=== PATIENT | male | born 1945 | race Caucasian/White ===

== ENCOUNTER 2016-07-12 23:03 | Inpatient (IN) ==
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
[2016-07-12] MEDS ORDERED: NS 1,000 ML IV SCH (23:45)
[2016-07-13] MEDS ORDERED: SALINE FLUSH 10ml SYRINGE IV PRN (00:09)
[2016-07-13] MEDS ORDERED: HALOPERIDOL 0.5 MG TABLET PO PRN (02:19)
[2016-07-13] MEDS ORDERED: HALOPERIDOL 5 MG/ML INJECTION IM PRN (02:19)
[2016-07-13] MEDS ORDERED: LORazepam 0.5 MG TABLET PO PRN (02:19)
--- NOTE | 2016-07-13 07:41 | CT Scan Report ---
Indication: falls with acute mental status change PROCEDURE: CT head/brain wo con: Encounter: Initial Comparison: September 13, 2015 Technique: Axial CT images through the head were performed without contrast. Iterative Reconstruction dose reducing technique was utilized. FINDINGS: Mild to moderate atrophy. The ventricles are stable. There is no evidence of acute intracranial hemorrhage, midline displacement, or mass effect. There are scattered areas of low attenuation in the white matter which most likely represent changes of chronic microvascular ischemia. The CT attenuation of the brain parenchyma is otherwise normal within the cerebellum, brain stem, and cerebral hemispheres. The tympanic cavities and mastoid air cells are free of appreciable disease. There are no definite fractures of the skull base, calvarium, or visualized portion of the midface. IMPRESSION: No CT evidence of acute traumatic intracranial injury. Stable head CT. There is a preliminary report by [employer] radiologic. .
[2016-07-13] MEDS ORDERED: CYANOCOBALAMIN (B-12) 500mcg TABLET PO SCH (09:00)
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
[2016-07-13] MEDS ORDERED: ASPIRIN 81 MG CHEWABLE TABLET PO SCH (09:30)
[2016-07-13] MEDS: TAMSULOSIN 0.4 MG CAPSULE PO SCH (09:42)
[2016-07-13] MEDS: ESCITALOPRAM 10 MG TABLET PO SCH (09:42)
[2016-07-13] MEDS: AMLODIPINE 10 MG TABLET PO SCH (09:42)
[2016-07-13] MEDS: APIXABAN 5 MG TABLET PO SCH ×3 (09:50→21:29)
[2016-07-13] MEDS: ASPIRIN 81 MG CHEWABLE TABLET PO SCH (10:16)
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
--- NOTE | 2016-07-13 15:21 | XRay Report ---
INDICATION: Altered mental status PROCEDURE: CHEST 2-VIEWS UPRIGHT (PA & LAT) Encounter: Initial COMPARISON: October 30, 2015 FINDINGS: The lungs are clear without evidence of focal abnormal airspace opacity. There is no pleural effusion or pneumothorax. The heart size, mediastinal contours and pulmonary vascularity are stable. Prior CABG. IMPRESSION: Stable chest without acute cardiopulmonary disease. .
[2016-07-13] MEDS: TRAZODONE 50 MG TABLET PO SCH (21:29)
[2016-07-13] MEDS: ROSUVASTATIN 10 MG TABLET PO SCH (21:52)
[2016-07-13] MEDS ORDERED: ROSUVASTATIN 10 MG TABLET PO SCH (22:00)
[2016-07-14] MEDS: TAMSULOSIN 0.4 MG CAPSULE PO SCH (08:07)
[2016-07-14] MEDS: AMLODIPINE 10 MG TABLET PO SCH (08:07)
[2016-07-14] MEDS: ASPIRIN 81 MG CHEWABLE TABLET PO SCH (08:07)
[2016-07-14] MEDS: APIXABAN 5 MG TABLET PO SCH ×2 (08:07→22:39)
[2016-07-14] MEDS: ESCITALOPRAM 10 MG TABLET PO SCH (08:07)
--- NOTE | 2016-07-14 19:39 | Neuropsych Progress Note ---
Generations Subjective Date: 07/14/16 - Sujective/Severity of Illness Medications: Amlodipine Besylate (Norvasc) 10 mg PO DAILY [facility] Last Admin: 07/14/16 08:07 Dose: 10 mg Apixaban (Eliquis) 5 mg PO BID [facility] Last Admin: 07/14/16 08:07 Dose: 5 mg Aspirin (Asa) 81 mg PO DAILY [facility] Last Admin: 07/14/16 08:07 Dose: 81 mg Escitalopram Oxalate (Lexapro) 10 mg PO DAILY [facility] Last Admin: 07/14/16 08:07 Dose: 10 mg Lisinopril/HCTZ (Prinzide 20/12.5) 1 tab PO DAILY [facility] Haloperidol (Haldol) 0.5 mg PO Q6H PRN PRN Reason: Extreme agitation Haloperidol Lactate (Haldol) 0.5 mg IM Q6H PRN PRN Reason: Extreme agitation Lorazepam (Ativan) 0.5 mg PO Q6H PRN PRN Reason: Extreme agitation Lorazepam (Ativan Inj) 0.5 mg IM Q6H PRN PRN Reason: Extreme agitation Rosuvastatin Calcium (Crestor) [address] [facility] Last Admin: 07/13/16 21:52 Dose: 5 mg Tamsulosin HCl (Flomax) 0.4 mg PO DAILY [facility] Last Admin: 07/14/16 08:07 Dose: 0.4 mg Trazodone HCl (Desyrel) [address] [facility] Last Admin: 07/13/16 21:29 Dose: 50 mg Subjective: Patient seen and chart reviewed. Case discussed with treatment team. On interview, patient is fully oriented, pleasant and cooperative. He reports that his mood is good and that he talked with his sister today. He admits to being frustrated with her for doing things like locking the barn so he can't get to it. Discussed some of his behavior changes over the past several months and he has limited insight -- he does state he spent too much money but is not upfront about what this was on (shares with me insurance for his motorcycle, new taillights but leaves out [employer] purchases, space heaters, etc. mentioned by sister). He can't describe any other behaviors uncharacteristic of him recently. Seems to be somewhat episodic per sister's report. Patient denies any SI, HI or AVH. Patient denies any adverse side effects related to psychotropic medications. Nursing staff report patient is pleasant, participates in activities well. At times he seems like he is tracking well but today had forgotten that he ate lunch shortly after doing so. No behavioral issues on unit. Patient slept 5.5 hours overnight in addition to a daytime nap yesterday. VSS. Patient is eating well. Psychotropic PRNs required in the past 24 hours: none. Hypernatremia improved - hospitalist following. Start Time: 14:00 Stop Time: 14:20 Mental Status Exam Vitals: Last Vital Signs Temp 98.3 F 07/14/16 16:22 Pulse 65 07/14/16 16:22 Resp 18 07/14/16 16:22 BP 147/60 H 07/14/16 16:22 Pulse Ox 93 07/14/16 16:00 Height: 1.68 m Weight: 101 kg - Mental Status Exam Muscle Strength/Tone: Normal Dressing: Casual Grooming: Fair Attitude: Cooperative Motor Activity: Normal Eye Contact: Good Speech: Normal Volume: Normal Rhythm: Appropriate Rhythm Orientation: Oriented to person, Oriented to place, Oriented to time Mood: Neutral Rate of Thoughts: Delayed Thought Organization: Circumstantial Associations: Illogical Abstract Reasoning: Poor abstract reasoning Thought Content: Other (Frustration with sister, limited insight - no other abnormal thought content elicited) Perception/Psychotic: Perception Normal Language: Naming Intact Fund of Knowledge: Other (Decreased from baseline) Memory: Poor-recent Suicidal Ideation: Denies Homicidal Ideation: Denies Insight: Limited Judgement: Limited Impulse Control: Fair - Laboratory Result Diagrams: 07/12/16 23:30 07/14/16 04:48 Laboratory Results - last 24 hr 07/14/16 04:48 Turbidity 20 Sodium 145 H Potassium 4.1 Chloride 105 Carbon Dioxide 29 Anion Gap 11 BUN 25.0 H Creatinine 0.8 GFR Calculation 96 BUN/Creatinine Ratio 31 H Glucose 91 Calculated Osmolality 283 H Calcium 9.0 Icterus Index 2 Specimen Hemolysis 15 Assessment and Plan (1) Major 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 Current visit: Yes Status: Chronic 07/14/16: Plan to order BRIAN/RIPPA as patient is managing own finances, continues to drive, etc. Discuss with sister to assess for past symptoms consistent with manic episodes and if appropriate, consider tapering Lexapro and alternatively starting a mood stabilizer. (2) Depression Current visit: Yes Status: Chronic (3) Acute hypernatremia Current visit: Yes Status: Acute (4) CAD (coronary artery disease) Current visit: Yes Status: Chronic (5) Chronic back pain Current visit: Yes Status: Chronic (6) HTN (hypertension) Current visit: Yes Status: Chronic (7) Hyperlipidemia Current visit: Yes Status: Chronic (8) Normocytic anemia Current visit: Yes Status: Chronic (9) Obesity (BMI 30-39.9) Current visit: Yes Status: Chronic (10) PAF (paroxysmal atrial fibrillation) Current visit: Yes Status: Chronic
[2016-07-14] MEDS: TRAZODONE 50 MG TABLET PO SCH (22:39)
[2016-07-14] MEDS: ROSUVASTATIN 10 MG TABLET PO SCH (22:40)
[2016-07-15] MEDS: ASPIRIN 81 MG CHEWABLE TABLET PO SCH (08:48)
[2016-07-15] MEDS: AMLODIPINE 10 MG TABLET PO SCH (08:49)
[2016-07-15] MEDS: ESCITALOPRAM 10 MG TABLET PO SCH (08:49)
[2016-07-15] MEDS: TAMSULOSIN 0.4 MG CAPSULE PO SCH (08:50)
[2016-07-15] MEDS: APIXABAN 5 MG TABLET PO SCH ×2 (08:50→20:15)
--- NOTE | 2016-07-15 15:40 | Neuropsych Progress Note ---
Generations Subjective Date: 07/15/16 - Sujective/Severity of Illness Medications: Amlodipine Besylate (Norvasc) 10 mg PO DAILY [facility] Last Admin: 07/15/16 08:49 Dose: 10 mg Apixaban (Eliquis) 5 mg PO BID [facility] Last Admin: 07/15/16 08:50 Dose: 5 mg Aspirin (Asa) 81 mg PO DAILY [facility] Last Admin: 07/15/16 08:48 Dose: 81 mg Lisinopril/HCTZ (Prinzide 20/12.5) 1 tab PO DAILY [facility] Haloperidol (Haldol) 0.5 mg PO Q6H PRN PRN Reason: Extreme agitation Last Admin: 07/15/16 14:42 Dose: 0.5 mg Haloperidol Lactate (Haldol) 0.5 mg IM Q6H PRN PRN Reason: Extreme agitation Lorazepam (Ativan) 0.5 mg PO Q6H PRN PRN Reason: Extreme agitation Last Admin: 07/15/16 14:42 Dose: 0.5 mg Lorazepam (Ativan Inj) 0.5 mg IM Q6H PRN PRN Reason: Extreme agitation Rosuvastatin Calcium (Crestor) 5 mg PO [facility] Last Admin: 07/14/16 22:40 Dose: 5 mg Tamsulosin HCl (Flomax) 0.4 mg PO DAILY [facility] Last Admin: 07/15/16 08:50 Dose: 0.4 mg Trazodone HCl (Desyrel) 50 mg PO [facility] Last Admin: 07/14/16 22:39 Dose: 50 mg Subjective: Patient seen and chart reviewed. Case discussed with treatment team. Patient reportedly has had a change in behavior, increased confusion and irritability. He slept only 3.5-4 hours overnight and has had multiple loose stools. He continues to eat well. On interview, patient has limited insight into any of this. He believes he slept 8 hours and says his mood is good. Again asked about past history of manic symptoms, which he denies. He then goes on to tell me about a shot to cure cancer that is given every 3 years and perseverates on this through the interview. Patient denies any SI, HI or AVH. I spoke with his sister/DPOA who was visiting this morning and says this behavior is similar to what has been happening at home. I asked about past symptoms of stacie and she stated she cannot give information prior to the past 3 years, but reports similar episodes increased irritability, decreased sleep, increased confusion and disorganized behavior, increased spending. Discussed med changes with her and she gave informed consent to discontinue Lexapro, start Depakote alternatively once medically stable. Ordered labs (CBC, CMP, UA, chest x-ray and head CT) to rule out any medical cause behind behavior/ mental status change. Psychotropic PRNs required in the past 24 hours: Ativan and Haldol PO given once in past 24 hours. Start Time: 15:00 Stop Time: 15:20 Mental Status Exam Vitals: Last Vital Signs Temp 98.5 F 07/15/16 08:00 Pulse 76 07/15/16 08:00 Resp 22 07/15/16 08:00 BP 146/71 H 07/15/16 08:00 Pulse Ox 97 07/15/16 08:00 Height: 1.68 m Weight: 101 kg - Mental Status Exam Muscle Strength/Tone: Normal Dressing: Casual Grooming: Fair Attitude: Cooperative, Argumentative (moreso with staff today) Motor Activity: Normal Eye Contact: Good Speech: Normal Volume: Normal Rhythm: Appropriate Rhythm Orientation: Oriented to person, Oriented to place, Oriented to time Mood: Irritable Rate of Thoughts: Delayed Thought Organization: Circumstantial Associations: Illogical Abstract Reasoning: Poor abstract reasoning Thought Content: Other (Frustration with sister, limited insight - no other abnormal thought content elicited) Perception/Psychotic: Perception Normal Language: Naming Intact Fund of Knowledge: Other (Decreased from baseline) Memory: Poor-recent Suicidal Ideation: Denies Homicidal Ideation: Denies Insight: Limited Judgement: Limited Impulse Control: Poor - Laboratory Result Diagrams: 07/15/16 18:12 07/15/16 18:12 Assessment and Plan (1) Bipolar disorder Qualifiers: Active/Remission status: currently active Current bipolar episode type: hypomanic Qualified Code(s): F31.0 - Bipolar disorder, current episode hypomanic Current visit: Yes Status: Chronic 07/15/16: Will order CBC, CMP, UA, chest x-ray, head CT to rule out medical cause for behavior change. If WNL, discontinue Lexapro and start Depakote for mood stabilization. Obtained informed consent from sister/DPOA on 07/15/16. (2) Major 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 Current visit: Yes Status: Chronic (3) Acute hypernatremia Problem details: Due to vascular changes and frontotemporal disease Current visit: Yes Status: Acute (4) CAD (coronary artery disease) Current visit: Yes Status: Chronic (5) Chronic back pain Current visit: Yes Status: Chronic (6) HTN (hypertension) Current visit: Yes Status: Chronic (7) Hyperlipidemia Current visit: Yes Status: Chronic (8) Normocytic anemia Current visit: Yes Status: Chronic (9) Obesity (BMI 30-39.9) Current visit: Yes Status: Chronic (10) PAF (paroxysmal atrial fibrillation) Current visit: Yes Status: Chronic
--- NOTE | 2016-07-15 16:28 | XRay Report ---
INDICATION: mental status change PROCEDURE: CHEST 2-VIEWS UPRIGHT (PA & LAT) Encounter: Initial COMPARISON: July 13, 2016 Findings: The lungs are stable in appearance without new focal airspace consolidation. There is no pleural effusion or pneumothorax. The heart size, pulmonary vascularity and mediastinal contours are unchanged. Prior CABG. IMPRESSION: Stable appearance of the chest without acute cardiopulmonary disease. .
--- NOTE | 2016-07-15 16:39 | Progress Note ---
Subjective: Abdon was in the dayroom. He didn't remember meeting me 2 days ago. He has had about 5 loose stools today but he states they have not been diarrhea. He feels bloated. No chest pain or SOA. As I was speaking to another patient, he joined in on our conversation and began to report his own medical history and offer treatment suggestions. Staff has noticed that he has been fixated on some behaviors today. He did not sleep very well last night. Objective Vital signs: Temp Pulse Resp BP Pulse Ox 98.2 F 79 18 146/74 H 98 07/15/16 15:44 07/15/16 15:44 07/15/16 15:44 07/15/16 15:44 07/15/16 15:44 Weight: 101 kg - Constitutional Present: no acute distress, well nourished, well developed, obese - Routine HEENT Exam Eye: Absent: conjunctival icterus - Routine Respiratory Exam Present: CTA bilaterally - Routine Cardiovascular Exam Present: S1, S2 - Routine Abdominal Exam Present: normoactive bowel sounds (slightly decreased), non tender, distended ( mild) - Routine Extremities Exam Present: no edema, pulses intact - Routine Musculoskeletal Exam Musculoskeletal: moving extremities well - Routine Skin Exam Present: intact, dry, warm - Routine Neurological Exam Present: alert - Routine Psychiatric Exam Present: normal affect Results - Labs CBC & Chem 7: 07/12/16 23:30 07/14/16 04:48 Assessment and Plan (1) Major neurocognitive disorder, due to Alzheimer's disease, with behavioral disturbance, mild Current visit: Yes Status: Acute (2) PAF (paroxysmal atrial fibrillation) Current visit: Yes Status: Chronic (3) CAD (coronary artery disease) Current visit: Yes Status: Chronic (4) HTN (hypertension) Current visit: Yes Status: Chronic (5) Hyperlipidemia Current visit: Yes Status: Chronic (6) Obesity (BMI 30-39.9) Current visit: Yes Status: Chronic (7) Chronic back pain Current visit: Yes Status: Chronic (8) Depression Current visit: Yes Status: Chronic (9) Acute hypernatremia Current visit: Yes Status: Acute (10) Normocytic anemia Current visit: Yes Status: Chronic Assessment and Plan: Loose stools, mild abdominal distention -monitor for now - still taking in adequate oral -GI panel ordered Hypernatremia -improved from 151 to 145 Lipids pending CXR neg. Psych -Depakote increased Sepsis Assessment - Evaluation Sepsis screening result: No Definite Risk - Focused Exam Vital Signs Temp Pulse Resp BP Pulse Ox 07/15/16 15:44 98.2 F 79 18 146/74 H 98 07/15/16 08:00 98.5 F 76 22 146/71 H 97 Cardiovascular exam: Present: S1, S2 Capillary refill: < 2-3 Seconds Hospital Course Summary Disclaimer: The visit summary below is not to be considered part of the above Progress Note. Hospital Course: 07/13/16 09:34 1. Hypernatremia - an IV was placed, but he has pulled it out. I encouraged him to drink more fluids today. Reassess BMP tomorrow am. 2. Microcytic anemia - routine labs such as vitamin B12 and folate have been ordered. His anemia is very mild. 3. Behavioral changes - per attending 4. CAD, PAF, and hx of CABG - check EKG. Heart was regular on exam. Continue home meds including Eliquis. Dr. Watkins is his stoker erector and servicer. 5. Falling, balance concern - monitor; consider PT eval. Head CT showed mild- moderate atrophy but no acute findings. 6. Discussed with Dr. De La Cruz (hospitalist service covering for him). Office note requested and reviewed. Medications updated according to patient's office visit from May,. 07/15/16 16:41 Loose stools, mild abdominal distention -monitor for now - still taking in adequate oral -GI panel ordered Hypernatremia -improved from 151 to 145 Lipids pending CXR neg. Psych -Depakote increased
[2016-07-15] MEDS: TRAZODONE 50 MG TABLET PO SCH (20:15)
[2016-07-15] MEDS: ROSUVASTATIN 10 MG TABLET PO SCH (20:15)
[2016-07-16] MEDS: AMLODIPINE 10 MG TABLET PO SCH (08:21)
[2016-07-16] MEDS: APIXABAN 5 MG TABLET PO SCH ×2 (08:21→20:55)
[2016-07-16] MEDS: TAMSULOSIN 0.4 MG CAPSULE PO SCH (08:21)
[2016-07-16] MEDS: ASPIRIN 81 MG CHEWABLE TABLET PO SCH (08:21)
--- NOTE | 2016-07-16 14:52 | Neuropsych Progress Note ---
Generations Subjective Date: 07/16/16 - Sujective/Severity of Illness Medications: Amlodipine Besylate (Norvasc) 10 mg PO DAILY [facility] Last Admin: 07/16/16 08:21 Dose: 10 mg Apixaban (Eliquis) 5 mg PO BID [facility] Last Admin: 07/16/16 08:21 Dose: 5 mg Aspirin (Asa) 81 mg PO DAILY [facility] Last Admin: 07/16/16 08:21 Dose: 81 mg Lisinopril/HCTZ (Prinzide 20/12.5) 1 tab PO DAILY [facility] Haloperidol (Haldol) 0.5 mg PO Q6H PRN PRN Reason: Extreme agitation Last Admin: 07/15/16 14:42 Dose: 0.5 mg Haloperidol Lactate (Haldol) 0.5 mg IM Q6H PRN PRN Reason: Extreme agitation Lorazepam (Ativan) 0.5 mg PO Q6H PRN PRN Reason: Extreme agitation Last Admin: 07/15/16 14:42 Dose: 0.5 mg Lorazepam (Ativan Inj) 0.5 mg IM Q6H PRN PRN Reason: Extreme agitation Rosuvastatin Calcium (Crestor) 5 mg PO [facility] Last Admin: 07/15/16 20:15 Dose: 5 mg Tamsulosin HCl (Flomax) 0.4 mg PO DAILY [facility] Last Admin: 07/16/16 08:21 Dose: 0.4 mg Trazodone HCl (Desyrel) 50 mg PO [facility] Last Admin: 07/15/16 20:15 Dose: 50 mg Subjective: Patient seen and chart reviewed. Case discussed with treatment team. On interview, patient is calm and cooperative. He reports his mood is good and he is feeling well. He has limited insight into symptoms but has been more cooperative and less confused today than yesterday. Patient denies any SI, HI or AVH. Patient denies any adverse side effects related to psychotropic medications. Patient slept 9 hours overnight. VSS. Patient is eating well. Psychotropic PRNs required in the past 24 hours: none. Labs, chest x-ray ordered and reviewed after change in mental status on 07/15. Head CT w/o contrast ordered and reviewed today; appears stable from previous. Discussed with sister/DPOA on 07/15 plan to hold Lexapro, start Depakote as patient's symptoms seem to be more consistent with manic episodes. Plan to start Depakote 250mg PO BID tonight. Start Time: 14:30 Stop Time: 14:50 Mental Status Exam Vitals: Last Vital Signs Temp 98.3 F 07/15/16 19:35 Pulse 86 07/16/16 07:54 Resp 16 07/16/16 07:54 BP 135/83 07/16/16 07:54 Pulse Ox 94 07/16/16 07:54 Height: 1.68 m Weight: 101 kg - Mental Status Exam Muscle Strength/Tone: Normal Dressing: Casual Grooming: Fair Attitude: Cooperative Motor Activity: Normal Eye Contact: Good Speech: Normal Volume: Normal Rhythm: Appropriate Rhythm Orientation: Oriented to person, Oriented to place, Oriented to time Mood: Other (Pleasant today, has been labile day to day) Rate of Thoughts: Delayed Thought Organization: Circumstantial, Perseverations (on sister taking away keys , locking barn to keep him from driving, etc.) Associations: Illogical Abstract Reasoning: Poor abstract reasoning Thought Content: Other (Frustration with sister, limited insight - no other abnormal thought content elicited) Perception/Psychotic: Perception Normal Language: Naming Intact Fund of Knowledge: Other (Decreased from baseline) Memory: Poor-recent Suicidal Ideation: Denies Homicidal Ideation: Denies Insight: Limited Judgement: Limited Impulse Control: Good (today; however has been variable day to day) - Laboratory Result Diagrams: 07/15/16 18:12 07/15/16 18:12 Laboratory Results - last 24 hr 07/15/16 07/15/16 07/15/16 17:55 18:12 18:12 WBC 8.0 RBC 4.14 L Hgb 12.2 L Hct 37.8 L MCV 91.3 MCH 29.5 MCHC 32.3 RDW Std Deviation 47.6 Plt Count 208 MPV 10.4 Immature Gran % (Auto) 0.3 Neut % (Auto) 60.9 Lymph % (Auto) 28.1 [place] % (Auto) 9.0 Eos % (Auto) 1.6 Baso % (Auto) 0.1 Neut # 4.8 Lymph # 2.2 [place]pson # 0.7 Eos # 0.1 Baso # 0.0 Abs Immat Gran (auto) 0.02 Turbidity < 20.0 Sodium 143 Potassium 3.8 Chloride 103 Carbon Dioxide 25 Anion Gap 15 BUN 20.0 Creatinine 0.9 GFR Calculation 84 BUN/Creatinine Ratio 22 Glucose 132 H Calculated Osmolality 280 Calcium 9.2 Total Bilirubin 0.30 Icterus Index < 2.0 AST 33 ALT 47 Alkaline Phosphatase 54 Total Protein 7.3 Albumin 4.5 Globulin 2.8 Albumin/Globulin Ratio 1.6 Specimen Hemolysis < 15.0 Ur Collection Type Urine, clean catch Urine Color Yellow Urine Clarity Clear Urine pH 6.0 Ur Specific [place] 1.015 Urine Protein Negative Urine Glucose (UA) Negative Urine Ketones Negative Urine Occult Blood Negative Urine Nitrate Negative Urine Bilirubin Negative Urine Urobilinogen 0.2 Ur Leukocyte Esterase Negative Urinalysis Comment Microscopic not ind. Assessment and Plan (1) Bipolar disorder Qualifiers: Active/Remission status: currently active Current bipolar episode type: hypomanic Qualified Code(s): F31.0 - Bipolar disorder, current episode hypomanic Current visit: Yes Status: Chronic (2) Major 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 Current visit: Yes Status: Chronic (3) Acute hypernatremia Problem details: Due to vascular changes and frontotemporal disease Current visit: Yes Status: Acute (4) CAD (coronary artery disease) Current visit: Yes Status: Chronic (5) Chronic back pain Current visit: Yes Status: Chronic (6) HTN (hypertension) Current visit: Yes Status: Chronic (7) Hyperlipidemia Current visit: Yes Status: Chronic (8) Normocytic anemia Current visit: Yes Status: Chronic (9) Obesity (BMI 30-39.9) Current visit: Yes Status: Chronic (10) PAF (paroxysmal atrial fibrillation) Current visit: Yes Status: Chronic 07/16/16: Have held Lexapro; plan to start Depakote DR 250mg PO BID tonight for mood stabilization. Obtained informed consent from patient's sister/DPOA on 07/15.
--- NOTE | 2016-07-16 15:28 | CT Scan Report ---
Indication: AMS PROCEDURE: CT head/brain wo con: Encounter: Initial Comparison: July 12, 2016 Technique: Axial CT images through the head were performed without contrast. Iterative Reconstruction dose reducing technique was utilized. FINDINGS: Generalized cerebral atrophy. The ventricles are unchanged. There are scattered areas of low attenuation in the white matter which most likely represent changes from chronic microvascular ischemia. The brainstem, cerebellum, and cerebral hemispheres otherwise have a normal morphology and CT attenuation. There is no evidence of midline displacement. No hemorrhage, signs of acute territorial stroke, mass effect, mass lesions, or edema is evident. The visualized portions of the skull base, midface, and calvarium demonstrate no abnormality. The paranasal sinuses are well aerated and free of significant disease. The tympanic and mastoid cavities appear normal. IMPRESSION: No acute intracranial abnormality or hemorrhage. Stable head CT. .
[2016-07-16] MEDS: DIVALPROEX 250 MG TABLET PO SCH (20:57)
[2016-07-16] MEDS: TRAZODONE 50 MG TABLET PO SCH (21:52)
[2016-07-16] MEDS: ROSUVASTATIN 10 MG TABLET PO SCH (21:54)
--- NOTE | 2016-07-17 06:31 | Neuropsych Progress Note ---
[facility] Subjective Date: 07/17/16 - Sujective/Severity of Illness Medications: Amlodipine Besylate (Norvasc) 10 mg PO DAILY [facility] Last Admin: 07/16/16 08:21 Dose: 10 mg Apixaban (Eliquis) 5 mg PO BID [facility] Last Admin: 07/16/16 20:55 Dose: 5 mg Aspirin (Asa) 81 mg PO DAILY [facility] Last Admin: 07/16/16 08:21 Dose: 81 mg Divalproex Sodium (Depakote) 250 mg PO BID [facility] Last Admin: 07/16/16 20:57 Dose: 250 mg Lisinopril/HCTZ (Prinzide 20/.5) 1 tab PO DAILY [facility] Haloperidol (Haldol) 0.5 mg PO Q6H PRN PRN Reason: Extreme agitation Last Admin: 07/15/16 14:42 Dose: 0.5 mg Haloperidol Lactate (Haldol) 0.5 mg IM Q6H PRN PRN Reason: Extreme agitation Lorazepam (Ativan) 0.5 mg PO Q6H PRN PRN Reason: Extreme agitation Last Admin: 07/15/16 14:42 Dose: 0.5 mg Lorazepam (Ativan Inj) 0.5 mg IM Q6H PRN PRN Reason: Extreme agitation Rosuvastatin Calcium (Crestor) 5 mg PO [facility] Last Admin: 07/16/16 21:54 Dose: 5 mg Tamsulosin HCl (Flomax) 0.4 mg PO DAILY [facility] Last Admin: 07/16/16 08:21 Dose: 0.4 mg Trazodone HCl (Desyrel) 50 mg PO [facility] Last Admin: 07/16/16 21:52 Dose: 50 mg Subjective: Pt. seen, chart reviewed. Case discussed w RN. Mr. Alonzo is a 71 year old white male here related to some mood symptoms consistent w Bipolar but is also noted to have some mild dementia as well. He was admitted from home secondary to confusion, risky behaviors, spending money inappropriately. Was noted to have failed DL test twice. Lives w his sister. Keeps wanting to take his motorcycle for a ride which hasn't even ran in years. He has two previous admits in recent years. RN reports his belligerent behaviors have calmed down some. Slept thru the night last night. Appetite is fair. Ambulates well. They report no daytime sedation. When I spoke with him, he expresses "I need to be let out of here." He has poor insight into why it is he's here but understands to some extent when I explained to him his risky behavior, spending , etc and that his sister is concerned. He reports his mood today is good. Start Time: 06:15 Stop Time: 06:30 Mental Status Exam Vitals: Last Vital Signs Temp 98.2 F 07/16/16 23:54 Pulse 67 07/16/16 23:54 Resp 15 07/16/16 23:54 BP 124/65 07/16/16 23:54 Pulse Ox 94 07/16/16 23:54 Height: 5 ft 6 in Weight: 101 kg - Mental Status Exam Muscle Strength/Tone: Normal Dressing: Casual Grooming: Fair Attitude: Cooperative Motor Activity: Normal Eye Contact: Good Speech: Normal Volume: Normal Rhythm: Appropriate Rhythm Orientation: Oriented to person, Oriented to place, Oriented to time Mood: Neutral, Other (Pleasant with me this morning, this has reportedly varied , labile at times) Rate of Thoughts: Delayed Thought Organization: Circumstantial, Perseverations (on sister taking away keys , locking barn to keep him from driving, etc.) Associations: Illogical Abstract Reasoning: Poor abstract reasoning Thought Content: Other (Frustration with sister, limited insight - no other abnormal thought content elicited) Perception/Psychotic: Perception Normal Language: Naming Intact Fund of Knowledge: Other (Decreased from baseline) Memory: Poor-recent Suicidal Ideation: Denies Homicidal Ideation: Denies Insight: Limited Judgement: Limited Impulse Control: Fair - Laboratory Result Diagrams: 07/15/16 18:12 07/15/16 18:12 Laboratory Results - last 24 hr 07/16/16 20:31 Specimen Comment Reorder as needed Tests Not Done Gip Reason Tests Not Done Stool, not diarrheic Assessment and Plan 617: Depakote started just yesterday. Will make sure he tolerates this today but will consider increase tomorrow, and then likely schedule VPA level for Tuesday.
[2016-07-17] MEDS: DIVALPROEX 250 MG TABLET PO SCH ×2 (11:36→20:43)
[2016-07-17] MEDS: TAMSULOSIN 0.4 MG CAPSULE PO SCH (11:36)
[2016-07-17] MEDS: ASPIRIN 81 MG CHEWABLE TABLET PO SCH (11:36)
[2016-07-17] MEDS: APIXABAN 5 MG TABLET PO SCH ×2 (11:36→20:43)
[2016-07-17] MEDS: AMLODIPINE 10 MG TABLET PO SCH (11:36)
--- NOTE | 2016-07-17 16:03 | Progress Note ---
<Treasure Dominguez - Last Filed: 07/17/16 16:00> Subjective: Abdon is in the TV area. Expresses frustration- wants to be at home. Is cooperative. Some variable behaviors documented per nurses. Difficulty with hygiene. Bowel/bladder incontinence. Objective Vital signs: Temp Pulse Resp BP Pulse Ox 97.8 F 66 16 133/91 H 92 07/17/16 07:48 07/17/16 07:48 07/17/16 07:48 07/17/16 07:48 07/17/16 07:48 Weight: 101 kg - Constitutional Present: no acute distress, well nourished, well developed, obese - Routine HEENT Exam Head: Present: normocephalic, atraumatic - Routine Respiratory Exam Present: CTA bilaterally. Absent: accessory muscle use, prolonged expiratory phase, rales, respiratory distress, rhonchi, wheezes, crackles - Routine Cardiovascular Exam Present: S1, S2. Absent: RRR (IRRR), murmur Comments: Occasional pauses in HR. - Routine Abdominal Exam Present: soft, normoactive bowel sounds, non distended, non tender - Routine Extremities Exam Absent: edema - Routine Musculoskeletal Exam Musculoskeletal: no tenderness - Routine Skin Exam Present: intact, dry, warm - Routine Neurological Exam Present: alert, moving all extremities. Absent: oriented X3 - Routine Psychiatric Exam Present: normal affect, cooperative. Absent: normal thought process, good insight, good judgment Results - Labs CBC & Chem 7: 07/15/16 18:12 07/15/16 18:12 Assessment and Plan (1) Major neurocognitive disorder, due to Alzheimer's disease, with behavioral disturbance, mild Current visit: Yes Status: Acute (2) PAF (paroxysmal atrial fibrillation) Current visit: Yes Status: Chronic (3) CAD (coronary artery disease) Current visit: Yes Status: Chronic (4) HTN (hypertension) Current visit: Yes Status: Chronic (5) Hyperlipidemia Current visit: Yes Status: Chronic (6) Obesity (BMI 30-39.9) Current visit: Yes Status: Chronic (7) Chronic back pain Current visit: Yes Status: Chronic (8) Depression Current visit: Yes Status: Deleted (9) Acute hypernatremia Problem details: Due to vascular changes and frontotemporal disease Current visit: Yes Status: Acute (10) Normocytic anemia Current visit: Yes Status: Chronic Assessment and Plan: 07/17/16- *Behavioral changes/Memory loss Per attending. Recurrent admissions due to risky behaviors. Support offered. *HTN- controlled. *Loose stool- resolved. *Hypernatremia- Resolved. Repeat labs Tuesday. Chart reviewed. Continue supportive care. Sepsis Assessment - Evaluation Sepsis screening result: No Definite Risk - Focused Exam Vital Signs Temp Pulse Resp BP Pulse Ox 07/17/16 07:48 97.8 F 66 16 133/91 H 92 Respiratory exam: Present: CTA bilaterally Cardiovascular exam: Present: S1, S2 Capillary refill: < 2-3 Seconds Hospital Course Summary Disclaimer: The visit summary below is not to be considered part of the above Progress Note. Hospital Course: 07/13/16 09:34 1. Hypernatremia - an IV was placed, but he has pulled it out. I encouraged him to drink more fluids today. Reassess BMP tomorrow am. 2. Microcytic anemia - routine labs such as vitamin B12 and folate have been ordered. His anemia is very mild. 3. Behavioral changes - per attending 4. CAD, PAF, and hx of CABG - check EKG. Heart was regular on exam. Continue home meds including Eliquis. Dr. Watkins is his special needs tutor. 5. Falling, balance concern - monitor; consider PT eval. Head CT showed mild- moderate atrophy but no acute findings. 6. Discussed with Dr. De La Cruz (hospitalist service covering for him). Office note requested and reviewed. Medications updated according to patient's office visit from May,. 07/15/16 16:41 Loose stools, mild abdominal distention -monitor for now - still taking in adequate oral -GI panel ordered Hypernatremia -improved from 151 to 145 Lipids pending CXR neg. Psych -Depakote increased 07/17/16 16:06 07/17/16- *Behavioral changes/Memory loss Per attending. Recurrent admissions due to risky behaviors. Support offered. *HTN- controlled. *Loose stool- resolved. *Hypernatremia- Resolved. Repeat labs Tuesday. Chart reviewed. Continue supportive care. <Melida Caro - Last Filed: 07/17/16 20:43> Subjective: 07/17/2016-I reviewed this chart, the patient history, and the PROJECT MANAGER/DESIGN MANAGER's/PA's documented findings as above. We discussed and formulated the assessment and plan as above with the additions below.-Dr. Caro Patient was seen this evening in his room lying in bed. He is awake. He denies any complaints. He states he wants to go home tomorrow. On exam he is alert and in no acute distress. Chest is clear to auscultation. Cardiovascular reveals a well controlled rate but an irregular rhythm. No murmurs. Abdomen is obese, soft, nontender with positive bowel sounds. Extremities reveal no edema. Skin is warm and dry and without rashes. Overall, the patient appears to be medically stable. Continue a look was for paroxysmal atrial fibrillation. Rate is controlled. B- 12 and folate are within normal limits. TSH is normal. Objective Vital signs: Temp Pulse Resp BP Pulse Ox 97.8 F 66 16 133/91 H 92 07/17/16 07:48 07/17/16 07:48 07/17/16 07:48 07/17/16 07:48 07/17/16 07:48 Results - Labs CBC & Chem 7: 07/15/16 18:12 07/15/16 18:12 Assessment and Plan (1) Major neurocognitive disorder, due to Alzheimer's disease, with behavioral disturbance, mild Current visit: Yes Status: Acute (2) PAF (paroxysmal atrial fibrillation) Current visit: Yes Status: Chronic (3) CAD (coronary artery disease) Current visit: Yes Status: Chronic (4) HTN (hypertension) Current visit: Yes Status: Chronic (5) Hyperlipidemia Current visit: Yes Status: Chronic (6) Obesity (BMI 30-39.9) Current visit: Yes Status: Chronic (7) Chronic back pain Current visit: Yes Status: Chronic (8) Depression Current visit: Yes Status: Deleted (9) Acute hypernatremia Problem details: Due to vascular changes and frontotemporal disease Current visit: Yes Status: Acute (10) Normocytic anemia Current visit: Yes Status: Chronic Hospital Course Summary Disclaimer: The visit summary below is not to be considered part of the above Progress Note.
[2016-07-17] MEDS: ROSUVASTATIN 10 MG TABLET PO SCH ×2 (20:42→21:04)
[2016-07-17] MEDS: TRAZODONE 50 MG TABLET PO SCH ×2 (20:42→21:05)
--- NOTE | 2016-07-18 07:40 | Neuropsych Progress Note ---
[facility] Subjective Date: 07/18/16 - Sujective/Severity of Illness Medications: Amlodipine Besylate (Norvasc) 10 mg PO DAILY [facility] Last Admin: 07/17/16 11:36 Dose: 10 mg Apixaban (Eliquis) 5 mg PO BID [facility] Last Admin: 07/17/16 20:43 Dose: 5 mg Aspirin (Asa) 81 mg PO DAILY [facility] Last Admin: 07/17/16 11:36 Dose: 81 mg Divalproex Sodium (Depakote) 250 mg PO BID [facility] Last Admin: 07/17/16 20:43 Dose: 250 mg Lisinopril/HCTZ (Prinzide 20/.5) 1 tab PO DAILY [facility] Haloperidol (Haldol) 0.5 mg PO Q6H PRN PRN Reason: Extreme agitation Last Admin: 07/15/16 14:42 Dose: 0.5 mg Haloperidol Lactate (Haldol) 0.5 mg IM Q6H PRN PRN Reason: Extreme agitation Lorazepam (Ativan) 0.5 mg PO Q6H PRN PRN Reason: Extreme agitation Last Admin: 07/15/16 14:42 Dose: 0.5 mg Lorazepam (Ativan Inj) 0.5 mg IM Q6H PRN PRN Reason: Extreme agitation Rosuvastatin Calcium (Crestor) 5 mg PO [facility] Last Admin: 07/17/16 21:04 Dose: Not Given Tamsulosin HCl (Flomax) 0.4 mg PO DAILY [facility] Last Admin: 07/17/16 11:36 Dose: 0.4 mg Trazodone HCl (Desyrel) 50 mg PO [facility] Last Admin: 07/17/16 21:05 Dose: Not Given Subjective: Pt seen. Chart reviewed. Case discussed w RN. Rn reports he has been "bored" here and repeatedly wants to "go home." He is fairly oriented, off on day. Has insight into why he's here to some extent, "got in an argument with my sister." Slept just 4.5 hours last night but he's sleeping this AM. His Trazodone was not given last night. Appetite good. Ambulates well. Tolerating Depakote fairly well thus far. Start Time: 07:00 Stop Time: 07:15 Mental Status Exam Vitals: Last Vital Signs Temp 98.5 F 07/18/16 00:50 Pulse 66 07/18/16 00:50 Resp 18 07/18/16 00:50 BP 135/57 07/18/16 00:50 Pulse Ox 94 07/18/16 00:50 Height: 5 ft 6 in Weight: 101 kg - Mental Status Exam Muscle Strength/Tone: Normal Dressing: Casual Grooming: Fair Attitude: Cooperative Motor Activity: Normal Eye Contact: Good Speech: Normal Volume: Normal Rhythm: Appropriate Rhythm Orientation: Oriented to person, Oriented to place, Oriented to time Mood: Neutral, Other (bored,) Rate of Thoughts: Delayed Thought Organization: Circumstantial, Perseverations (on sister taking away keys , locking barn to keep him from driving, etc.) Associations: Illogical Abstract Reasoning: Poor abstract reasoning Thought Content: Other (Frustration with sister, limited insight - no other abnormal thought content elicited) Perception/Psychotic: Perception Normal Language: Naming Intact Fund of Knowledge: Other (Decreased from baseline) Memory: Poor-recent Suicidal Ideation: Denies Homicidal Ideation: Denies Insight: Limited Judgement: Limited Impulse Control: Fair - Laboratory Result Diagrams: 07/15/16 18:12 07/15/16 18:12 Assessment and Plan (1) Bipolar disorder Qualifiers: Active/Remission status: currently active Current bipolar episode type: hypomanic Qualified Code(s): F31.0 - Bipolar disorder, current episode hypomanic Current visit: Yes Status: Chronic 07.18.16: Increase Depakote to 250mg PO q AM, 500mg PO q HS. VPA level for 07.21.16.
[2016-07-18] MEDS: AMLODIPINE 10 MG TABLET PO SCH (11:26)
[2016-07-18] MEDS: APIXABAN 5 MG TABLET PO SCH ×2 (11:26→20:05)
[2016-07-18] MEDS: TAMSULOSIN 0.4 MG CAPSULE PO SCH (11:26)
[2016-07-18] MEDS: DIVALPROEX 250 MG TABLET PO SCH (11:26)
[2016-07-18] MEDS: ASPIRIN 81 MG CHEWABLE TABLET PO SCH (11:26)
[2016-07-18] MEDS: TRAZODONE 50 MG TABLET PO SCH (20:05)
[2016-07-18] MEDS: DIVALPROEX 500 MG TABLET PO SCH (20:05)
[2016-07-18] MEDS: ROSUVASTATIN 10 MG TABLET PO SCH (20:05)
[2016-07-19] MEDS: AMLODIPINE 10 MG TABLET PO SCH (08:48)
[2016-07-19] MEDS: DIVALPROEX 250 MG TABLET PO SCH (08:48)
[2016-07-19] MEDS: APIXABAN 5 MG TABLET PO SCH ×2 (08:48→20:25)
[2016-07-19] MEDS: TAMSULOSIN 0.4 MG CAPSULE PO SCH (08:48)
[2016-07-19] MEDS: ASPIRIN 81 MG CHEWABLE TABLET PO SCH (08:48)
--- NOTE | 2016-07-19 11:04 | Progress Note ---
Subjective: Abdon was sitting in the day room. He did not remember meeting me previously. He began to tell me about his medical history (specifically heart surgery) and that he smoked 3 cigarettes and then threw them out. He denied any acute problems. No chest pain or shortness of breath. He has been eating well without any GI complaints. He has been typically alert and oriented 3 and cooperative and pleasant. Objective Vital signs: Temp Pulse Resp BP Pulse Ox 97.8 F 54 L 16 120/69 92 07/19/16 07:21 07/19/16 07:21 07/19/16 07:21 07/19/16 07:21 07/19/16 07:21 Weight: 101 kg - Constitutional Present: no acute distress, well nourished, well developed, obese - Routine HEENT Exam ENT: Present: mucous membranes moist, oropharynx clear - Routine Respiratory Exam Present: CTA bilaterally - Routine Cardiovascular Exam Present: RRR, S1, S2 - Routine Abdominal Exam Present: soft, normoactive bowel sounds - Routine Extremities Exam Present: no edema, pulses intact, normal capillary refill - Routine Musculoskeletal Exam Musculoskeletal: no clubbing or cyanosis - Routine Skin Exam Present: intact, dry, warm - Routine Neurological Exam Present: alert - Routine Psychiatric Exam Present: normal affect, normal thought process Results - Labs CBC & Chem 7: 07/15/16 18:12 07/19/16 06:08 Assessment and Plan (1) Major neurocognitive disorder, due to Alzheimer's disease, with behavioral disturbance, mild Current visit: Yes Status: Acute (2) PAF (paroxysmal atrial fibrillation) Current visit: Yes Status: Chronic (3) CAD (coronary artery disease) Current visit: Yes Status: Chronic (4) HTN (hypertension) Current visit: Yes Status: Chronic (5) Hyperlipidemia Current visit: Yes Status: Chronic (6) Obesity (BMI 30-39.9) Current visit: Yes Status: Chronic (7) Chronic back pain Current visit: Yes Status: Chronic (8) Depression Current visit: Yes Status: Deleted (9) Acute hypernatremia Problem details: Due to vascular changes and frontotemporal disease Current visit: Yes Status: Acute (10) Normocytic anemia Current visit: Yes Status: Chronic Assessment and Plan: Hypernatremia -Sodium minimally elevated at 145 Hypertension -Blood pressure has been variable with occasional moderate elevations -Restart lisinopril/hydrochlorothiazide tomorrow morning Hyperlipidemia -Lipid panel resulted -hypertrigliceridemia -continue crestor Psychiatry -Dr. Ortega increased Depakote. -VPA level to be reassessed on 07/21/16. Sepsis Assessment - Evaluation Sepsis screening result: No Definite Risk - Focused Exam Vital Signs Temp Pulse Resp BP Pulse Ox 07/19/16 07:21 97.8 F 54 L 16 120/69 92 Respiratory exam: Present: CTA bilaterally Cardiovascular exam: Present: S1, S2 Capillary refill: < 2-3 Seconds Hospital Course Summary Disclaimer: The visit summary below is not to be considered part of the above Progress Note. Hospital Course: 07/13/16 09:34 1. Hypernatremia - an IV was placed, but he has pulled it out. I encouraged him to drink more fluids today. Reassess BMP tomorrow am. 2. Microcytic anemia - routine labs such as vitamin B12 and folate have been ordered. His anemia is very mild. 3. Behavioral changes - per attending 4. CAD, PAF, and hx of CABG - check EKG. Heart was regular on exam. Continue home meds including Eliquis. Dr. Watkins is his power line installer. 5. Falling, balance concern - monitor; consider PT eval. Head CT showed mild- moderate atrophy but no acute findings. 6. Discussed with Dr. De La Cruz (hospitalist service covering for him). Office note requested and reviewed. Medications updated according to patient's office visit from May,. 07/15/16 16:41 Loose stools, mild abdominal distention -monitor for now - still taking in adequate oral -GI panel ordered Hypernatremia -improved from 151 to 145 Lipids pending CXR neg. Psych -Depakote increased 07/17/16 16:06 07/17/16- *Behavioral changes/Memory loss Per attending. Recurrent admissions due to risky behaviors. Support offered. *HTN- controlled. *Loose stool- resolved. *Hypernatremia- Resolved. Repeat labs Tuesday. Chart reviewed. Continue supportive care. 07/19/16 Hypernatremia -Sodium minimally elevated at 145 Hypertension -Blood pressure has been variable with occasional moderate elevations -Restart lisinopril/hydrochlorothiazide tomorrow morning Hyperlipidemia -Lipid panel resulted -hypertrigliceridemia -continue crestor Psychiatry -Dr. Ortega increased Depakote. -VPA level to be reassessed on 07/21/16.
--- NOTE | 2016-07-19 20:16 | Neuropsych Progress Note ---
[facility] Subjective Date: 07/19/16 - Sujective/Severity of Illness Medications: Amlodipine Besylate (Norvasc) 10 mg PO DAILY [facility] Last Admin: 07/19/16 08:48 Dose: 10 mg Apixaban (Eliquis) 5 mg PO BID [facility] Last Admin: 07/19/16 08:48 Dose: 5 mg Aspirin (Asa) 81 mg PO DAILY [facility] Last Admin: 07/19/16 08:48 Dose: 81 mg Divalproex Sodium (Depakote) 500 mg PO [facility] Last Admin: 07/18/16 20:05 Dose: 500 mg Divalproex Sodium (Depakote) 250 mg PO DAILY [facility] Last Admin: 07/19/16 08:48 Dose: 250 mg Lisinopril/HCTZ (Prinzide ) 1 tab PO DAILY [facility] Haloperidol (Haldol) 0.5 mg PO Q6H PRN PRN Reason: Extreme agitation Last Admin: 07/15/16 14:42 Dose: 0.5 mg Haloperidol Lactate (Haldol) 0.5 mg IM Q6H PRN PRN Reason: Extreme agitation Lorazepam (Ativan) 0.5 mg PO Q6H PRN PRN Reason: Extreme agitation Last Admin: 07/15/16 14:42 Dose: 0.5 mg Lorazepam (Ativan Inj) 0.5 mg IM Q6H PRN PRN Reason: Extreme agitation Rosuvastatin Calcium (Crestor) 5 mg PO [facility] Last Admin: 07/18/16 20:05 Dose: 5 mg Tamsulosin HCl (Flomax) 0.4 mg PO DAILY [facility] Last Admin: 07/19/16 08:48 Dose: 0.4 mg Trazodone HCl (Desyrel) 50 mg PO [facility] Last Admin: 07/18/16 20:05 Dose: 50 mg Subjective: Pt. seen. Chart reviewed. Case discussed w RN and multi-disc team. They report Abdon has remained pleasant and cooperative with them today. Has been compliant w the medications. Required no PRN doses for behavioral control or any agitation. His appetite has been good and he's sleeping fairly well. He slept 6.25 hours last night they report. ELLEN informs me that they learned he had an evaluation at [facility] in recent past at which time they advised he not drive. SW reports she has advised sister and I discussed that with him today as well. Although he was not happy with that information, he expressed he was made aware of that early today and seemed to understand, but disagree. Start Time: 16:00 Stop Time: 16:15 Mental Status Exam Vitals: Last Vital Signs Temp 98.0 F 07/19/16 16:00 Pulse 73 07/19/16 16:00 Resp 16 07/19/16 16:00 BP 152/71 H 07/19/16 16:00 Pulse Ox 95 07/19/16 16:00 Height: 5 ft 6 in Weight: 101 kg - Mental Status Exam Muscle Strength/Tone: Normal Dressing: Casual Grooming: Fair Attitude: Cooperative, Defensive (about the rec to no longer drive) Motor Activity: Normal Eye Contact: Good Speech: Normal Volume: Normal Rhythm: Appropriate Rhythm Orientation: Oriented to person, Oriented to place, Oriented to time Mood: Neutral Rate of Thoughts: Delayed Thought Organization: Organized (to some extent) Associations: Illogical Abstract Reasoning: Poor abstract reasoning Thought Content: Other (Frustration with rec to not drive) Perception/Psychotic: Perception Normal Language: Naming Intact Fund of Knowledge: Poor fund of knowledge Memory: Poor-recent Suicidal Ideation: Denies Homicidal Ideation: Denies Insight: Limited Judgement: Limited Impulse Control: Fair - Laboratory Result Diagrams: 07/15/16 18:12 07/19/16 06:08 Laboratory Results - last 24 hr 07/15/16 07/19/16 04:48 06:08 Turbidity < 20.0 Sodium 145 H Potassium 4.4 Chloride 104 Carbon Dioxide 30 Anion Gap 11 BUN 25.0 H Creatinine 0.9 GFR Calculation 84 BUN/Creatinine Ratio 28 H Glucose 80 Calculated Osmolality 282 H Calcium 8.8 Icterus Index < 2.0 Triglycerides 169 H Cholesterol 125 L LDL Cholesterol, Calc 65.2 L VLDL Cholesterol 33.8 H HDL Cholesterol 26 L Cholesterol/HDL Ratio 4.8 Specimen Hemolysis < 15.0 Assessment and Plan (1) Bipolar disorder Qualifiers: Active/Remission status: currently active Current bipolar episode type: hypomanic Qualified Code(s): F31.0 - Bipolar disorder, current episode hypomanic Current visit: Yes Status: Chronic 07.19.16: Continue Depakote. Advised regarding no driving. VPA level scheduled for 07.21.16.
[2016-07-19] MEDS: TRAZODONE 50 MG TABLET PO SCH (20:25)
[2016-07-19] MEDS: ROSUVASTATIN 10 MG TABLET PO SCH (20:25)
[2016-07-19] MEDS: DIVALPROEX 500 MG TABLET PO SCH (20:25)
[2016-07-20] MEDS: ASPIRIN 81 MG CHEWABLE TABLET PO SCH ×2 (07:47→10:10)
[2016-07-20] MEDS: APIXABAN 5 MG TABLET PO SCH ×3 (07:48→20:46)
[2016-07-20] MEDS: AMLODIPINE 10 MG TABLET PO SCH ×2 (07:48→10:11)
[2016-07-20] MEDS: DIVALPROEX 250 MG TABLET PO SCH ×2 (07:48→10:09)
[2016-07-20] MEDS: TAMSULOSIN 0.4 MG CAPSULE PO SCH ×2 (07:48→10:11)
[2016-07-20] MEDS: LISINOPRIL/HCTZ 20/12.5 MG TABLET PO SCH (10:05)
--- NOTE | 2016-07-20 14:09 | Neuropsych Progress Note ---
[facility] Subjective Date: 07/20/16 - Sujective/Severity of Illness Medications: Amlodipine Besylate (Norvasc) 10 mg PO DAILY [facility] Last Admin: 07/20/16 10:11 Dose: Not Given Apixaban (Eliquis) 5 mg PO BID [facility] Last Admin: 07/20/16 10:10 Dose: Not Given Aspirin (Asa) 81 mg PO DAILY [facility] Last Admin: 07/20/16 10:10 Dose: Not Given Divalproex Sodium (Depakote) 500 mg PO [facility] Last Admin: 07/19/16 20:25 Dose: 500 mg Divalproex Sodium (Depakote) 250 mg PO DAILY [facility] Last Admin: 07/20/16 10:09 Dose: Not Given Lisinopril/HCTZ (Prinzide 26/01.) 1 tab PO DAILY [facility] Last Admin: 07/20/16 10:05 Dose: 1 tab Haloperidol (Haldol) 0.5 mg PO Q6H PRN PRN Reason: Extreme agitation Last Admin: 07/15/16 14:42 Dose: 0.5 mg Haloperidol Lactate (Haldol) 0.5 mg IM Q6H PRN PRN Reason: Extreme agitation Lorazepam (Ativan) 0.5 mg PO Q6H PRN PRN Reason: Extreme agitation Last Admin: 07/15/16 14:42 Dose: 0.5 mg Lorazepam (Ativan Inj) 0.5 mg IM Q6H PRN PRN Reason: Extreme agitation Rosuvastatin Calcium (Crestor) 5 mg PO [facility] Last Admin: 07/19/16 20:25 Dose: 5 mg Tamsulosin HCl (Flomax) 0.4 mg PO DAILY [facility] Last Admin: 07/20/16 10:11 Dose: Not Given Trazodone HCl (Desyrel) 50 mg PO [facility] Last Admin: 07/19/16 20:25 Dose: 50 mg Subjective: pt. seen, chart reviewed. case discussed w rn and director community center. pt remains pleasant and cooperative. he remains upset that he has been instructed not to drive and doesn't agree with that instruction. reviewed again with him that this is also based on recent evaluation done at [facility]. his mood here remains pleasant, otherwise content, and cooperative. he slept well, 7 hours, appetite good. they report no behavioral problems or need for prn meds. taking meds compliantly and tolerating the increase of depakote well thus far. Start Time: 07:00 Stop Time: 07:15 Mental Status Exam Vitals: Last Vital Signs Temp 97.6 F 07/20/16 08:00 Pulse 63 07/20/16 08:00 Resp 18 07/20/16 08:00 BP 151/73 H 07/20/16 08:00 Pulse Ox 95 07/19/16 20:00 Height: 5 ft 6 in Weight: 101 kg - Mental Status Exam Muscle Strength/Tone: Normal Dressing: Casual Grooming: Fair Attitude: Cooperative, Defensive (about the rec to no longer drive) Motor Activity: Normal Eye Contact: Good Speech: Normal Volume: Normal Rhythm: Appropriate Rhythm Orientation: Oriented to person, Oriented to place, Oriented to time Mood: Neutral Rate of Thoughts: Delayed Thought Organization: Organized (fairly) Associations: Illogical Abstract Reasoning: Poor abstract reasoning Thought Content: Other (Frustration with rec to not drive) Perception/Psychotic: Perception Normal Language: Naming Intact Fund of Knowledge: Poor fund of knowledge Memory: Poor-recent Suicidal Ideation: Denies Homicidal Ideation: Denies Insight: Limited Judgement: Limited Impulse Control: Fair - Laboratory Result Diagrams: 07/15/16 18:12 07/19/16 06:08 Assessment and Plan (1) Bipolar disorder Qualifiers: Active/Remission status: currently active Current bipolar episode type: hypomanic Qualified Code(s): F31.0 - Bipolar disorder, current episode hypomanic Current visit: Yes Status: Chronic continue depakote. check vpa level in am. reminded him of instruction not to drive and discussed that w him again. can likely dc home w sister soon if she is ready for him.
[2016-07-20] MEDS: TRAZODONE 50 MG TABLET PO SCH (20:59)
[2016-07-20] MEDS: DIVALPROEX 500 MG TABLET PO SCH (20:59)
[2016-07-20] MEDS: ROSUVASTATIN 10 MG TABLET PO SCH (20:59)
[2016-07-21] MEDS: LISINOPRIL/HCTZ 20/12.5 MG TABLET PO SCH (08:07)
[2016-07-21] MEDS: APIXABAN 5 MG TABLET PO SCH ×2 (08:08→21:20)
[2016-07-21] MEDS: AMLODIPINE 10 MG TABLET PO SCH (08:08)
[2016-07-21] MEDS: ASPIRIN 81 MG CHEWABLE TABLET PO SCH (08:08)
[2016-07-21] MEDS: DIVALPROEX 250 MG TABLET PO SCH (08:08)
[2016-07-21] MEDS: TAMSULOSIN 0.4 MG CAPSULE PO SCH (08:08)
--- NOTE | 2016-07-21 10:16 | Discharge Summary ---
Hospital Course Hospital course: Medical problems during [facility] stay: Hypernatremia - encourage oral fluid intake. Improved. Mild normoctic anemia CAD, PAF, and hx of CABG - Continue home meds including Eliquis. Dr. Watkins is his grouter helper - f/u as needed. Will follow through [facility] following [facility] discharge. Discharge Plan - Med Rec/Dispo Referrals/Follow Up: Reid Victoria DO [Physician] - 1 Week (Mental Health follow-up on 07/26/16 at 3:00 pm. Leilani Go [address] [place] [address]. .) New De La Cruz DO [Family Provider] - 1 Week ([facility]osp. follow[facility] 07/29/16 at 11 :[facility] [address]. .) Additional Instructions: IN CASE OF PSYCHIATRIC EMERGENCY, CONTACT [facility] STAFF AT [phone] ( AVAILABLE 24 HRS DAILY.) Prescriptions: Continue Amlodipine Besylate [Norvasc] 10 mg PO DAILY #0 Lisinopril/Hydrochlorothiazide [Lisinopril-Hctz 20-12.5 mg Tab] 1 tab PO DAILY #0 tab Gabapentin 1 cap PO HS #0 cap Apixaban [Eliquis] 1 tab PO BID #60 Cyanocobalamin (Vitamin B-12) [Vitamin B-12] 1 tab PO DAILY #30 tab Vit E/Cu/Donna/Zinc/Pygeum/Saw P [Prostamen Softgel] #0 Cod Liver Oil 1 cap PO DAILY #0 Tamsulosin HCl 0.4 mg PO DAILY #0 Rosuvastatin [Crestor] 10 mg PO HS #0 Garlic #0 Discontinued diphenhydrAMINE HCl [Benadryl] 2 cap PO HS #30 cap No Action Escitalopram Oxalate 10 mg PO DAILY #0 Donepezil HCl [Aricept] 5 mg PO HS 30 Days Trazodone HCl 50 mg PO HS #0 tab - Disposition 01 Discharged Home, Self-Care
--- NOTE | 2016-07-21 11:03 | Progress Note ---
Subjective: Abdon was sitting in the dayroom. 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 Otherwise he has been doing well. No chest pain or dyspnea, abd pain or GI complaints. He is planning on going home to live with his sister today. Objective Vital signs: Temp Pulse Resp BP Pulse Ox 97.4 F 91 16 131/67 94 07/21/16 07:44 07/21/16 07:44 07/21/16 07:44 07/21/16 07:44 07/21/16 07:44 Weight: 103.6 kg - Constitutional Present: no acute distress, well nourished, well developed, obese - Routine HEENT Exam ENT: Present: mucous membranes moist, oropharynx clear - Routine Respiratory Exam Present: CTA bilaterally - Routine Cardiovascular Exam Present: S1, S2 - Routine Abdominal Exam Present: soft, non distended, non tender - Routine Extremities Exam Present: no edema, pulses intact, normal capillary refill - Routine Musculoskeletal Exam Musculoskeletal: no clubbing or cyanosis - Routine Skin Exam Present: intact, dry, warm - Routine Neurological Exam Present: alert, oriented X3 - Routine Psychiatric Exam Present: normal affect, normal thought process Results - Labs CBC & Chem 7: 07/15/16 18:12 07/19/16 06:08 Assessment and Plan (1) Major neurocognitive disorder, due to Alzheimer's disease, with behavioral disturbance, mild Current visit: Yes Status: Acute (2) PAF (paroxysmal atrial fibrillation) Current visit: Yes Status: Chronic (3) CAD (coronary artery disease) Current visit: Yes Status: Chronic (4) HTN (hypertension) Current visit: Yes Status: Chronic (5) Hyperlipidemia Current visit: Yes Status: Chronic (6) Obesity (BMI 30-39.9) Current visit: Yes Status: Chronic (7) Chronic back pain Current visit: Yes Status: Chronic (8) Depression Current visit: Yes Status: Deleted (9) Acute hypernatremia Problem details: Due to vascular changes and frontotemporal disease Current visit: Yes Status: Acute (10) Normocytic anemia Current visit: Yes Status: Chronic Assessment and Plan: Medically stable for discharge meds reviewed and updated for discharge f/u with Dr De La Cruz in 1 week will follow in [facility] as well - pt agreeable. Sepsis Assessment - Evaluation Sepsis screening result: No Definite Risk - Focused Exam Vital Signs Temp Pulse Resp BP Pulse Ox 07/21/16 07:44 97.4 F 91 16 131/67 94 Respiratory exam: Present: CTA bilaterally Cardiovascular exam: Present: S1, S2 Capillary refill: < 2-3 Seconds Hospital Course Summary Disclaimer: The visit summary below is not to be considered part of the above Progress Note. Hospital Course: Medical problems during [facility] stay: Hypernatremia - encourage oral fluid intake. Improved. Mild normoctic anemia CAD, PAF, and hx of CABG - Continue home meds including Eliquis. Dr. Watkins is his access analyst - f/u as needed. Will follow through [facility] following [facility] discharge.
[2016-07-21] MEDS: ROSUVASTATIN 10 MG TABLET PO SCH (21:19)
[2016-07-21] MEDS: TRAZODONE 50 MG TABLET PO SCH (21:20)
[2016-07-21] MEDS: DIVALPROEX 500 MG TABLET PO SCH (21:20)
--- NOTE | 2016-07-21 21:33 | Neuropsych Progress Note ---
[facility] Subjective Date: 07/22/16 - Sujective/Severity of Illness Medications: Amlodipine Besylate (Norvasc) 10 mg PO DAILY [facility] Last Admin: 07/21/16 08:08 Dose: 10 mg Apixaban (Eliquis) 5 mg PO BID [facility] Last Admin: 07/21/16 21:20 Dose: 5 mg Aspirin (Asa) 81 mg PO DAILY [facility] Last Admin: 07/21/16 08:08 Dose: 81 mg Divalproex Sodium (Depakote) 500 mg PO [facility] Last Admin: 07/21/16 21:20 Dose: 500 mg Divalproex Sodium (Depakote) 250 mg PO DAILY [facility] Last Admin: 07/21/16 08:08 Dose: 250 mg Lisinopril/HCTZ (Prinzide 20/12.5) 1 tab PO DAILY [facility] Last Admin: 07/21/16 08:07 Dose: 1 tab Haloperidol (Haldol) 0.5 mg PO Q6H PRN PRN Reason: Extreme agitation Last Admin: 07/15/16 14:42 Dose: 0.5 mg Haloperidol Lactate (Haldol) 0.5 mg IM Q6H PRN PRN Reason: Extreme agitation Lorazepam (Ativan) 0.5 mg PO Q6H PRN PRN Reason: Extreme agitation Last Admin: 07/15/16 14:42 Dose: 0.5 mg Lorazepam (Ativan Inj) 0.5 mg IM Q6H PRN PRN Reason: Extreme agitation Rosuvastatin Calcium (Crestor) 5 mg PO [facility] Last Admin: 07/21/16 21:19 Dose: 5 mg Tamsulosin HCl (Flomax) 0.4 mg PO DAILY [facility] Last Admin: 07/21/16 08:08 Dose: 0.4 mg Trazodone HCl (Desyrel) 50 mg PO [facility] Last Admin: 07/21/16 21:20 Dose: 50 mg Subjective: Patient seen and chart reviewed. Case discussed with treatment team. On interview, patient is calm and cooperative. He states that his mood is good. He is frustrated with the recommendation that he not drive, but states that he plans to try to get a DL in [place] the legal way. He states that he will not drive illegally in [place] despite his frustration. His sister has stated that she will remove his vehicles, keys, etc. from the property as well. Patient reports that he is doing well otherwise and denies any complaints. Patient denies any SI, HI or AVH. Patient denies any adverse side effects related to psychotropic medications. Nursing staff report patient has been calm and cooperative overall, without behavioral difficulties on the unit. Patient slept 7 hours overnight. VSS. Patient is eating well. Trough VPA level 60.5 this AM. Psychotropic PRNs required in the past 24 hours: none. Start Time: 16:00 Stop Time: 16:20 Mental Status Exam Vitals: Last Vital Signs Temp 97.2 F 07/21/16 20:00 Pulse 62 07/21/16 20:00 Resp 16 07/21/16 20:00 BP 116/56 07/21/16 20:00 Pulse Ox 91 07/21/16 20:00 Height: 1.68 m Weight: 103.6 kg - Mental Status Exam Muscle Strength/Tone: Normal Dressing: Casual Grooming: Fair Attitude: Cooperative, Defensive (about the rec to no longer drive) Motor Activity: Normal Eye Contact: Good Speech: Normal Volume: Normal Rhythm: Appropriate Rhythm Orientation: Oriented to person, Oriented to place, Oriented to time Mood: Euthymic Rate of Thoughts: Delayed Thought Organization: Organized (fairly) Associations: Illogical Abstract Reasoning: Poor abstract reasoning Thought Content: Other (Frustration with rec to not drive) Perception/Psychotic: Perception Normal Language: Naming Intact Fund of Knowledge: Poor fund of knowledge Memory: Poor-recent Suicidal Ideation: Denies Homicidal Ideation: Denies Insight: Limited Judgement: Limited Impulse Control: Fair - Laboratory Result Diagrams: 07/15/16 18:12 07/19/16 06:08 Laboratory Results - last 24 hr 07/16/16 07/21/16 Unknown 04:30 Stl Cyclospora species Cancelled Stool Rotavirus A PCR Cancelled Stool Adenovirus (PCR) Cancelled Stool Astrovirus (PCR) Cancelled Stool Campylobacter PCR Cancelled Stl C.difficile Tox PCR Cancelled Stool Cryptosporidium PCR Cancelled Stl E.coli Shiga Toxins Cancelled Stool E coli O157 PCR Cancelled Stl Enterotoxigenic E PCR Cancelled Stool EPEC (PCR) Cancelled Stool EAEC (PCR) Cancelled Stool Entamoeba (PCR) Cancelled Stool Giardia Lamblia PCR Cancelled Stool Salmonella PCR Cancelled Stool Sapovirus (PCR) Cancelled Stl P. shigelloides PCR Cancelled Stl Shigella/EIEC PCR Cancelled St Y.enterocolitica PCR Cancelled Stool Vibrio (PCR) Cancelled Stl Vibrio cholera PCR Cancelled Stl Norovirus GI/GII PCR Cancelled Valproic Acid 60.5 Assessment and Plan (1) Bipolar disorder Qualifiers: Active/Remission status: currently active Current bipolar episode type: hypomanic Qualified Code(s): F31.0 - Bipolar disorder, current episode hypomanic Status: Chronic (2) Major 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 Status: Chronic (3) Acute hypernatremia Problem details: Due to vascular changes and frontotemporal disease Status: Acute (4) CAD (coronary artery disease) Status: Chronic (5) Chronic back pain Status: Chronic (6) HTN (hypertension) Status: Chronic (7) Hyperlipidemia Status: Chronic (8) Normocytic anemia Status: Chronic (9) Obesity (BMI 30-39.9) Status: Chronic (10) PAF (paroxysmal atrial fibrillation) Status: Chronic Discharge to home with sister/DPOA tomorrow. Have discussed with patient on multiple occasions that he should not be driving and plan to send notification to [place] DMV as well. He states he will not attempt to drive illegally in this state. Sister plans to remove access to his vehicles, keys prior to discharge. Safety recommendations discussed as well such as no access to guns/weapons or medications, Rx or OTC. Patient will f/u with established provider at , Dr. Victoria.
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
[2016-07-22] MEDS: AMLODIPINE 10 MG TABLET PO SCH (08:06)
[2016-07-22] MEDS: APIXABAN 5 MG TABLET PO SCH (08:06)
[2016-07-22] MEDS: LISINOPRIL/HCTZ 20/12.5 MG TABLET PO SCH (08:06)
[2016-07-22] MEDS: ASPIRIN 81 MG CHEWABLE TABLET PO SCH (08:07)
[2016-07-22] MEDS: DIVALPROEX 250 MG TABLET PO SCH (08:07)
[2016-07-22] MEDS: TAMSULOSIN 0.4 MG CAPSULE PO SCH (08:07)
--- NOTE | 2016-07-22 08:31 | Discharge Summary ---
Discharge Plan - Med Rec/Dispo Referrals/Follow Up: Reid Victoria DO [Physician] - 1 Week (Mental Health follow-up on 07/26/16 at 3:00 pm. [place] [address]. .) New De La Cruz DO [Family Provider] - 1 Week (Hosp. follow-up on 07/29/16 at 11 :15 am. [facility] [address] [place] [address]. .) Additional Instructions: IN CASE OF PSYCHIATRIC EMERGENCY, CONTACT [facility] STAFF AT [phone] ( AVAILABLE 24 HRS DAILY.) Prescriptions: New Trazodone [Desyrel] 50 mg PO HS #30 Divalproex [Depakote] 250 mg PO DAILY #30 Divalproex [Depakote] 500 mg PO HS #30 Continue Amlodipine Besylate [Norvasc] 10 mg PO DAILY #0 Lisinopril/Hydrochlorothiazide [Lisinopril-Hctz 20-12.5 mg Tab] 1 tab PO DAILY #0 tab Gabapentin 1 cap PO HS #0 cap Apixaban [Eliquis] 1 tab PO BID #60 Cyanocobalamin (Vitamin B-12) [Vitamin B-12] 1 tab PO DAILY #30 tab Vit E/Cu/Donna/Zinc/Pygeum/Saw P [Prostamen Softgel] #0 Cod Liver Oil 1 cap PO DAILY #0 Tamsulosin HCl 0.4 mg PO DAILY #0 Rosuvastatin [Crestor] 10 mg PO HS #0 Garlic #0 Trazodone HCl 50 mg PO HS #0 tab Discontinued Escitalopram Oxalate 10 mg PO DAILY #0 Donepezil HCl [Aricept] 5 mg PO HS 30 Days diphenhydrAMINE HCl [Benadryl] 2 cap PO HS #30 cap - Disposition 01 Discharged Home, Self-Care
--- NOTE | 2016-07-23 14:31 | Right on Track Program ---
Right on Track Program Date of Discharge: 07/22/16 Home Medications: Home Medications Medication Instructions Recorded Confirmed Amlodipine Besylate [Norvasc] 10 mg PO DAILY #0 06/19/14 07/13/16 Lisinopril/Hydrochlorothiazide 1 tab PO DAILY #0 tab 06/19/14 07/13/16 [Lisinopril-Hctz 20-12.5 mg Tab] Cod Liver Oil 1 cap PO DAILY #0 08/22/14 Rosuvastatin [Crestor] 10 mg PO HS #0 09/15/15 07/13/16 Tamsulosin HCl 0.4 mg PO DAILY #0 09/15/15 07/13/16 Apixaban [Eliquis] 1 tab PO BID #60 12/09/15 07/13/16 Gabapentin 1 cap PO HS #0 cap 12/09/15 07/13/16 Cyanocobalamin (Vitamin B-12) 1 tab PO DAILY #30 tab 12/10/15 [Vitamin B-12] Garlic #0 12/10/15 Trazodone HCl 50 mg PO HS #0 tab 12/10/15 07/13/16 Vit E/Cu/Donna/Zinc/Pygeum/Saw P #0 12/10/15 [Prostamen Softgel] Previous Rx's Medication Instructions Recorded Divalproex [Depakote] 250 mg PO DAILY #30 07/22/16 Divalproex [Depakote] 500 mg PO HS #30 07/22/16 Trazodone [Desyrel] 50 mg PO HS #30 07/22/16 - Right on Track Program Phone call Date: 07/28/16 Right on Track Program: 24 Hour Follow-Up Discharge Summary Received: Yes Care Plan Received: Yes Follow Up: Follow Up Appointment Scheduled (Reid Victorai DO [Physician] - 1 Week (Mental Health follow-up on 07/26/16 at 3:00 pm. [facility] [place] [address]. .)) Education: Diagnosis Education Reviewed, Education Provided To Caregiver Community Paramedicine Fall Intervention: No Referral: Social Work, Primary Care Physician, Other (Dr. Victoria) Comments: I called Abdon on 07/23/16. His sister, Chey, is out of town, but I did speak with her. She had a question on whether or not he could resume Melatonin, which wasn't listed on his medications. She states that he didn't sleep well last. I told her that is ok to resume that medication, and added that I would avoid Benadryl - but she quickly added that he hasn't used Benadryl for quite some time b/c Dr. Victoria told them to start Melatonin instead of Benadryl. He has appts with Dr. Victoria on 07/[address] De La Cruz on 07/29. A nurse from [facility] is also planning on seeing him on the . I also spoke with Ludwig Malagon, a friend who watches over Abdon when Chey is unavailable. He states Abdon's been watching television and has had a fairly decent day. He hasn't spoke about not being able to drive but thinks that's bothering him. He didn't have any questions on meds/Rx and will be picking up Rx for Depakote from tomorrow am. I will fax the DC summary to Dr. Victoria and Dr. De La Cruz. Discussed With Patient and Caregiver: Yes Recommendations For Follow-up: 1. F/U with Dr. Victoria and Dr. De La Cruz, as planned 2. Continue to follow through [facility] - home visit planned for 08/04/16 Phone call #2 Date: 07/28/16 Comments: I spoke with Chey, Abdon's sister, on 07/28/16. She stated that Abdon saw Dr. Victoria on the , and she stated that Dr. Victoria had questions on the bipolar diagnoses with the new Rx for Depakote and wanted clarification on why Aricept and the antidepressant were discontinued. (After I hung up with Chey, I spoke to Donny Bolaños in [place], and he will arrange for communication with psychiatry and with Chey to discuss this in more detail.) Chey also states that Abdon is quite upset about not being able to drive and has called the apartment house manager to make an extra set of keys for him (which are locked up) - the apartment house manager knew the situation so contacted Chey and did not make the keys. Otherwise, physically , he seems to be doing well. Discussed With Patient and Caregiver: Yes Recommendations For Follow-up: 1. F/U with Dr. De La Cruz as planned on 07/29/16 2. Discussed diagnoses and medication changes with Donny, who will make further phone calls and provide clarification for Chey 3. Home visit planned for 08/04/16 - Problems (1) Major neurocognitive disorder, due to Alzheimer's disease, with behavioral disturbance, mild Code(s): G30.9 - Alzheimer's disease, unspecified; F02.81 - Dementia in other diseases classified elsewhere with behavioral disturbance Status: Acute (2) PAF (paroxysmal atrial fibrillation) Code(s): I48.0 - Paroxysmal atrial fibrillation Status: Chronic (3) CAD (coronary artery disease) Code(s): I25.10 - Atherosclerotic heart disease of [place] coronary artery without angina pectoris Status: Chronic (4) HTN (hypertension) Code(s): I10 - Essential (primary) hypertension Status: Chronic (5) Hyperlipidemia Code(s): E78.5 - Hyperlipidemia, unspecified Status: Chronic (6) Obesity (BMI 30-39.9) Code(s): E66.9 - Obesity, unspecified Status: Chronic (7) Chronic back pain Code(s): M54.9 - Dorsalgia, unspecified; G89.29 - Other chronic pain Status: Chronic (8) Acute hypernatremia Code(s): E87.0 - Hyperosmolality and hypernatremia Status: Acute (9) Normocytic anemia Code(s): D64.9 - Anemia, unspecified Status: Chronic
== END 2016-07-22 08:42 | disposition home or self-care (01) | DRG 885 ==
LOC: ED 23:03 → GEN 07-13 01:23
PROVIDERS: ADMIT Psychiatry & Neurology Psychiatry; ATTEND Psychiatry & Neurology Psychiatry

== ENCOUNTER 2017-01-10 08:58 | Observation (INO) ==
[2017-01-10] MEDS ORDERED: KETOROLAC 15 MG/ML INJECTION IVP ONE (09:27)
[2017-01-10] MEDS ORDERED: ONDANSETRON 4 MG/2 ML INJECTION IVP ONE (09:27)
--- OUTSIDE RECORDS SUMMARY | 2017-01-10 09:33 | External Medical Summary ---
:1945 Author Organization [employer] Care Team Providers Name Role Phone New De La Cruz Provider Role Unavailable Allergies, Adverse Reactions, Alerts Substance Reaction Event Type N.K.D.A. Info Not Available Non Drug Allergy Problems Problem Type Condition Code Onset Dates Condition Status Assessment Anemia, unspecified D64.9 Active Assessment Impotence of organic origin 607.84 Active Problem Impotence of organic origin 607.84 Active Assessment Enlarged prostate with lower urinary N40.1 Active tract symptoms Assessment Essential (primary) hypertension I10 Active Assessment Hyperlipidemia, unspecified E78.5 Active Medications Medication Code Code Instructions Start End Status Dosage System Date Date Melatonin [facility] [address]-70 3 MG Orally 1 tablet at Once a day bedtime as needed with food Tamsulosin HCl [facility] 99544648327 0.4MG TAKE ONE CAPSULE BY MOUTH ONCE DAILY 30 MINUTES AFTER THE SAME MEAL EACH DAY. Viagra [facility] [address]-29 25 MG Orally May 1 tablet as Once a day , needed before 2016 sexual intercourse Escitalopram [facility] [address]-03 10 MG Orally 1 tablet Oxalate Once a day Garlic [facility] [address]11 1000 MG Orally not defined Crestor [facility] 38519157918 10MG Orally 10 mg Once a day Lisinopril-Hydr [facility] [address]-64 20-12.5 MG 1 tablet ochlorothiazide Orally Once a day Vitamin B 12 [facility] [address] 250 MCG Orally not defined Trazodone HCl [facility] [address]-48 50 MG Orally 1 tablet at Once a day bedtime Aspirin [facility] [address]34 81 MG Orally 1 tablet Once a day Amlodipine [facility] [address]-76 10 MG Orally 1 tablet Besylate Once a day Cod Liver Oil [facility] [address]-13 Orally not defined Potassimin [facility] [address]-83 75 MG Orally 1 tablet Once a day Procedures Procedure Coding System Code Date OFFICE VISIT, EST-MOD. COMPLEXITY (25 MIN) CPT-4 11226 May 22, 2015 [facility] visit Established Patient CPT-4 G0467 May 22, 2015 Vital Signs Date/Time: May 22, 2015 BMI 37.07 Index Height 65 in Weight 222.8 lbs Respiratory Rate 16 /min Blood Pressure Diastolic 80 mm Hg Blood Pressure Systolic 116 mm Hg Cardiac Monitoring Heart Rate 81 /min Oximetry 97 % Results No Known Results Summary Purpose eClinicalWorks Submission
--- OUTSIDE RECORDS SUMMARY | 2017-01-10 09:33 | External Medical Summary ---
:1945 [facility] [place] Care Team Providers Name Role Phone New De La Cruz Provider Role Unavailable Allergies, Adverse Reactions, Alerts Substance Reaction Event Type N.K.D.A. Info Not Available Non Drug Allergy Problems Problem Type Condition ICD-9 Code Onset Dates Condition Status Assessment Rotator cuff (capsule) sprain 840.4 Active and strain Assessment Pain in joint, shoulder region 719.41 Active Assessment Cervicalgia 723.1 Active Medications Medication Code Code Instructions Start End Date Status Dosage System Date Amlodipine [facility] 89203-40 10 MG Orally 1 tablet Besylate 02-20 Once a day Escitalopram [facility] 79250-02 10 MG Orally 1 tablet Oxalate 51-01 Once a day Garlic [facility] 66577-97 1000 MG Orally not defined 533 Potassimin [facility] 77195-07 75 MG Orally 1 tablet 43-01 Once a day Tamsulosin HCl [facility] 46577-36 0.4 MG Orally Jan 08, 1 capsule 38-01 Once a day 2014 30 minutes after the same meal each day Crestor [facility] 64720-46 10 MG Orally 10 mg in 51-39 Once a day the morning and 5 [place] [address]-35 Orally not defined 46-01 Melatonin [facility] 10548-21 3 MG Orally Once 1 tablet at 12-08 a day bedtime as needed with food Vitamin B 12 [facility] 69864-63 250 MCG Orally not defined 581 Trazodone HCl [facility] 48415-47 50 MG Orally 1 tablet at 37-01 Once a day bedtime Lisinopril-[place] [facility] 39013-35 20-12.5 MG 1 tablet chlorothiazide 36-01 Orally Once a day Procedures Procedure Coding System Code Date OFFICE VISIT, EST-LOW COMPLEXITY (15 MIN.) CPT-4 02244 August 30, 2014 [facility] visit Established Patient CPT-4 G0467 August 30, 2014 Vital Signs Date/Time: August 30, 2014 Height 65 in Weight 204 lbs Temperature 97.8 F Blood Pressure Diastolic 76 mm Hg Blood Pressure Systolic 128 mm Hg Cardiac Monitoring Heart Rate 78 /min BMI 33.94 Index Oximetry 98 % Respiratory Rate 16 /min Results No Known Results Summary Purpose eClinicalWorks Submission
--- OUTSIDE RECORDS SUMMARY | 2017-01-10 09:33 | External Medical Summary | Continuity of Care Document ---
:1945 Author Organization [facility] Care Team Providers Name Role Phone [employer] Unavailable Unavailable Family History Value Date Source Advance Directives Order Name Results Value Date Source
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
--- OUTSIDE RECORDS SUMMARY | 2017-01-10 09:34 | External Medical Summary ---
:1945 Author Organization eClinicalWorks Care Team Providers Name Role Phone Elsi Luna Provider Role Unavailable Allergies No Known Allergies Problems No Known Problems Medications Medication Code System Code Instructions Start Date End Date Status Dosage Cephalexin [facility] [address] 500 MG Orally TID June 13, June 27, 1 tablet -2014 Results No Known Results Summary Purpose [email or web address] Submission
--- OUTSIDE RECORDS SUMMARY | 2017-01-10 09:34 | External Medical Summary ---
:1945 Author Organization eClinicalWorks Care Team Providers Name Role Phone New De La Cruz Provider Role Unavailable Allergies No Known Allergies Problems No Known Problems Medications No Known Medications Results No Known Results Summary Purpose eClinicalWorks Submission
--- OUTSIDE RECORDS SUMMARY | 2017-01-10 09:34 | External Medical Summary ---
:1945 Author Organization [employer]ClinicalWorks Care Team Providers Name Role Phone New De La Cruz Provider Role Unavailable Allergies No Known Allergies Problems Problem Type Condition Code Onset Dates Condition Status Problem Essential (primary) hypertension I10 Active Problem Major depressive disorder, single F32.9 Active episode, unspecified Problem Transient cerebral ischemic attack, G45.9 Active unspecified Problem Impotence of organic origin 607.84 Active Problem Other male erectile dysfunction N52.8 Active Medications No Known Medications Results No Known Results Summary Purpose eClinicalWorks Submission
--- OUTSIDE RECORDS SUMMARY | 2017-01-10 09:34 | External Medical Summary ---
:1945 Author Organization [employer]ClinicalWorks Care Team Providers Name Role Phone New De La Cruz Provider Role Unavailable Allergies, Adverse Reactions, Alerts Substance Reaction Event Type N.K.D.A. 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 Problem Major depressive disorder, single F32.9 Active episode, unspecified Problem Impotence of organic origin 607.84 Active Problem Transient cerebral ischemic G45.9 Active attack, unspecified Problem Essential (primary) hypertension I10 Active Assessment Localized swelling, mass and lump, R22.42 Active left lower limb Assessment Venous insufficiency (chronic) I87.2 Active (peripheral) Assessment Localized swelling, mass and lump, R22.41 Active right lower limb Assessment Encounter for immunization Z23 Active Assessment Low back pain M54.5 Active Assessment Fall on same level, unspecified, W18.30XA Active initial encounter Assessment Anemia, unspecified D64.9 Active Assessment Chest pain, unspecified R07.9 Active Assessment Essential (primary) hypertension I10 Active Medications Medication Code Code Instructions Start End Status Dosage System Date Date Aspirin [facility] [address]-04465 81 MG Orally 1 tablet Once a day Crestor [facility] [address]-24 5 MG Orally Nov 04, 1 tablet Once a day HS 2016 Gabapentin [facility] [address]-58 300 MG Orally 1 capsule at HS Aricept [facility] [address]-78 10 MG Orally Nov 04, 1 tablet Once a day 2016 at bedtime Escitalopram [facility] [address]-20 20 MG Orally 1 tablet Oxalate Once a day Eliquis [facility] 7251-5280-59 5mg PO BID not defined Amlodipine [facility] [address]-08 10 MG Orally 1 tablet Besylate Once a day Lisinopril-Hydr [facility] [address]-81 20-12.5 MG 1 tablet ochlorothiazide Orally Once a day Trazodone HCl [facility] [address]-82 50 MG Orally 1 tablet Once a day at at bedtime bedtime Tamsulosin HCl [facility] 80504476649 0.4MG HS TAKE ONE CAPSULE BY MOUTH Procedures Procedure Coding System Code Date OFFICE VISIT, EST-LOW COMPLEXITY (15 MIN.) CPT-4 34439 Dec 19, 2015 Fluzone HIGH DOSE (age 65 and older) CPT-4 45268 Dec 19, 2015 [facility] visit Established Patient CPT-4 G0467 Dec 19, 2015 ADMINISTRATION, 1ST IMMUNIZATION CPT-4 98717 Dec 19, 2015 [facility] FLU VAC NO FEE SCHED SAME DAY CPT-4 G0008 Dec 19, 2015 Vital Signs Date/Time: Dec 19, 2015 Temperature 97.7 F Height 65 in Weight 225.6 lbs Blood Pressure Diastolic 78 mm Hg Blood Pressure Systolic 124 mm Hg Cardiac Monitoring Heart Rate 96 /min BMI 37.54 Index Oximetry 96 % Respiratory Rate 16 /min Results No Known Results Immunizations Vaccine Administration Date Fluzone HIGH DOSE (age 65 and older) Dec 19, 2015 Summary Purpose eClinicalWorks Submission
--- OUTSIDE RECORDS SUMMARY | 2017-01-10 09:34 | External Medical Summary ---
:1945 Author Organization eClinicalWorks Care Team Providers Name Role Phone New De La Cruz Provider Role Unavailable Allergies, Adverse Reactions, Alerts Substance Reaction Event Type N.K.D.A. Info Not Available Non Drug Allergy Problems Problem Type Condition Code Onset Dates Condition Status Assessment Contusion of elbow 923.11 Active Assessment Abdominal or pelvic swelling, mass 789.30 Active or lump, unspecified site Assessment Pain in joint, upper arm 719.42 Active Medications Medication Code System Code Instructions Start End Date Status Dosage Date Crestor [facility] 43474-613 5 MG Orally Once 1 tablet 5-90 a day Lisinopril-Hydr [facility] 34664-865 20-12.5 MG 1 tablet ochlorothiazide 6-01 Orally Once a day Aspirin [facility] 17343-427 81 MG Orally 1 tablet 05 Once a day Amlodipine [facility] 45814-764 10 MG Orally 1/2 tablet Besylate 2-20 Once a day Procedures Procedure Coding System Code Date [facility] visit Established Patient CPT-4 G0467 May 31, 2014 OFFICE VISIT, EST-LOW COMPLEXITY (15 MIN.) CPT-4 62798 May 31, 2014 [facility] visit New Patient CPT-4 G0466 May 31, 2014 Vital Signs Date/Time: May 31, 2014 Height 65 in Weight 217.12 lbs Temperature 98.2 F Blood Pressure Diastolic 60 mm Hg Blood Pressure Systolic 128 mm Hg Cardiac Monitoring Heart Rate 68 /min BMI 36.13 Index Respiratory Rate 16 /min Results No Known Results Summary Purpose eClinicalWorks Submission
--- OUTSIDE RECORDS SUMMARY | 2017-01-10 09:34 | External Medical Summary ---
:1945 [facility] Team Providers Name Role Phone New De La Cruz Provider Role Unavailable Allergies, Adverse Reactions, Alerts Substance Reaction Event Type N.K.D.A. Info Not Available Non Drug Allergy Problems Problem Type Condition Code Onset Dates Condition Status Assessment Essential (primary) hypertension I10 Active Assessment Shortness of breath R06.02 Active Assessment Insomnia, unspecified G47.00 Active Problem Essential (primary) hypertension I10 Active Problem Major depressive disorder, single F32.9 Active episode, unspecified Problem Transient cerebral ischemic attack, G45.9 Active unspecified Assessment Transient cerebral ischemic attack, G45.9 Active unspecified Assessment Olecranon bursitis, unspecified M70.20 Active elbow Problem Impotence of organic origin 607.84 Active Assessment 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 Assessment Allergic contact dermatitis due to L23.4 Active dyes Assessment Major depressive disorder, single F32.9 Active episode, unspecified Assessment Benign prostatic hyperplasia with N40.1 Active lower urinary tract symptoms, unspecified morphology Assessment Sick sinus syndrome I49.5 Active Assessment Hyperlipidemia, unspecified E78.5 Active Medications Medication Code Code Instructions Start End Status Dosage System Date Date Cod Liver Oil [facility] [address]-04 Orally not defined Trazodone HCl [facility] [address]-00 100 MG Orally 1.5 Once a day at tablets at bedtime bedtime Vitamin B 12 [facility] [address]81-[address]382 250 MCG Orally not defined Escitalopram [facility] [address]-36 10 MG Orally 1 tablet Oxalate Once a day Melatonin [facility] [address]-09 3 MG Orally 1 tablet Once a day at bedtime as needed with food Crestor [facility] 24889935852 10MG Orally 10 mg Once a day Amlodipine [facility] [address]-40 10 MG Orally 1 tablet Besylate Once a day Aspirin [facility] 42717-27898 81 MG Orally 1 tablet Once a day Lisinopril-Hydr [facility] [address]-86 20-12.5 MG 1 tablet ochlorothiazide Orally Once a day Potassimin [facility] [address]-39 75 MG Orally 1 tablet Once a day Tamsulosin HCl [facility] 77516669601 0.4MG TAKE ONE CAPSULE BY MOUTH ONCE DAILY 30 MINUTES AFTER THE SAME MEAL EACH DAY. Doxycycline [facility] [address]-28 100 MG Orally 1 tablet Hyclate Once a day Garlic [facility] [address]37-[address]175 1000 MG Orally not defined Procedures Procedure Coding System Code Date OFFICE VISIT, EST-LOW COMPLEXITY (15 MIN.) CPT-4 27260 Oct 02, 2015 [facility] visit Established Patient CPT-4 G0467 Oct 02, 2015 Vital Signs Date/Time: Oct 02, 2015 Temperature 96.8 F Height 65 in Weight 219.8 lbs Blood Pressure Diastolic 86 mm Hg Blood Pressure Systolic 134 mm Hg Cardiac Monitoring Heart Rate 66 /min BMI 36.57 Index Respiratory Rate 16 /min Results No Known Results Summary Purpose eClinicalWorks Submission
--- OUTSIDE RECORDS SUMMARY | 2017-01-10 09:34 | External Medical Summary ---
:1945 Author Organization eClinicalWorks Care Team Providers Name Role Phone Elsi Luna Provider Role Unavailable Allergies No Known Allergies Problems No Known Problems Medications Medication Code Code Instructions Start End Date Status Dosage System Date Crestor NDC 79347-40 5 MG Orally Once 1 tablet 55-90 a day Trazodone HCl NDC 65523-29 50 MG Orally 1 tablet at 37-01 Once a day bedtime Lisinopril-[place] NDC 22093-75 20-12.5 MG 1 tablet chlorothiazide 36-01 Orally Once a day Escitalopram NDC 95957-08 10 MG Orally 1 tablet Oxalate 51-01 Once a day Tamsulosin HCl NDC 34864-14 0.4 MG Orally Jan 14, capsule 38-01 Once a day 2014 30 minutes after the [place] [address]-09 10 MG Orally 1 tablet Besylate 02-20 Once a day Results No Known Results Summary Purpose eClinicalWorks Submission
--- OUTSIDE RECORDS SUMMARY | 2017-01-10 09:34 | External Medical Summary ---
:1945 [facility] Team Providers Name Role Phone New De La Cruz Provider Role Unavailable Allergies, Adverse Reactions, Alerts Substance Reaction Event Type N.K.D.A. 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 Active tract symptoms Assessment Adjustment disorder with depressed F43.21 Active mood Assessment Essential (primary) hypertension I10 Active Assessment Anemia, unspecified D64.9 Active Problem Essential (primary) hypertension I10 Active Problem Major depressive disorder, single F32.9 Active episode, unspecified Problem Transient cerebral ischemic attack, G45.9 Active unspecified Assessment Alzheimer's disease, unspecified G30.9 Active Assessment Major depressive disorder, single F32.9 Active episode, unspecified Problem Impotence of organic origin 607.84 Active Problem Other male erectile dysfunction N52.8 Active Medications Medication Code Code Instructions Start End Status Dosage System Date Date Lisinopril-Hydr [facility] [address]-19 20-12.5 MG 1 tablet ochlorothiazide Orally Once a day Tamsulosin HCl [facility] 31125130408 0.4MG HS TAKE ONE CAPSULE BY MOUTH Risperidone [facility] [address]-78 0.5 MG Orally Nov 10, 1 tablet every 12 hours. 2015 Crestor [facility] [address]-21 5 MG Orally Nov 04, 1 tablet Once a day HS 2015 Amlodipine [facility] [address]-43 10 MG Orally 1 tablet Besylate Once a day Escitalopram [facility] [address]-30 20 MG Orally 1 tablet Oxalate Once a day Risperidone [facility] [address]-63 0.5 MG Orally Nov 04, 1 tablet BID 2015 Aspirin [facility] 44[address]-88676 81 MG Orally 1 tablet Once a day Aricept [facility] [address]-69 10 MG Orally Nov 04, 1 tablet Once a day 2016 at bedtime Trazodone HCl [facility] [address]-06 50 MG Orally 1 tablet Once a day at at bedtime bedtime Procedures Procedure Coding System Code Date OFFICE VISIT, EST-LOW COMPLEXITY (15 MIN.) CPT-4 72465 Nov 11, 2015 [facility] visit Established Patient CPT-4 G0467 Nov 11, 2015 Vital Signs Date/Time: Nov 11, 2015 Temperature 97.9 F Height 65 in Weight 205.8 lbs Blood Pressure Diastolic 84 mm Hg Blood Pressure Systolic 128 mm Hg Cardiac Monitoring Heart Rate 60 /min BMI 34.24 Index Oximetry 96 % Respiratory Rate 16 /min Results No Known Results Summary Purpose eClinicalWorks Submission
--- OUTSIDE RECORDS SUMMARY | 2017-01-10 09:34 | External Medical Summary ---
[...] Problem Impotence of organic origin 607.84 Active Medications Medication Code Code Instructions Start End Status Dosage System Date Date Korey [facility] [address]21 1000 MG Orally not defined Tamsulosin HCl [facility] 43025020728 0.4MG TAKE ONE CAPSULE BY MOUTH ONCE DAILY 30 MINUTES AFTER THE SAME MEAL EACH DAY. Aspirin [facility] [address]863 81 MG Orally 1 tablet Once a day Crestor [facility] 26020675876 10MG Orally 10 mg Once a day Melatonin [facility] [address]-68 3 MG Orally 1 tablet Once a day at bedtime as needed with food Trazodone HCl [facility] [address]-24 100 MG Orally 1.5 Once a day at tablets at bedtime bedtime Escitalopram [facility] [address]-48 10 MG Orally 1 tablet Oxalate Once a day Vitamin B [address] [facility] [address]015 250 MCG Orally not defined Potassimin [facility] [address]-01 75 MG Orally 1 tablet Once a day Lisinopril-Hydr [facility] [address]-96 20-12.5 MG 1 tablet ochlorothiazide Orally Once a day Doxycycline [facility] [address]-82 100 MG Orally 1 tablet Hyclate Once a day Cod Liver Oil [facility] [address]-43 Orally not defined Amlodipine [facility] [address]-21 10 MG Orally 1 tablet Besylate Once a day Results No Known Results Summary Purpose eClinicalWorks Submission
[2017-01-10] MEDS ORDERED: KETOROLAC 30 MG/ML INJECTION IVP ONE (09:35)
--- OUTSIDE RECORDS SUMMARY | 2017-01-10 09:35 | External Medical Summary ---
:1945 [facility] Team Providers Name Role Phone New De La Cruz Provider Role Unavailable Allergies, Adverse Reactions, Alerts Substance Reaction Event Type N.K.D.A. Info Not Available Non Drug Allergy Problems Problem Type Condition Code Onset Dates Condition Status Assessment Diarrhea, unspecified R19.7 Active Assessment Nausea with vomiting, unspecified R11.2 Active Assessment Infectious gastroenteritis and A09 Active colitis, unspecified Medications Medication Code Code Instructions Start End Date Status Dosage System Date Melatonin [facility] 46794-14 3 MG Orally Once 1 tablet 12-08 a day at bed[place] [address]-55 Orally not 46-01 defined Amlodipine [facility] 15308-18 10 MG Orally 1 tablet Besylate 02-20 Once a day Crestor [facility] 07441-75 10 MG Orally 10 mg 51-39 Once a day Garlic [facility] 22033-68 1000 MG Orally not 533 defined Trazodone HCl [facility] 22606-25 50 MG Orally 1 tablet 37-01 Once a day at bedtime Potassimin [facility] 45857-95 75 MG Orally 1 tablet 43-01 Once a day Vitamin B 12 [facility] 60584-85 250 MCG Orally not 581 defined Lisinopril-[place] [facility] 14652-27 20-12.5 MG 1 tablet chlorothiazide 36-01 Orally Once a day Escitalopram [facility] 60288-21 10 MG Orally 1 tablet Oxalate 51-01 Once a day Aspirin [facility] 40468-10 81 MG Orally 1 tablet 805 Once a day Tamsulosin HCl [facility] 67769-81 0.4 MG Orally Jan 27, April 26, 1 capsule 38-01 Once a day 2014 2015 30 minutes after the same meal each day Procedures Procedure Coding System Code Date OFFICE VISIT, EST-LOW COMPLEXITY (15 MIN.) CPT-4 15547 Mar 21, 2015 [facility] visit Established Patient CPT-4 G0467 Mar 21, 2015 Vital Signs Date/Time: Mar 21, 2015 Height 65 in Weight 214.12 lbs Temperature 98.0 F Blood Pressure Diastolic 58 mm Hg Blood Pressure Systolic 122 mm Hg Cardiac Monitoring Heart Rate 60 /min BMI 35.63 Index Respiratory Rate 16 /min Results No Known Results Summary Purpose eClinicalWorks Submission
--- OUTSIDE RECORDS SUMMARY | 2017-01-10 09:35 | External Medical Summary ---
:1945 Author Organization eClinicalWorks Care Team Providers Name Role Phone New De La Cruz Provider Role Unavailable Allergies No Known Allergies Problems No Known Problems Medications Medication Code System Code Instructions Start Date End Date Status Dosage [facility] 77140-814 10 MG Orally Once 10 mg in 1-39 a day the morning and 5 mg at night Results No Known Results Summary Purpose eClinicalWorks Submission
--- OUTSIDE RECORDS SUMMARY | 2017-01-10 09:35 | External Medical Summary ---
:1945 Author Organization eClinicalWorks Care Team Providers Name Role Phone New De La Cruz Provider Role Unavailable Allergies No Known Allergies Problems Problem Type Condition Code Onset Dates Condition Status Problem Essential (primary) hypertension I10 Active Problem Major depressive disorder, single F32.9 Active episode, unspecified Problem Transient cerebral ischemic attack, G45.9 Active unspecified Assessment Unspecified staphylococcus as the B95.8 Active cause of diseases classified elsewhere Problem Impotence of organic origin 607.84 Active Problem Other male erectile dysfunction N52.8 Active Medications Medication Code Code Instructions Start End Status Dosage System Date Date Escitalopram [facility] [address]-85 20 MG Orally 1 tablet Oxalate Once a day Crestor [facility] [address]-88 5 MG Orally Nov 04, 1 tablet Once a day HS 2015 Aricept [facility] [address]-65 10 MG Orally Nov 04, 1 tablet Once a day 2015 at bedtime Tamsulosin HCl [facility] 00452104990 0.4MG HS TAKE ONE CAPSULE BY MOUTH Aspirin [facility] 51905-26066 81 MG Orally 1 tablet Once a day Risperidone [facility] [address]-10 0.5 MG Orally Nov 04, 1 tablet BID 2015 Results No Known Results Summary Purpose eClinicalWorks Submission
--- OUTSIDE RECORDS SUMMARY | 2017-01-10 09:35 | External Medical Summary ---
:1945 Author Organization eClinicalWorks Care Team Providers Name Role Phone Nwe De La Cruz Provider Role Unavailable Allergies No Known Allergies Problems No Known Problems Medications No Known Medications Results No Known Results Summary Purpose eClinicalWorks Submission
--- OUTSIDE RECORDS SUMMARY | 2017-01-10 09:35 | External Medical Summary ---
:1947 Author Organization eClinicalWorks Care Team Providers Name Role Phone New De La Cruz Provider Role Unavailable Allergies No Known Allergies Problems No Known Problems Medications Medication Code System Code Instructions Start End Date Status Dosage Date Trazodone HCl [facility] 89680-168 50 MG Orally 1 tablet at 7-01 Once a day bedtime Results No Known Results Summary Purpose eClinicalWorks Submission
--- OUTSIDE RECORDS SUMMARY | 2017-01-10 09:35 | External Medical Summary ---
:1945 Author Organization eClinicalWorks Care Team Providers Name Role Phone New De La Cruz Provider Role Unavailable Allergies, Adverse Reactions, Alerts Substance Reaction Event Type N.K.D.A. Info Not Available Non Drug Allergy Problems Problem Type Condition Code Onset Dates Condition Status Assessment Pain in joint, upper arm 719.42 Active Assessment Other fall E888.8 Active Medications Medication Code System Code Instructions Start End Date [place] [address] 20-12.5 MG 1 tablet ochlorothiazide 6-01 Orally Once a day Atenolol NDC 89698-715 5 MG Orally Once 1 tablet 2-01 a day Crestor NDC 28586-671 5 MG Orally Once 1 tablet 5-90 a day Aspirin [facility] 66988-966 50 MG Orally 1 tablet 40 Once a day Amlodipine NDC 94462-366 10 MG Orally 1/2 tablet Besylate 2-20 Once a day Procedures Procedure Coding System Code Date OFFICE VISIT, [employer]EN[employer] RATE CLERK-LOW COMPLEXITY (20 MIN.) CPT-4 49180 May 27, 2014 [facility] visit New Patient CPT-4 G0466 May 27, 2014 Vital Signs Date/Time: May 27, 2014 Height 65 in Weight 220.8 lbs Temperature 97.9 F Blood Pressure Diastolic 60 mm Hg Blood Pressure Systolic 112 mm Hg Cardiac Monitoring Heart Rate 60 /min BMI 36.74 Index Respiratory Rate 16 /min Results No Known Results Summary Purpose eClinicalWorks Submission
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
--- OUTSIDE RECORDS SUMMARY | 2017-01-10 09:35 | External Medical Summary ---
[...] Status Dosage System Date Vitamin B 12 [facility] 20039-41 250 MCG Orally not defined 581 Potassimin [facility] 50326-96 75 MG Orally 1 tablet 43-01 Once a day Crestor [facility] 95739-89 10 MG Orally 10 mg in 51-39 Once a day the morning and 5 mg at night Garlic [facility] 12190-62 1000 MG Orally not defined 533 Lisinopril-[place] [facility] 54333-31 20-12.5 MG 1 tablet chlorothiazide 36-01 Orally Once a day Tamsulosin HCl [facility] 99132-42 0.4 MG Orally Jan 14 1 capsule 38-01 Once a day 2014 30 minutes after the same meal each day Escitalopram [facility] 61761-26 10 MG Orally 1 tablet Oxalate 51-01 Once a day Amlodipine [facility] 21095-34 10 MG Orally 1 tablet Besylate 02-20 Once a day Melatonin [facility] 56582-93 3 MG Orally Once 1 tablet at 12-08 a day bedtime [place] [address]-45 Orally not defined 46-01 Trazodone HCl [facility] 38038-35 50 MG Orally 1 tablet at 37-01 Once a day bedtime Procedures Procedure Coding System Code Date OFFICE VISIT, EST-LOW COMPLEXITY (15 MIN.) CPT-4 85095 August 02, 2014 [facility] visit Established Patient CPT-4 G0467 August 02, 2014 Vital Signs Date/Time: August 02, 2014 Height 65 in Weight 205 lbs Temperature 98.1 F Blood Pressure Diastolic 58 mm Hg Blood Pressure Systolic 120 mm Hg Cardiac Monitoring Heart Rate 60 /min BMI 34.11 Index Respiratory Rate 12 /min Results No Known Results Summary Purpose eClinicalWorks Submission
--- OUTSIDE RECORDS SUMMARY | 2017-01-10 09:35 | External Medical Summary | Referral Summary ---
:1945 Author Organization [facility] Address [address] [place] [address] ZAKIYA Isaacs [phone] Encounter VC Date(s): 06/20/14 - 06/20/14 [facility] [address] [place] [address] [place]AKI[place] Isaacs [id number] Discharge Disposition: 01-Home or Self Care Attending Physician: Guillaume Espinosa MD Admitting Physician: Guillaume Espinosa MD Vital Signs No data available for this section Problem List No data available for this section Allergies, Adverse Reactions, Alerts No data available for this section Medications No data available for this section Results No data available for this section Immunizations No data available for this section Procedures Procedure Date Related Diagnosis Body Site Dressings and/or debridement of partial-thickness 06/20/14 rothman, initial or subsequent; small (less than 5% total body surface area) Social History No data available for this section Assessment and Plan No data available for this section
--- OUTSIDE RECORDS SUMMARY | 2017-01-10 09:35 | External Medical Summary ---
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
--- OUTSIDE RECORDS SUMMARY | 2017-01-10 09:35 | External Medical Summary ---
[...] Impotence of organic origin 607.84 Active Medications No Known Medications Results No Known Results Summary Purpose eClinicalWorks Submission
--- OUTSIDE RECORDS SUMMARY | 2017-01-10 09:35 | External Medical Summary ---
:1945 Author Organization eClinicalWorks Care Team Providers Name Role Phone New De La Cruz Provider Role Unavailable Allergies No Known Allergies Problems Problem Type Condition Code Onset Dates Condition Status Problem Impotence of organic origin 607.84 Active Medications No Known Medications Results No Known Results Summary Purpose eClinicalWorks Submission
--- OUTSIDE RECORDS SUMMARY | 2017-01-10 09:35 | External Medical Summary ---
:1945 Author Organization eClinicalWorks Care Team Providers Name Role Phone New De La Cruz Provider Role Unavailable Allergies No Known Allergies Problems Problem Type Condition Code Onset Dates Condition Status Problem Impotence of organic origin 607.84 Active Medications Medication Code Code Instructions Start End Status Dosage System Date Date Garlic [facility] 38387-46735 1000 MG Orally not defined Escitalopram [facility] [address]-34 10 MG Orally 1 tablet Oxalate Once a day Vitamin B 12 [facility] [address]54-[address]853 250 MCG Orally not defined Viagra [facility] [address]-64 25 MG Orally May 1 tablet as Once a day 14, needed before 2016 sexual intercourse Cod Liver Oil [facility] [address]-51 Orally not defined Crestor [facility] 18943921190 10MG Orally 10 mg Once a day Tamsulosin HCl [facility] 03315573382 0.4MG TAKE ONE CAPSULE BY MOUTH ONCE DAILY 30 MINUTES AFTER THE SAME MEAL EACH DAY. Lisinopril-Hydr [facility] [address]-32 20-12.5 MG 1 tablet ochlorothiazide Orally Once a day Trazodone HCl [facility] [address]-33 50 MG Orally 1 tablet at Once a day bedtime Aspirin [facility] 19165-63034 81 MG Orally 1 tablet Once a day Amlodipine [facility] [address]-73 10 MG Orally 1 tablet Besylate Once a day Melatonin [facility] [address]-93 3 MG Orally 1 tablet at Once a day bedtime as needed with food Potassimin [facility] [address]-93 75 MG Orally 1 tablet Once a day Results No Known Results Summary Purpose eClinicalWorks Submission
--- OUTSIDE RECORDS SUMMARY | 2017-01-10 09:36 | External Medical Summary ---
:1945 Author Organization eClinicalWorks Care Team Providers Name Role Phone Elsi Luna Provider Role Unavailable Allergies No Known Allergies Problems No Known Problems Medications Medication Code Code Instructions Start End Date Status Dosage System Date Crestor NDC 82646-37 5 MG Orally Once 1 tablet 55-90 a day Trazodone HCl NDC 18545-81 50 MG Orally 1 tablet at 37-01 Once a day bedtime Lisinopril-Thomas NDC 29943-96 20-12.5 MG 1 tablet chlorothiazide 36-01 Orally Once a day Escitalopram NDC 78707-20 10 MG Orally 1 tablet Oxalate 51-01 Once a day Tamsulosin HCl NDC 32195-50 0.4 MG Orally Jan 14, capsule 38-01 Once a day 2014 30 minutes after the [place] [address]-56 10 MG Orally 1 tablet Besylate 02-20 Once a day Results No Known Results Summary Purpose eClinicalWorks Submission
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
--- OUTSIDE RECORDS SUMMARY | 2017-01-10 09:36 | External Medical Summary ---
:1945 [facility] Team Providers Name Role Phone New De La Cruz Provider Role Unavailable Allergies, Adverse Reactions, Alerts Substance Reaction Event Type N.K.D.A. Info Not Available Non Drug Allergy Problems Problem Type Condition Code Onset Dates Condition Status Assessment Insomnia, unspecified G47.00 Active Assessment Dental caries, unspecified K02.9 Active Problem Essential (primary) hypertension I10 Active Problem Major depressive disorder, single F32.9 Active episode, unspecified Problem Transient cerebral ischemic attack, G45.9 Active unspecified Assessment Unspecified dementia without F03.90 Active behavioral disturbance Assessment Low vision, both eyes H54.2 Active Problem Impotence of organic origin 607.84 Active Problem Other male erectile dysfunction N52.8 Active Medications Medication Code Code Instructions Start End Status Dosage System Date Date Trazodone HCl [facility] [address]-59 50 MG Orally 1 tablet Once a day at at bedtime bedtime Lisinopril-Hydr [facility] [address]-69 20-12.5 MG 1 tablet ochlorothiazide Orally Once a day Escitalopram [facility] [address]-36 20 MG Orally 1 tablet Oxalate Once a day Crestor [facility] [address]-34 5 MG Orally Nov 04, 1 tablet Once a day HS 2016 Tamsulosin HCl [facility] 15657960651 0.4MG HS TAKE ONE CAPSULE BY MOUTH Aricept [facility] [address]-71 10 MG Orally Nov 04, 1 tablet Once a day 2016 at bedtime Risperidone [facility] [address]-82 0.5 MG Orally Nov 04, 1 tablet BID 2015 Aspirin [facility] [address]24 81 MG Orally 1 tablet Once a day Procedures Procedure Coding System Code Date OFFICE VISIT, EST-LOW COMPLEXITY (15 MIN.) CPT-4 02968 Nov 06, 2015 [facility] visit Established Patient CPT-4 G0467 Nov 06, 2015 Vital Signs Date/Time: Nov 06, 2015 Temperature 98.3 F Height 65 in Weight 205.8 lbs Blood Pressure Diastolic 64 mm Hg Blood Pressure Systolic 132 mm Hg Cardiac Monitoring Heart Rate 64 /min BMI 34.24 Index Oximetry 94 % Respiratory Rate 16 /min Results No Known Results Summary Purpose eClinicalWorks Submission
--- OUTSIDE RECORDS SUMMARY | 2017-01-10 09:36 | External Medical Summary ---
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 Assessment Essential (primary) hypertension I10 Active Problem Impotence of organic origin 607.84 Active Assessment Anemia, unspecified D64.9 Active Medications Medication Code Code Instructions Start End Status Dosage System Date Date Melatonin [facility] [address]-97 3 MG Orally 1 tablet Once a day at bedtime as needed with food Doxycycline [facility] [address]-41 100 MG Orally 1 tablet Hyclate Once a day Lisinopril-Hydr [facility] [address]-03 20-12.5 MG 1 tablet ochlorothiazide Orally Once a day Crestor [facility] 38043027339 10MG Orally 10 mg Once a day Garlic [facility] [address]86[address] 1000 MG Orally not defined Escitalopram [facility] [address]-94 10 MG Orally 1 tablet Oxalate Once a day Trazodone HCl [facility] [address]-45 100 MG Orally 1.5 Once a day at tablets at bedtime bedtime Vitamin B 12 [facility] 608[address] 250 MCG Orally not defined Aspirin [facility] [address]2437-42291 81 MG Orally 1 tablet Once a day Potassimin [facility] [address]-30 75 MG Orally 1 tablet Once a day Tamsulosin HCl [facility] 45465033977 0.4MG TAKE ONE CAPSULE BY MOUTH ONCE DAILY 30 MINUTES AFTER THE SAME MEAL EACH DAY. Cod Liver Oil [facility] [address]-34 Orally not defined Amlodipine [facility] [address]-35 10 MG Orally 1 tablet Besylate Once a day Procedures Procedure Coding System Code Date [facility] MicroAlb/Creat Ratio, Urine CPT-4 74968 Oct 03, 2015 [facility] MicroAlb/Creat Ratio, Urine CPT-4 30163 Oct 03, 2015 COMPLETE CBC W/AUTO DIFF WBC CPT-4 75993 Oct 03, 2015 [facility] CMP CPT-4 40295 Oct 03, 2015 URINALYSIS WITH MICROSCOPIC CPT-4 02029 Oct 03, 2015 [facility] LIPID PANEL CPT-4 26514 Oct 03, 2015 LIPID PANEL CPT-4 42240 Oct 03, 2015 COMPREHENSIVE METABOLIC PANEL CPT-4 69884 Oct 03, 2015 TSH CPT-4 90718 Oct 03, 2015 MAGNESIUM CPT-4 65881 Oct 03, 2015 Results Name Result Date Reference Range Unit Abnormality Flag Urinalysis with Microscopic ----Urobilinogen 1.0 [id number] <1.0 mg/dL ----pH 7.0 38392563 5.0-8.0 ----Glucose, Urine Negative [id number] Negative ----Ketones Negative 41698316 Negative ----Blood Negative [id number] Negative ----Urine Mucus Present 20151003 ----Protein Negative [id number] Negative ----Epithelial Cells 0-2 66244161 /HPF ----Nitrites Negative 34887870 Negative ----WBC, Urine 0-2 42535914 0-4 /HPF ----Bilirubin Negative 74235572 Negative ----Appearance Clear 20151003 ----Specific [place] 1.018 47408905 1.003-1.030 ----RBC, Urine 0-4 [id number] 0-4 /HPF ----Color Yellow 20151003 ----Leukocyte Esterase Negative 20151003 Negative Magnesium ----Magnesium 2.7 38183877 1.6-2.6 mg/dL H CBC With Platelet and Differential ----Absolute Eosinophils 0.20 [id number] 0.00-0.50 10*3 ----Absolute Monocytes 0.88 00981588 0.30-1.00 10*3 ----Neutrophils 59 66004660 51-75 % ----Absolute Basophils 0.02 72564425 0.00-0.20 10*3 ----MPV 9.8 71222639 8.8-14.8 fL ----Monocytes 12 20151003 4-11 % H ----RDW 14.6 [id number] 11.5-14.5 % H ----Lymphocytes 26 20151003 20-46 % ----MCHC 33.1 20151003 32.0-36.0 g/dL ----MCH 29.6 20151003 27.0-32.0 pg ----MCV 89.4 20151003 82.0-99.0 fL ----Immature 0.3 99120954 0.0-1.0 % Granulocytes ----Platelet Count 281 20151003 150-400 K/uL ----Absolute Lymphocytes 2.00 91663791 0.80-3.30 10*3 ----Absolute Neutrophils 4.45 63779809 1.90-7.00 10*3 ----Eosinophils 3 20151003 0-4 % ----Basophils 0 88859767 0-2 % ----WBC 7.6 20151003 4.8-10.8 K/uL ----RBC 4.43 53582126 4.60-6.20 10*6/uL L ----HGB 13.1 20151003 14.0-18.0 g/dL L ----HCT 39.6 20151003 42.0-52.0 % L TSH ----TSH 2.59 20151003 0.35-4.94 uIU/mL In House Microalb/Creat Ratio, Urine ----Microalb/Creat Ratio 5.8 20151003 ----Microalbum.,U,Random 8.0 20151003 ----Creatinine, Urine 136.9 20151003 In House CMP ----Creatinine 1.0 20151003 0.6 - 1.2 mg/DL ----BUN 18 20151003 7 - 22 mg/DL ----Calcium 8.8 20151003 8.0 - 10.3 mg/DL ----Glucose 94 20151003 73 - 118 mg/DL ----Chloride 99 20151003 98 - 108 mmol/L ----CO2 28 20151003 18 - 33 mmol/L ----Potassium 4.0 59776962 3.6 - 5.1 mmol/L ----Sodium 138 20151003 128 - 145 mmol/L ----EGFR >60 20151003 ----Total Protein 7.3 20151003 6.4 - 8.1 G/DL ----ALT 32 20151003 10 - 47 u/L ----AST 32 20151003 11 - 38 u/L ----Total Bilirubin 0.5 20151003 0.2 - 1.6 mg/DL ----Albumin 3.9 20151003 3.3 - 5.5 g/DL ----Alkaline Phosphatase 43* 20151003 53 - 128 u/L In House Lipid Panel ----Triglycerides 148 20151003 ----HDL 27 20151003 ----Chol/HDL Ratio 4.6 20151003 ----SCDLc 98 20151003 ----VLDL 30 20151003 ----LDL 68 20151003 ----Cholesterol 125 20151003 Summary Purpose eClinicalWorks Submission
--- OUTSIDE RECORDS SUMMARY | 2017-01-10 09:36 | External Medical Summary ---
:1945 Author Organization eClinicalWorks Care Team Providers Name Role Phone New De La Cruz Provider Role Unavailable Allergies, Adverse Reactions, Alerts Substance Reaction Event Type N.K.D.A. Info Not Available Non Drug Allergy Problems Problem Type Condition Code Onset Dates Condition Status Assessment Major depressive disorder, single F32.9 Active episode, unspecified Assessment Insomnia, unspecified G47.00 Active Assessment Olecranon bursitis, unspecified M70.20 Active elbow Assessment Nocturia R35.1 Active Problem Essential (primary) hypertension I10 Active Problem Major depressive disorder, single F32.9 Active episode, unspecified Problem Transient cerebral ischemic attack, G45.9 Active unspecified Assessment Essential (primary) hypertension I10 Active Assessment Alzheimer's disease, unspecified G30.9 Active Problem Impotence of organic origin 607.84 Active Assessment Anemia, unspecified D64.9 Active Medications Medication Code Code Instructions Start End Status Dosage System Date Date Cod Liver Oil [facility] [address]-45 Orally not defined Escitalopram [facility] [address]-35 10 MG Orally 1 tablet Oxalate Once a day Amlodipine [facility] [address]-66 10 MG Orally 1 tablet Besylate Once a day Melatonin [facility] [address]-02 3 MG Orally 1 tablet Once a day at bedtime as needed with food Potassimin [facility] [address]-83 75 MG Orally 1 tablet Once a day Crestor [facility] 43529534573 10MG Orally 10 mg Once a day Trazodone HCl [facility] [address]-70 100 MG Orally 1.5 Once a day at tablets at bedtime bedtime Lisinopril-Hydr [facility] [address]-20 20-12.5 MG 1 tablet ochlorothiazide Orally Once a day Aspirin [facility] [address]248 81 MG Orally 1 tablet Once a day Tamsulosin HCl [facility] 15782691944 0.4MG TAKE ONE CAPSULE BY MOUTH ONCE DAILY 30 MINUTES AFTER THE SAME MEAL EACH DAY. Doxycycline [facility] [address]-93 100 MG Orally 1 tablet Hyclate Once a day Garlic [facility] [address] 1000 MG Orally not defined Vitamin B [address] [facility] [address]24 250 MCG Orally not defined Procedures Procedure Coding System Code Date OFFICE VISIT, EST-LOW COMPLEXITY (15 MIN.) CPT-4 84381 Oct 10, 2015 [facility] visit Established Patient CPT-4 G0467 Oct 10, 2015 Vital Signs Date/Time: Oct 10, 2015 Temperature 97.1 F Height 65 in Weight 214.0 lbs Blood Pressure Diastolic 76 mm Hg Blood Pressure Systolic 132 mm Hg Cardiac Monitoring Heart Rate 60 /min BMI 35.61 Index Oximetry 97 % Respiratory Rate 16 /min Results No Known Results Summary Purpose eClinicalWorks Submission
--- OUTSIDE RECORDS SUMMARY | 2017-01-10 09:36 | External Medical Summary ---
[...] Status Dosage System Date Vitamin B 12 [facility] 66946-00 250 MCG Orally not defined 581 Potassimin [facility] 10979-67 75 MG Orally 1 tablet 43-01 Once a day Crestor [facility] 51113-96 10 MG Orally 10 mg in 51-39 Once a day the morning and 5 mg at night Garlic [facility] 57483-10 1000 MG Orally not defined 533 Lisinopril-[place] [facility] 80134-38 20-12.5 MG 1 tablet chlorothiazide 36-01 Orally Once a day Tamsulosin HCl [facility] 91339-08 0.4 MG Orally Jan 14 1 capsule 38-01 Once a day 2014 30 minutes after the same meal each day Escitalopram [facility] 67386-55 10 MG Orally 1 tablet Oxalate 51-01 Once a day Amlodipine [facility] 26652-67 10 MG Orally 1 tablet Besylate 02-20 Once a day Melatonin [facility] 94694-53 3 MG Orally Once 1 tablet at 12-08 a day bed[place] [address]-18 Orally not defined 46-01 Trazodone HCl [facility] 42574-02 50 MG Orally 1 tablet at 37-01 Once a day bedtime Procedures Procedure Coding System Code Date OFFICE VISIT, EST-LOW COMPLEXITY (15 MIN.) CPT-4 70865 August 02, 2014 [facility] visit Established Patient CPT-4 G0467 August 02, 2014 Vital Signs Date/Time: August 02, 2014 Height 65 in Weight 205 lbs Temperature 98.1 F Blood Pressure Diastolic 58 mm Hg Blood Pressure Systolic 120 mm Hg Cardiac Monitoring Heart Rate 60 /min BMI 34.11 Index Respiratory Rate 12 /min Results No Known Results Summary Purpose eClinicalWorks Submission
--- OUTSIDE RECORDS SUMMARY | 2017-01-10 09:36 | External Medical Summary ---
:1945 Author Organization eClinicalWorks Care Team Providers Name Role Phone New De La Cruz Provider Role Unavailable Allergies, Adverse Reactions, Alerts Substance Reaction Event Type N.K.D.A. Info Not Available Non Drug Allergy Problems Problem Type Condition Code Onset Dates Condition Status Assessment Major depressive disorder, single F32.9 Active episode, unspecified Assessment Essential (primary) hypertension I10 Active Assessment Disorientation, unspecified R41.0 Active Problem Essential (primary) hypertension I10 Active Problem Major depressive disorder, single F32.9 Active episode, unspecified Problem Transient cerebral ischemic attack, G45.9 Active unspecified Assessment Unspecified dementia without F03.90 Active behavioral disturbance Assessment Adjustment insomnia F51.02 Active Problem Impotence of organic origin 607.84 Active Problem 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 Amlodipine [facility] [address]-28 10 MG Orally 1 tablet Besylate Once a day Trazodone HCl [facility] [address]-24 50 MG Orally 1 tablet Once a day at at bedtime bedtime Escitalopram [facility] [address]-57 10 MG Orally 1 tablet Oxalate Once a day Lisinopril-Hydr [facility] [address]-56 20-12.5 MG 1 tablet ochlorothiazide Orally Once a day Procedures Procedure Coding System Code Date OFFICE VISIT, EST-LOW COMPLEXITY (15 MIN.) CPT-4 28137 Oct 30, 2015 [facility] visit Established Patient CPT-4 G0467 Oct 30, 2015 Vital Signs Date/Time: Oct 30, 2015 Temperature 97.5 F Height 65 in Weight 216.8 lbs Blood Pressure Diastolic 62 mm Hg Blood Pressure Systolic 118 mm Hg Cardiac Monitoring Heart Rate 60 /min BMI 36.07 Index Oximetry 94 % Respiratory Rate 16 /min Results No Known Results Summary Purpose eClinicalWorks Submission
--- OUTSIDE RECORDS SUMMARY | 2017-01-10 09:36 | External Medical Summary ---
:1945 Author Organization eClinicalWorks Care Team Providers Name Role Phone New De La Cruz Provider Role Unavailable Allergies No Known Allergies Problems No Known Problems Medications Medication Code System Code Instructions Start Date End Date Status Dosage [facility] [address] 10 MG Orally Once 10 mg -39 a day Results No Known Results Summary Purpose eClinicalWorks Submission
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
--- OUTSIDE RECORDS SUMMARY | 2017-01-10 09:36 | External Medical Summary ---
:1945 Author Organization eClinicalWorks Care Team Providers Name Role Phone Karen Veliz Provider Role Unavailable Allergies No Known Allergies Problems No Known Problems Medications No Known Medications Results No Known Results Summary Purpose eClinicalWorks Submission
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
--- OUTSIDE RECORDS SUMMARY | 2017-01-10 09:36 | External Medical Summary ---
:1947 Author Organization [employer] Care Team Providers Name Role Phone New De La Cruz Provider Role Unavailable Allergies No Known Allergies Problems No Known Problems Medications Medication Code Code Instructions Start End Date Status Dosage System Date Tamsulosin HCl [facility] 60988-82 0.4 MG Orally Jan 27April 26, capsule 38-01 Once a day 2014 2015 30 minutes after the same meal each day Results No Known Results Summary Purpose eClinicalWorks Submission
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
--- OUTSIDE RECORDS SUMMARY | 2017-01-10 09:36 | External Medical Summary ---
:1947 Author Organization eClinicalWorks Care Team Providers Name Role Phone Fortino Sherwood Provider Role Unavailable Allergies, Adverse Reactions, Alerts Substance Reaction Event Type N.K.D.A. Info Not Available Non Drug Allergy Problems Problem Type Condition Code Onset Dates Condition Status Assessment Dental caries, unspecified K02.9 Active Medications Medication Code Code Instructions Start End Date Status Dosage System Date [place] [facility] 66750-89 5-325 MG Orally Jan 20, Jan 25, 1 tablet as 13-01 every 4-6 hrs 2014 2014 needed prn Melatonin [facility] 48242-91 3 MG Orally Once 1 tablet at 12-08 a day bedtime as needed with food Garlic [facility] 50066-98 1000 MG Orally not defined 533 Potassimin [facility] 13961-09 75 MG Orally 1 tablet 43-01 Once a day Lisinopril-[place] [facility] 24860-87 20-12.5 MG 1 tablet chlorothiazide 36-01 Orally Once a day Aspirin [facility] 15013-89 81 MG Orally 1 tablet 805 Once a day Trazodone HCl [facility] 09513-58 50 MG Orally 1 tablet at 37-01 Once a day bedtime Vitamin B 12 [facility] 15429-71 250 MCG Orally not defined 581 Cod Liver Oil [facility] 62389-68 Orally not defined 46-01 Escitalopram [facility] 98610-30 10 MG Orally 1 tablet Oxalate 51-01 Once a day Amlodipine [facility] 68999-27 10 MG Orally 1 tablet Besylate 02-20 Once a day Crestor [facility] 45221-24 10 MG Orally 10 mg 51-39 Once a day Procedures Procedure Coding System Code Date SURG REMOVAL ERUPTED TOOTH CPT-4 D7210 Jan 21, 2015 Vital Signs Date/Time: Jan 20, 2015 Blood Pressure Systolic 134 mm Hg Cardiac Monitoring Heart Rate 54 /min Height 65 in Blood Pressure Diastolic 44 mm Hg Results Name Result Date Reference Range Unit Abnormality Flag In House Protime INR ----results 1.0 [id number] Summary Purpose eClinicalWorks Submission
[2017-01-10] MEDS: SALINE FLUSH 10ml SYRINGE IVF PRN ×3 (09:46→21:10)
--- NOTE | 2017-01-10 10:22 | Emergency Department Report ---
Nausea/Vomiting/Diarrhea HPI - General Chief complaint: Nausea/Vomiting/Diarrhea Stated complaint: vomiting Time Seen by Provider: 01/10/17 09:23 - History of Present Illness HPI Narrative: 71-year-old with severe nausea vomiting and diarrhea. symptoms for 2 days starting yesterday morning. No fever, no chills. He does have body aches and feels miserable. His brings him in because he says some confusion as well. Unable to keep any fluids or food down. Normocephalic, sick. He did have exposure to some great-grandchildren last week that had stomach flu. - Related Data Home Medications Medication Instructions Recorded Confirmed Lisinopril/Hydrochlorothiazide 1 tab PO DAILY #0 tab 06/19/14 01/10/17 [Lisinopril-Hctz 20-12.5 mg Tab] Cod Liver Oil 1 cap PO DAILY #0 08/22/14 01/10/17 Rosuvastatin [Crestor] 10 mg PO HS #0 09/15/15 01/10/17 Tamsulosin HCl 0.4 mg PO HS #0 09/15/15 01/10/17 Apixaban [Eliquis] 5 mg PO BID #60 12/09/15 01/10/17 Gabapentin 300 mg PO HS #0 cap 12/09/15 01/10/17 Cyanocobalamin (Vitamin B-12) 1,000 mcg PO DAILY #30 tab 12/10/15 01/10/17 [Vitamin B-12] Garlic 1 tab PO DAILY #0 12/10/15 01/10/17 Trazodone HCl 50 mg PO HS #0 tab 12/10/15 01/10/17 Vit E/Cu/Donna/Zinc/Pygeum/Saw P 1 cap PO DAILY #0 12/10/15 01/10/17 [Prostamen Softgel] Previous Rx's Medication Instructions Recorded Divalproex [Depakote] 250 mg PO DAILY #30 07/22/16 Divalproex [Depakote] 500 mg PO HS #30 07/22/16 Allergies Allergy/AdvReac Type Severity Reaction Status Date / Time No Known Drug Allergies Allergy Unknown Verified 01/10/17 09:27 Review of Systems All systems: reviewed and negative except as stated PFSH Patient Stated Medical History Cerebrovascular Accident Yes Dementia Yes Coronary Artery Disease Yes Hypertension Yes Myocardial Infarction Yes Other GI Yes: [facility] Medical History Major neurocognitive disorder, due to Alzheimer's disease, with behavioral disturbance, mild (Acute Medical) PAF (paroxysmal atrial fibrillation) (Chronic Medical) CAD (coronary artery disease) (Chronic Medical) HTN (hypertension) (Chronic Medical) Hyperlipidemia (Chronic Medical) Obesity (BMI 30-39.9) (Chronic Medical) Chronic back pain (Chronic Medical) Acute hypernatremia (Acute Medical) Due to vascular changes and frontotemporal disease Normocytic anemia (Chronic Medical) Major 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 (Chronic Medical) Bipolar disorder (Chronic Medical) rule out Surgical History: Left heart catheterization (12/2015) - grafts patent, EF 65% ( [facility]). CABG x4 (1992) and x3 (2008). Back surgery (1992 and 2010). Left rotator cuff repair 1999 - Social History Current residence: Apartment/Private Home Physical Exam - Limitations Limitations: no limitations - General General appearance: alert, in distress (patient is miserable with abdominal pain and fatigue) - Normal Exams: Head:: Normocephalic without trauma Chest/Respirations:: Clear all berman, with good airflow, and symmetry bilaterally Abdomen:: Bowel sounds positive, non-distended, no hepatosplenomegaly, masses or bruits noted Neurological:: Patient is alert, and oriented, cranial nerves, motor/sensory/ cerebellar, exams w/o gross deficits, to observation Psychiatric:: Patient exhibits, appropriate attention, emotion and affect - Abdominal Exam Abdominal exam: Present: distention (mild), tenderness, hyperactive bowel sounds. Absent: guarding, rebound, rigidity Course Vital Signs Temperature 98.2 F 01/10/17 09:00 Pulse Rate 105 H 01/10/17 09:00 Respiratory Rate 22 01/10/17 09:00 Blood Pressure 136/74 01/10/17 09:00 Pulse Oximetry 93 01/10/17 09:00 Temperature 98.2 F 01/10/17 09:00 Pulse Rate 100 01/10/17 11:52 Respiratory Rate 22 01/10/17 11:52 Blood Pressure 136/59 01/10/17 11:52 Pulse Oximetry 94 01/10/17 11:52 Nausea/Vomiting/Diarrhea - [facility] Narrative Medical decision making narrative: Patient had an episode of diarrhea which was incontinent while he was here in the emergency department. He has continued to have very low energy, minimally interacting during interview and later when I returned to the room as well. IV fluids 1 L normal saline have been given. He received Zofran 4 mg IV. Labs returned showing elevated white count of 16.4 with slight left shift. Changes on CMP reflected dehydration. X-ray shows nonspecific bowel gas patterns likely gastroenteritis. Stool PCR showed Campylobacter and noro virus. I spoke with the hospitalist who agreed to accept patient for hydration and Flexeril management. This point the patient certainly is too weak to manage himself at home. - Medical Records Attestation: I reviewed the patient's medical records. - Lab Data Attestation: I reviewed the patient's lab results. Result diagrams: 01/10/17 09:49 01/10/17 09:41 Lab Results 01/10/17 01/10/17 01/10/17 Range/Units 09:41 09:49 10:18 WBC 16.4 H (4.5-11.0) T/MM3 RBC 4.75 (4.50-5.90) M/MM3 Hgb 13.9 (13.5-17.5) GM/DL Hct 43.6 (41-53) % MCV 91.8 (80-100) UM3 MCH 29.3 (26-34) UUG MCHC 31.9 (31-37) GM/DL RDW Std Deviation 48.0 (36.9-50.2) FL Plt Count 223 (130-400) T/MM3 MPV 10.3 (9.4-12.4) UM3 Immature Gran % (Auto) Not performed Neut % (Auto) Not performed Lymph % (Auto) Not performed [place] % (Auto) Not performed Eos % (Auto) Not performed Baso % (Auto) Not performed Neut # (Auto) Not performed Lymph # (Auto) Not performed [place] # (Auto) Not performed Eos # (Auto) Not performed Baso # (Auto) Not performed Abs Immat Gran (auto) Not performed Neutrophils % (Manual) 67.0 H (33-66) % Band Neutrophils % 22.0 H (0-6) % Lymphocytes % (Manual) 8.0 L (23-45) % Monocytes % (Manual) 3.0 (0-9.0) % Neutrophils # (Manual) 11.0 H (1.8-7.7) T/MM3 Band Neutrophils # 3.6 T/MM3 Lymphocytes # (Manual) 1.3 (1-4.8) T/MM3 Monocytes # (Manual) 0.5 (0-0.8) T/MM3 RBC Morph Comment Normal Turbidity < 20 (0-20) Sodium 146 H (134-144) MEQ/L Potassium 4.4 (3.6-5) MEQ/L Chloride 104 (98-107) MEQ/L Carbon Dioxide 27 (22-30) MEQ/L Anion Gap 15 (5-15) MEQ/L BUN 33.0 H (9-20) MG/DL Creatinine 0.8 (0.8-1.5) MG/DL GFR Calculation 96 BUN/Creatinine Ratio 41 H (6-26) RATIO Glucose 126 H (75-110) MG/DL Calculated Osmolality 290 H (261-280) MOSM/KG Calcium 8.3 L (8.4-10.2) MG/DL Total Bilirubin 0.50 (0.20-1.30) MG/DL Icterus Index < 2 (0-7) AST 29 (17-59) U/L ALT 32 (21-72) U/L Alkaline Phosphatase 51 (38-126) U/L Troponin I < 0.012 (0-0.12) ng/ml Total Protein 7.8 (6.3-8.2) G/DL Albumin 4.2 (3.5-5.0) G/DL Globulin 3.6 (2.4-3.6) G/DL Albumin/Globulin Ratio 1.2 (1.1-2.2) RATIO Lipase 44 (23-300) U/L Plasma Lactate (0.6-2.2) MMOL/L Specimen Hemolysis 75 H (0-25) Ur Collection Type Urine Color (YELLOW) Urine Clarity Urine pH (5.0-8.0) Ur Specific [place] (1.015-1.025) Urine Protein (NEGATIVE) Urine Glucose (UA) (NEGATIVE) Urine Ketones (NEGATIVE) Urine Occult Blood (NEGATIVE) Urine Nitrate (NEGATIVE) Urine Bilirubin (NEGATIVE) Urine Urobilinogen (NORMAL) EU/DL Ur Leukocyte Esterase (NEGATIVE) Urinalysis Comment Stl Cyclospora species Negative (Negative) Stool Rotavirus A PCR Negative (Negative) Stool Adenovirus (PCR) Negative (Negative) Stool Astrovirus (PCR) Negative (Negative) Stool Campylobacter PCR Detected A* (Negative) Stl C.difficile Tox PCR Negative (Negative) Stool Cryptosporidium PCR Negative (Negative) Stl E.coli Shiga Toxins Negative (Negative) Stool E coli O157 PCR N/a (Negative) Stl Enterotoxigenic E PCR Negative (Negative) Stool EPEC (PCR) Negative (Negative) Stool EAEC (PCR) Negative (Negative) Stool Entamoeba (PCR) Negative (Negative) Stool Giardia Lamblia PCR Negative (Negative) Stool Salmonella PCR Negative (Negative) Stool Sapovirus (PCR) Negative (Negative) Stl P. shigelloides PCR Negative (Negative) Stl Shigella/EIEC PCR Negative (Negative) St Y.enterocolitica PCR Negative (Negative) Stool Vibrio (PCR) Negative (Negative) Stl Vibrio cholera PCR Negative (Negative) Stl Norovirus GI/GII PCR Detected A* (Negative) 01/10/17 01/10/17 Range/Units 10:21 12:27 WBC (4.5-11.0) T/MM3 RBC (4.50-5.90) M/MM3 Hgb (13.5-17.5) GM/DL Hct (41-53) % MCV (80-100) UM3 MCH (26-34) UUG MCHC (31-37) GM/DL RDW Std Deviation (36.9-50.2) FL Plt Count (130-400) T/MM3 MPV (9.4-12.4) UM3 Immature Gran % (Auto) Neut % (Auto) Lymph % (Auto) [place] % (Auto) Eos % (Auto) Baso % (Auto) Neut # (Auto) Lymph # (Auto) [place] # (Auto) Eos # (Auto) Baso # (Auto) Abs Immat Gran (auto) Neutrophils % (Manual) (33-66) % Band Neutrophils % (0-6) % Lymphocytes % (Manual) (23-45) % Monocytes % (Manual) (0-9.0) % Neutrophils # (Manual) (1.8-7.7) T/MM3 Band Neutrophils # T/MM3 Lymphocytes # (Manual) (1-4.8) T/MM3 Monocytes # (Manual) (0-0.8) T/MM3 RBC Morph Comment Turbidity (0-20) Sodium (134-144) MEQ/L Potassium (3.6-5) MEQ/L Chloride (98-107) MEQ/L Carbon Dioxide (22-30) MEQ/L Anion Gap (5-15) MEQ/L BUN (9-20) MG/DL Creatinine (0.8-1.5) MG/DL GFR Calculation BUN/Creatinine Ratio (6-26) RATIO Glucose (75-110) MG/DL Calculated Osmolality (261-280) MOSM/KG Calcium (8.4-10.2) MG/DL Total Bilirubin (0.20-1.30) MG/DL Icterus Index (0-7) AST (17-59) U/L ALT (21-72) U/L Alkaline Phosphatase (38-126) U/L Troponin I (0-0.12) ng/ml Total Protein (6.3-8.2) G/DL Albumin (3.5-5.0) G/DL Globulin (2.4-3.6) G/DL Albumin/Globulin Ratio (1.1-2.2) RATIO Lipase (23-300) U/L Plasma Lactate 2.6 H (0.6-2.2) MMOL/L Specimen Hemolysis (0-25) Ur Collection Type Urine, clean catch Urine Color Yellow (YELLOW) Urine Clarity Clear Urine pH 5.5 (5.0-8.0) Ur Specific [place] 1.020 (1.015-1.025) Urine Protein Negative (NEGATIVE) Urine Glucose (UA) Negative (NEGATIVE) Urine Ketones Negative (NEGATIVE) Urine Occult Blood Negative (NEGATIVE) Urine Nitrate Negative (NEGATIVE) Urine Bilirubin Negative (NEGATIVE) Urine Urobilinogen 0.2 (NORMAL) EU/DL Ur Leukocyte Esterase Negative (NEGATIVE) Urinalysis Comment Microscopic not ind. Stl Cyclospora species (Negative) Stool Rotavirus A PCR (Negative) Stool Adenovirus (PCR) (Negative) Stool Astrovirus (PCR) (Negative) Stool Campylobacter PCR (Negative) Stl C.difficile Tox PCR (Negative) Stool Cryptosporidium PCR (Negative) Stl E.coli Shiga Toxins (Negative) Stool E coli O157 PCR (Negative) Stl Enterotoxigenic E PCR (Negative) Stool EPEC (PCR) (Negative) Stool EAEC (PCR) (Negative) Stool Entamoeba (PCR) (Negative) Stool Giardia Lamblia PCR (Negative) Stool Salmonella PCR (Negative) Stool Sapovirus (PCR) (Negative) Stl P. shigelloides PCR (Negative) Stl Shigella/EIEC PCR (Negative) St Y.enterocolitica PCR (Negative) Stool Vibrio (PCR) (Negative) Stl Vibrio cholera PCR (Negative) Stl Norovirus GI/GII PCR (Negative) - Radiology Data Attestation: I reviewed the patient's radiology results. Disposition Clinical Impression: Gastroenteritis, Dehydration Disposition: 02 To [facility] Condition: Stable Time of Disposition: 13:28 - Seen By: physician
[2017-01-10] MEDS ORDERED: ONDANSETRON 4 MG/2 ML INJECTION IVP PRN (13:14)
--- NOTE | 2017-01-10 13:27 | XRay Report ---
Indication: n/v,diarrhea PROCEDURE: XR KUB w upright: Encounter: Initial Comparison: None. Findings: The included portions of the lung bases are clear. Heart size normal. No pleural effusion. There is scattered gas and stool in the abdomen without evidence of obstruction or free air. No soft tissue mass or organomegaly. No abnormal calcification. No definite bony destructive process. IMPRESSION: No evidence for obstruction or perforation. .
[2017-01-10 13:29] VITALS: RESP 20
[2017-01-10 13:34] VITALS: BMI 37.0
[2017-01-10] MEDS: 1/2 NS 1,000 ML IV SCH ×2 (13:50→21:08)
--- NOTE | 2017-01-10 13:50 | History & Physical Report ---
History of Present Illness Date: 01/10/17 Chief complaint: Vomiting, shakes HPI: Abdon Alonzo is a 71 year old male with a hx of dementia; he lives at home with his sister, Chey, who is his DPOA and primary ice crusher. A few days ago he was with family and great-grandchildren, and later found out that they were sick. Over the last 48 hours, he has had progressive GI symptoms - it started as belching in the evening of 01/08/17, and then on 01/09/17 he had diarrhea. This morning, he started to vomit and was shaky and febrile. Chey reports that he was unsteady on his feet. He complains of mouth/throat dryness but denies dysphagia. He denies any respiratory symptoms ie cough/cold/sore throat or SOA. He denies chest pain or palpitations but has a hx of an irregular heart rate. He denies abd pain or cramps. He denies seeing black/bloody stools. He denies any changes or problems urinating. Chey called the clinic today, and ED evaluation was recommended. He was mildly tachycardic (105) and tachypneic (22) on arrival, and later spiked a low-grade fever (100.4). Labs were consistent with severe sepsis with lactate of 2.6 combined with SIRS criteria of leukocytosis (WBC 16.4), bandemia (22%), and tachycardia and tachypnea. He was also mildly hypernatremic with Na of 46. GI panel was positive for norovirus and Campylobacter. He received 500 mL fluid bolus in the ED, Toradol, and Zofran. Dr. Quezada was notified and the patient was admitted to observation status. Review of Systems All systems PM: 10-point ROS was reviewed, no additional remarkable complaints except - Constitutional Constitutional: Present: as per HPI - EENMT Eyes: Absent: change in vision Balance: Absent: vertigo Nose: Absent: obstruction Mouth/Throat: Present: as per HPI - Cardiovascular Cardiovascular: Present: as per HPI Vascular: Present: see HPI - Respiratory Respiratory: Present: as per HPI - Gastrointestinal Gastrointestinal: Present: as per HPI - Genitourinary Genitourinary: Present: as per HPI - Musculoskeletal Musculoskeletal: Present: muscle weakness - Integumentary/Breasts Integumentary: Absent: rash - Neurological Neurological: Present: as per HPI - Psychiatric Psychiatric: Present: as per HPI, depression (hx) - Endocrine Endocrine: Absent: palpitations - Hematologic/Lymphatic Hematologic/Lymphatic: Present: easy bleeding, easy bruising PFSH Major neurocognitive disorder, due to Alzheimer's disease Bipolar disorder PAF on Eliquis CVA CAD, history of [place] HTN Hyperlipidemia Obesity (BMI 30-39.9) Chronic back pain Normocytic anemia Surgical History: Left heart catheterization (12/2015) - grafts patent, EF 65% ( [facility]). CABG x4 (1992) and x3 (2008). Back surgery (1992 and 2010). Left rotator cuff repair 1999 Family History: Father - CHF, COPD Mother - CVA MGM - CVA - Social History Smoking status: Never smoker Substance use type: does not use Alcohol intake frequency: does not drink Current occupational status: retired Previous occupational history: cross country truck driver Current residence: Apartment/Private Home Social history: Lives with sister; also has a friend who lives in the basement and he helps care for Abdon when Chey is out of town. Abdon no longer drives. Medications Home Medications Medication Instructions Recorded Confirmed Type Lisinopril/Hydrochlorothiazide 1 tab PO DAILY #0 tab 06/19/14 01/10/17 History [Lisinopril-Hctz 20-12.5 mg Tab] Cod Liver Oil 1 cap PO DAILY #0 08/22/14 01/10/17 History Rosuvastatin [Crestor] 10 mg PO HS #0 09/15/15 01/10/17 History Tamsulosin HCl 0.4 mg PO HS #0 09/15/15 01/10/17 History Apixaban [Eliquis] 5 mg PO BID #60 12/09/15 01/10/17 History Gabapentin 300 mg PO HS #0 cap 12/09/15 01/10/17 History Cyanocobalamin (Vitamin B-12) 1,000 mcg PO DAILY #30 tab 12/10/15 01/10/17 History [Vitamin B-12] Garlic 1 tab PO DAILY #0 12/10/15 01/10/17 History Trazodone HCl 50 mg PO HS #0 tab 12/10/15 01/10/17 History Vit E/Cu/Donna/Zinc/Pygeum/Saw P 1 cap PO DAILY #0 12/10/15 01/10/17 History [Prostamen Softgel] Allergies Allergy/AdvReac Type Severity Reaction Status Date / Time No Known Drug Allergies Allergy Unknown Verified 01/10/17 09:27 Exam Vital Signs: Temperature 100.4 F 01/10/17 13:28 Pulse Rate 94 01/10/17 13:28 Respiratory Rate 20 01/10/17 13:28 Blood Pressure 116/65 01/10/17 13:28 Pulse Oximetry 93 01/10/17 13:28 Height/Weight/BMI: Height 1.68 m Weight 104 kg Body Mass Index 37.0 - Constitutional Present: no acute distress, well nourished, well developed - Routine HEENT Exam Eye: Present: PERRL. Absent: conjunctival icterus ENT: Present: mucous membranes dry, oropharynx clear - Routine Neck Exam Present: supple - Routine Respiratory Exam Present: CTA bilaterally - Routine Cardiovascular Exam Present: tachycardia, irregularly irregular - Routine Abdominal Exam Present: soft, non distended, non tender. Absent: normoactive bowel sounds ( hypoactive) - Routine Extremities Exam Present: edema (1+ BLE), pulses intact. Absent: calf tenderness - Routine Skin Exam Present: dry, warm - Routine Neurological Exam Present: alert, oriented X3 (baseline), moving all extremities, vision grossly intact, hearing grossly intact, normal speech. Absent: facial asymmetry - Routine Psychiatric Exam Present: normal affect, cooperative Results - Labs CBC & Chem 7: 01/10/17 09:49 01/10/17 09:41 Assessment and Plan (1) Campylobacter diarrhea Current visit: Yes Status: Acute Assessment and Plan: ADMISSION DIAGNOSES Severe sepsis d/t lactate of 2.6; leukocytosis, bandemia Campylobacter and Norovirus diarrhea/gastroenteritis Hypernatremia, POA Chronic conditions Major neurocognitive disorder, due to Alzheimer's disease Bipolar disorder PAF on Eliquis CVA CAD, history of [place] HTN Hyperlipidemia Chronic back pain Normocytic anemia Obesity (BMI 30-39.9) PLAN Admit, observation status. PCP: Dr. Dorothy Coppola meets severe sepsis criteria because of lactate value of 2.6. SIRS = tachycardia, tachypnea, leukocytosis, and bandemia. * Per UpToDate, antibiotic treatment for Campylobacter is only indicated for people with severe disease (bloody stools, high fever, extraintestinal infection , worsening sx, or sx >1 week). At time of admission, Abdon did not have evidence of severe disease. * Repeat lactate within 6 hours, looking for downward trend. * Supportive care for Campylobacter/norovirus = IVF, Zofran. Clear liquid diet, advance as tolerated. Hypernatremia * IVF: 1/2 NS * Hold lisinopril/hctz Chronic conditions * Resume home meds * Tele d/t a-fib hx & mild rvr * High risk for delirium - Zyprexa PRN 01/10/17: Pilar 0020 Have independently interviewed and examined pt. Chart reviewed. Case discussed with ED physician, patient's sister, and my JOB DEVELOPER. Care plan developed with my supervision; agree with above. Been feeling sick the last 2 day-ab discomfort, bloating, nausea and diarrhea. Will become very weak and shaky. Oral take decreased. Has been urinating okay. Breathing stable. Not having chest pain or pressure. Lungs: decreased, no distress. CV: tachy, regular AB: soft Obese, mild distention, BS decreased EXT: no edema, SCD in place MSE: awake alert Plan: OBS. IVF for support. Clear liquids as able. Control nausea with Zofran prn. Monitor lab and vitals. May need to change to inpatient if symptoms not improving in the next 24 hours. DVT Prophylaxis: Eliquis Resuscitation Status: Full Code Hospital Course Summary Disclaimer: The visit summary below is not to be considered part of the above Progress Note. Hospital Course: 01/10/17 14:25 ADMISSION DIAGNOSES Severe sepsis d/t lactate of 2.6; leukocytosis, bandemia Campylobacter and Norovirus diarrhea Hypernatremia, POA Chronic conditions Major neurocognitive disorder, due to Alzheimer's disease Bipolar disorder PAF on Eliquis CVA CAD, history of HI HTN Hyperlipidemia Obesity (BMI 30-39.9) Chronic back pain Normocytic anemia PLAN Admit, observation status. PCP: Dr. Dorothy Coppola meets severe sepsis criteria because of lactate value of 2.6. SIRS = tachycardia, tachypnea, leukocytosis, and bandemia. * Per UpToDate, antibiotic treatment for Campylobacter is only indicated for people with severe disease (bloody stools, high fever, extraintestinal infection , worsening sx, or sx >1 week). At time of admission, Abdon did not have evidence of severe disease. * Repeat lactate within 6 hours, looking for downward trend. * Supportive care for Campylobacter/norovirus = IVF, Zofran. Clear liquid diet, advance as tolerated. Hypernatremia * IVF: 1/2 NS * Hold lisinopril/hctz Chronic conditions * Resume home meds * Tele d/t a-fib hx & mild rvr * High risk for delirium - Zyprexa PRN
[2017-01-10] MEDS ORDERED: ACETAMINOPHEN 500 MG TABLET PO PRN (14:16)
[2017-01-10] MEDS ORDERED: OLANZapine 5 MG TABLET PO PRN (14:22)
[2017-01-10] MEDS: LACTOBACILLUS (15B cfu) CAPSULE PO SCH (17:09)
[2017-01-10] MEDS ORDERED: DIVALPROEX 500 MG TABLET PO SCH (21:00)
[2017-01-10] MEDS ORDERED: TRAZODONE 50 MG TABLET PO SCH (21:00)
[2017-01-10] MEDS ORDERED: ROSUVASTATIN 10 MG TABLET PO SCH (21:00)
[2017-01-10] MEDS ORDERED: TAMSULOSIN 0.4 MG CAPSULE PO SCH (21:00)
[2017-01-10] MEDS ORDERED: GABAPENTIN 300 MG CAPSULE PO SCH (21:00)
[2017-01-10] MEDS: APIXABAN 5 MG TABLET PO SCH (21:10)
[2017-01-11 00:03] VITALS: TEMP 98.7
[2017-01-11] MEDS: 1/2 NS 1,000 ML IV SCH (03:58)
[2017-01-11] MEDS ORDERED: 1/2 NS with KCL 20mEq 1,000 ML IV SCH (07:00)
[2017-01-11 07:44] VITALS: BP 118/62; O2SAT 92
[2017-01-11] MEDS: APIXABAN 5 MG TABLET PO SCH (08:34)
[2017-01-11] MEDS: LACTOBACILLUS (15B cfu) CAPSULE PO SCH ×2 (08:34→12:11)
[2017-01-11 08:52] VITALS: PULSE 77
[2017-01-11] MEDS ORDERED: DIVALPROEX 250 MG TABLET PO SCH (09:00)
--- NOTE | 2017-01-11 12:01 | Discharge Summary ---
<Lucila Jain Charly - Last Filed: 01/11/17 11:58> Discharge Information Date of admission: 01/10/17 13:04 Anticipated date of discharge: 01/11/17 Attending Physician: Sebastien Quezada MD Primary care physician: New De La Cruz DO - Discharge Diagnosis (1) Campylobacter diarrhea Status: Acute DISCHARGE DIAGNOSES Severe sepsis d/t lactate of 2.6; leukocytosis, bandemia - resolved Campylobacter and Norovirus diarrhea/gastroenteritis Hypernatremia, POA - resolved Hypokalemia Chronic conditions Major neurocognitive disorder, due to Alzheimer's disease Bipolar disorder PAF on Eliquis CVA CAD, history of [place] HTN Hyperlipidemia Chronic back pain Normocytic anemia Obesity (BMI 30-39.9) - Laboratory Labs: 01/11/17 04:29 01/11/17 04:29 - Radiology Radiology: KUB: No obstruction or perforation. History of Present Illness HPI: Abdon Alonzo is a 71 year old male with a hx of dementia; he lives at home with his sister, Chey, who is his DPOA and primary workforce investment act career manager. A few days ago he was with family and great-grandchildren, and later found out that they were sick. Over the last 48 hours, he has had progressive GI symptoms - it started as belching in the evening of 01/08/17, and then on 01/09/17 he had diarrhea. This morning, he started to vomit and was shaky and febrile. Chey reports that he was unsteady on his feet. He complains of mouth/throat dryness but denies dysphagia. He denies any respiratory symptoms ie cough/cold/sore throat or SOA. He denies chest pain or palpitations but has a hx of an irregular heart rate. He denies abd pain or cramps. He denies seeing black/bloody stools. He denies any changes or problems urinating. Chey called the clinic today, and ED evaluation was recommended. He was mildly tachycardic (105) and tachypneic (22) on arrival, and later spiked a low-grade fever (100.4). Labs were consistent with severe sepsis with lactate of 2.6 combined with SIRS criteria of leukocytosis (WBC 16.4), bandemia (22%), and tachycardia and tachypnea. He was also mildly hypernatremic with Na of 46. GI panel was positive for norovirus and Campylobacter. He received 500 mL fluid bolus in the ED, Toradol, and Zofran. Dr. Quezada was notified and the patient was admitted to observation status. Objective Vital signs: Temperature 98.7 F 01/11/17 07:42 Pulse Rate 77 01/11/17 08:00 Respiratory Rate 20 01/11/17 07:42 Blood Pressure 118/62 01/11/17 07:42 Pulse Oximetry 92 01/11/17 07:42 Height/Weight/BMI: Height 1.68 m Weight 109.4 kg Body Mass Index 37.0 - Constitutional Present: no acute distress, well nourished, well developed - Routine HEENT Exam Eye: Absent: conjunctival icterus, scleral injection ENT: Present: mucous membranes moist - Routine Respiratory Exam Present: CTA bilaterally - Routine Cardiovascular Exam Present: irregularly irregular - Routine Abdominal Exam Present: non tender, distended (mild). Absent: normoactive bowel sounds ( hypoactive) - Routine Extremities Exam Present: edema (1+ BLE) - Routine Musculoskeletal Exam Musculoskeletal: Present: moving extremities well - Routine Skin Exam Present: intact, dry, warm - Routine Neurological Exam Present: alert, CN II-XII intact, normal speech - Routine Psychiatric Exam Present: cooperative Hospital Course This is a general summary of the patient's hospital course. For more details refer to the complete medical record. Hospital course: Abdon was admitted on 01/10/17 to observation status. Stool was positive for Campylobacter and norovirus, and even though he met diagnostic criteria for severe sepsis with lactate level of 2.6, he did not clinically have evidence of severe disease. Antibiotics were not indicated. We provided supportive care with IVF, antiemetic, and non-narcotic pain control. Lisinopril/HCTZ was held d/ t hypernatremia and dehydration; BP remained stable. By the following morning, he was eating/drinking well. He did not have any abdominal pain. He had 1 watery stool early in the morning. Leukocytosis and hypernatremia had resolved, but he was hypokalemic (K = 3.2) from IVF and GI losses. KDur was ordered. He was medically stable for discharge home. Good hand hygiene was emphasized. He should drink plenty of fluids to stay hydrated. Rx for 5 days of KDur was provided. F/U with Dr. De La Cruz in 1 week - BMP to be repeated before f/u to check on potassium level. BC were negative at time of discharge. He was discharged home with his sister Chey in stable condition. Time spent with patient: greater than 35 minutes DVT Prophylaxis: Eliquis Discharge Plan - Discharge Disposition Discharge Date: 01/11/17 Disposition: 01 Discharged Home, Self-Care *Condition: Stable Reason For Visit (Visit label in EMR): Campylobacter and Norovirus gastroenteritis - Discharge Medications *Discharge Medications: New Potassium Chloride [K-Dur] 1 tab PO WB #5 tab Continue Lisinopril/Hydrochlorothiazide [Lisinopril-Hctz 20-12.5 mg Tab] 1 tab PO DAILY #0 tab Gabapentin 300 mg PO HS #0 cap Apixaban [Eliquis] 5 mg PO BID #60 Cyanocobalamin (Vitamin B-12) [Vitamin B-12] 1,000 mcg PO DAILY #30 tab Vit E/Cu/Donna/Zinc/Pygeum/Saw P [Prostamen Softgel] 1 cap PO DAILY #0 Cod Liver Oil 1 cap PO DAILY #0 Tamsulosin HCl 0.4 mg PO HS #0 Rosuvastatin [Crestor] 10 mg PO HS #0 Garlic 1 tab PO DAILY #0 Trazodone HCl 50 mg PO HS #0 tab Divalproex [Depakote] 250 mg PO DAILY #30 Divalproex [Depakote] 500 mg PO HS #30 - Discharge Packet/Instructions *Diet: Small frequent meals, bland diet. Sports drinks for hydration if you continue to have diarrhea. *Activity: No restrictions. *Pain Management/Treatment: Tylenol and gabapentin. *Wound Care: N/A *Expected Signs/Symptoms: You will probably have diarrhea for a few more days ( even up to a week or longer). Tduy-nas-uslwapp diarrhea agents are not usually recommended, but if diarrhea is uncontrolled, you should talk to Dr. De La Cruz about medication recommendations. *Notify Physician if: Increased frequency of diarrhea, blood in your stools, abdominal cramping, fever, weakness/dizziness, onset of vomiting or bloody vomit , altered mental status, or any new symptoms. *During Business Hours Contact: [facility] *After Business Hours Contact: The on-call provider for [facility]. *Pending Lab/Results: Follow up w/your PCP Outpatient Orders: BMP - Basic Metabolic - [facility] Time Frame: 3 Days, Location: Determined By Patient - Referrals/Follow Up *Referrals/Follow Up: New De La Cruz DO [Family Provider] - 1 Week (APPOITMENT ON 01/21 AT 08AM.) - Patient Handouts - Dismissal Complete Discharge Instructions are:: Incomplete <Sebastien Quezada - Last Filed: 01/11/17 12:55> Discharge Information Date of admission: 01/10/17 13:04 Attending Physician: Sebastien Quezada MD Primary care physician: New De La Cruz DO - Discharge Diagnosis (1) Campylobacter diarrhea Status: Acute - Laboratory Labs: 01/11/17 04:29 01/11/17 04:29 Objective Vital signs: Temperature 98.7 F 01/11/17 07:42 Pulse Rate 77 01/11/17 08:00 Respiratory Rate 20 01/11/17 07:42 Blood Pressure 118/62 01/11/17 07:42 Pulse Oximetry 92 01/11/17 07:42 Height/Weight/BMI: Height 1.68 m Weight 109.4 kg Body Mass Index 37.0 Hospital Course This is a general summary of the patient's hospital course. For more details refer to the complete medical record. Discharge Plan - Dismissal Complete Discharge Instructions are:: Complete Attestation Narriative - Attestation Attestation Narrative: 01/11/17 12:52 Have independently interviewed and examined patient prior to discharge. Chart reviewed. Case discussed with my APNR. Care plan developed with my supervision; agree with above. Doing well. Not having ab pain or discomfort. Appetite improving. No nausea. Stools starting to form. Breathing well. Lungs: decreased, no distress CV: regular AB: soft obese nt/nd MSE: awake alert appropriate Plan: Clinically significantly improved. WBC normalized. Oral intake improving. With improvement of medical status will discharge to home. See orders for details.
== END 2017-01-11 13:44 | disposition home or self-care (01) ==
LOC: MED 08:58 → ED 08:58 → MED 13:22
PROVIDERS: ADMIT Hospitalist; ATTEND Hospitalist

== ENCOUNTER 2017-02-17 12:45 | Inpatient (IN) ==
--- OUTSIDE RECORDS SUMMARY | 2017-02-17 13:34 | External Medical Summary ---
:1945 [facility] Team Providers Name Role Phone New [...] Dosage System Date Date Cod Liver Oil [facility] [address]-46 Orally not defined Trazodone HCl [facility] [address]-21 100 MG Orally 1.5 Once a day at tablets at bedtime bedtime Vitamin B 12 [facility] 65533-26605 250 MCG Orally not defined Escitalopram [facility] [address]-09 10 MG Orally 1 tablet Oxalate Once a day Melatonin [facility] [address]-25 3 MG Orally 1 tablet Once a day at bedtime as needed with food Crestor [facility] 14736314369 10MG Orally 10 mg Once a day Amlodipine [facility] [address]-95 10 MG Orally 1 tablet Besylate Once a day Aspirin [facility] 89797-47222 81 MG Orally 1 tablet Once a day Lisinopril-Hydr [facility] [address]-17 20-12.5 MG 1 tablet ochlorothiazide Orally Once a day Potassimin [facility] [address]-79 75 MG Orally 1 tablet Once a day Tamsulosin HCl [facility] 91900811758 0.4MG TAKE ONE CAPSULE BY MOUTH ONCE DAILY 30 MINUTES AFTER THE SAME MEAL EACH DAY. Doxycycline [facility] [address]-88 100 MG Orally 1 tablet Hyclate Once a day Garlic [facility] 51747-87079 1000 MG Orally not defined Procedures Procedure Coding System Code Date OFFICE VISIT, EST-LOW COMPLEXITY (15 MIN.) CPT-4 43616 Oct 02, 2015 [facility] visit Established Patient CPT-4 G0467 Oct 02, 2015 Vital Signs Date/Time: Oct 02, 2015 Temperature 96.8 F Height 65 in Weight 219.8 lbs Blood Pressure Diastolic 86 mm Hg Blood Pressure Systolic 134 mm Hg Cardiac Monitoring Heart Rate 66 /min BMI 36.57 Index Respiratory Rate 16 /min Results No Known Results Summary Purpose eClinicalWorks Submission
--- OUTSIDE RECORDS SUMMARY | 2017-02-17 13:34 | External Medical Summary ---
:1945 [facility] Team Providers Name Role Phone [...] Date Lisinopril-Hydr [facility] [address]-76 20-12.5 MG 1 tablet ochlorothiazide Orally Once a day Tamsulosin HCl [facility] 65942421626 0.4MG HS TAKE ONE CAPSULE BY MOUTH Risperidone [facility] [address]-72 0.5 MG Orally Nov 10, 1 tablet every 12 hours. 2015 Crestor [facility] [address]-27 5 MG Orally Nov 04, 1 tablet Once a day HS 2015 Amlodipine [facility] [address]-04 10 MG Orally 1 tablet Besylate Once a day Escitalopram [facility] [address]-44 20 MG Orally 1 tablet Oxalate Once a day Risperidone [facility] [address]-78 0.5 MG Orally Nov 04, 1 tablet BID 2015 Aspirin [facility] [address]30-71058 81 MG Orally 1 tablet Once a day Aricept [facility] [address]-84 10 MG Orally Nov 04, 1 tablet Once a day 2016 at bedtime Trazodone HCl [facility] [address]-74 50 MG Orally 1 tablet Once a day at at bedtime bedtime Procedures Procedure Coding System Code Date OFFICE VISIT, EST-LOW COMPLEXITY (15 MIN.) CPT-4 83518 Nov 11, 2015 [facility] visit Established Patient CPT-4 G0467 Nov 11, [...]
--- OUTSIDE RECORDS SUMMARY | 2017-02-17 13:34 | External Medical Summary ---
[...] Status Dosage System Date Vitamin B 12 [facility] 04755-17 250 MCG Orally not defined 581 Potassimin [facility] 40872-19 75 MG Orally 1 tablet 43-01 Once a day Crestor [facility] 06412-59 10 MG Orally 10 mg in 51-39 Once a day the morning and 5 mg at night Garlic [facility] 22995-58 1000 MG Orally not defined 533 Lisinopril-[place] [facility] 62405-56 20-12.5 MG 1 tablet chlorothiazide 36-01 Orally Once a day Tamsulosin HCl [facility] 97502-20 0.4 MG Orally Jan 14 1 capsule 38-01 Once a day 2014 30 minutes after the same meal each day Escitalopram [facility] 72333-82 10 MG Orally 1 tablet Oxalate 51-01 Once a day Amlodipine [facility] 44723-30 10 MG Orally 1 tablet Besylate 02-20 Once a day Melatonin [facility] 38816-83 3 MG Orally Once 1 tablet at 12-08 a day bedtime [place] [address]-00 Orally not defined 46-01 Trazodone HCl [facility] 49177-14 50 MG Orally 1 tablet at 37-01 Once a day bedtime Procedures Procedure Coding System Code Date OFFICE VISIT, EST-LOW COMPLEXITY (15 MIN.) CPT-4 99581 August 02, 2014 [facility] visit Established Patient CPT-4 G0467 August 02, 2014 Vital Signs Date/Time: August 02, 2014 Height 65 in Weight 205 lbs Temperature 98.1 F Blood Pressure Diastolic 58 mm Hg Blood Pressure Systolic 120 mm Hg Cardiac Monitoring Heart Rate 60 /min BMI 34.11 Index Respiratory Rate 12 /min Results No Known Results Summary Purpose eClinicalWorks Submission
--- OUTSIDE RECORDS SUMMARY | 2017-02-17 13:34 | External Medical Summary ---
[...] End Status Dosage System Date Date Melatonin [facility] [address]-62 3 MG Orally 1 tablet at Once a day bedtime as needed with food Tamsulosin HCl [facility] 25967931836 0.4MG TAKE ONE CAPSULE BY MOUTH ONCE DAILY 30 MINUTES AFTER THE SAME MEAL EACH DAY. Viagra [facility] [address]-89 25 MG Orally May 1 tablet as Once a day , needed before 2016 sexual intercourse [address]opram [facility] [address]-08 10 MG Orally 1 tablet Oxalate Once a day Garlic [facility] [address]4785-25799 1000 MG Orally not defined Crestor [facility] 29503172329 10MG Orally 10 mg Once a day Lisinopril-Hydr [facility] [address]-57 20-12.5 MG 1 tablet ochlorothiazide Orally Once a day Vitamin B [address] [facility] [address]180 250 MCG Orally not defined Trazodone HCl [facility] [address]-94 50 MG Orally 1 tablet at Once a day bedtime Aspirin [facility] [address]41-49837 81 MG Orally 1 tablet Once a day Amlodipine [facility] [address]-23 10 MG Orally 1 tablet Besylate Once a day Cod Liver Oil [facility] [address]-87 Orally not defined Potassimin [facility] [address]-73 75 MG Orally 1 tablet Once a day Procedures Procedure Coding System Code Date OFFICE VISIT, EST-MOD. COMPLEXITY (25 MIN) CPT-4 56668 May 22, 2015 [facility] visit Established Patient CPT-4 G0467 May 22, 2015 Vital Signs Date/Time: May 22, 2015 BMI 37.07 Index Height 65 in Weight 222.8 lbs Respiratory Rate 16 /min Blood Pressure Diastolic 80 mm Hg Blood Pressure Systolic 116 mm Hg Cardiac Monitoring Heart Rate 81 /min Oximetry 97 % Results No Known Results Summary Purpose eClinicalWorks Submission
--- OUTSIDE RECORDS SUMMARY | 2017-02-17 13:34 | External Medical Summary ---
:1945 Author Organization eClinicalWorks Care Team Providers Name Role Phone Elsi Luna Provider Role Unavailable Allergies No Known Allergies Problems No Known Problems Medications Medication Code Code Instructions Start End Date Status Dosage System Date Crestor NDC 02463-61 5 MG Orally Once 1 tablet 55-90 a day Trazodone HCl NDC 19694-59 50 MG Orally 1 tablet at 37-01 Once a day bedtime Lisinopril-[place] NDC 74147-13 20-12.5 MG 1 tablet chlorothiazide 36-01 Orally Once a day Escitalopram NDC 83598-96 10 MG Orally 1 tablet Oxalate 51-01 Once a day Tamsulosin HCl NDC 40045-66 0.4 MG Orally Jan 14, capsule 38-01 Once a day 2014 30 minutes after the [place] [address]-05 10 MG Orally 1 tablet Besylate 02-20 Once a day Results No Known Results Summary Purpose eClinicalWorks Submission
--- OUTSIDE RECORDS SUMMARY | 2017-02-17 13:34 | External Medical Summary ---
:1945 [email or web address] Care Team Providers Name Role Phone New [...] End Date Status Dosage System Date Amlodipine [facility] 05898-18 10 MG Orally 1 tablet Besylate 02-20 Once a day Escitalopram [facility] 28370-96 10 MG Orally 1 tablet Oxalate 51-01 Once a day Garlic [facility] 27669-87 1000 MG Orally not defined 533 Potassimin [facility] 30784-09 75 MG Orally 1 tablet 43-01 Once a day Tamsulosin HCl [facility] 00889-95 0.4 MG Orally Jan 08, 1 capsule 38-01 Once a day 2014 30 minutes after the same meal each day Crestor [facility] 70155-26 10 MG Orally 10 mg in 51-39 Once a day the morning and 5 [place] [address]-18 Orally not defined 46-01 Melatonin [facility] 54039-26 3 MG Orally Once 1 tablet at 12-08 a day bedtime as needed with food Vitamin B 12 [facility] 15472-15 250 MCG Orally not defined 581 Trazodone HCl [facility] 44847-53 50 MG Orally 1 tablet at 37-01 Once a day bedtime Lisinopril-[place] [facility] 92803-90 20-12.5 MG 1 tablet chlorothiazide 36-01 Orally Once a day Procedures Procedure Coding System Code Date OFFICE VISIT, EST-LOW COMPLEXITY (15 MIN.) CPT-4 51866 August 30, 2014 [facility] visit Established Patient CPT-4 [...]
--- OUTSIDE RECORDS SUMMARY | 2017-02-17 13:34 | External Medical Summary ---
[...] End Status Dosage System Date Date Aspirin [facility] 28586-18861 81 MG Orally 1 tablet Once a day Crestor [facility] [address]-85 5 MG Orally Nov 04, 1 tablet Once a day HS 2016 Gabapentin [facility] [address]-87 300 MG Orally 1 capsule at HS Aricept [facility] [address]-63 10 MG Orally Nov 04, 1 tablet Once a day 2016 at bedtime Escitalopram [facility] [address]-29 20 MG Orally 1 tablet Oxalate Once a day Eliquis [facility] 3151-7745-26 5mg PO BID not defined Amlodipine [facility] [address]-00 10 MG Orally 1 tablet Besylate Once a day Lisinopril-Hydr [facility] [address]-98 20-12.5 MG 1 tablet ochlorothiazide Orally Once a day Trazodone HCl [facility] [address]-08 50 MG Orally 1 tablet Once a day at at bedtime bedtime Tamsulosin HCl [facility] 16018415425 0.4MG HS TAKE ONE CAPSULE BY MOUTH Procedures Procedure Coding System Code Date OFFICE VISIT, EST-LOW COMPLEXITY (15 MIN.) CPT-4 02555 Dec 19, 2015 Fluzone HIGH DOSE (age 65 and older) CPT-4 14526 Dec 19, 2015 [facility] visit Established Patient CPT-4 G0467 Dec 19, 2015 ADMINISTRATION, 1ST IMMUNIZATION CPT-4 00267 Dec 19, 2015 [facility] FLU VAC NO [...]
--- OUTSIDE RECORDS SUMMARY | 2017-02-17 13:34 | External Medical Summary ---
[...] Start End Date Status Dosage Date Crestor [facility] 62608-004 5 MG Orally Once 1 tablet 5-90 a day Lisinopril-Hydr [facility] 45553-447 20-12.5 MG 1 tablet ochlorothiazide 6-01 Orally Once a day Aspirin [facility] 18777-939 81 MG Orally 1 tablet 05 Once a day Amlodipine [facility] 75213-513 10 MG Orally 1/2 tablet Besylate 2-20 Once a day Procedures Procedure Coding System Code Date [facility] visit Established Patient CPT-4 G0467 May 31, 2014 OFFICE VISIT, EST-LOW COMPLEXITY (15 MIN.) CPT-4 66739 May 31, 2014 [facility] visit New Patient CPT-4 G0466 May 31, 2014 Vital Signs Date/Time: May 31, 2014 Height 65 in Weight 217.12 lbs Temperature 98.2 F Blood Pressure Diastolic 60 mm Hg Blood Pressure Systolic 128 mm Hg Cardiac Monitoring Heart Rate 68 /min BMI 36.13 Index Respiratory Rate 16 /min Results No Known Results Summary Purpose eClinicalWorks Submission
--- OUTSIDE RECORDS SUMMARY | 2017-02-17 13:34 | External Medical Summary | Clinical Summary ---
:1945 Author Organization [facility] Address [address] [place] [address] Phone Care Team Providers Name Role Phone Unavailable Primary Care Provider Unavailable Source Comments Some departments are not documenting in the electronic medical record. If you do not see the information that you expected, contact Release of Information in the Health Information Management department at [phone] for further assistance in locating additional records.[facility] Allergies No Known Allergies Current Medications Prescription [...] artery bypass grafting surgery in [address] [facility]. WADE to the LAD, saphenous vein graft to the obtuse marginal. b. Cardiac catheterization 02/2008 - Diffuse disease of the solomon coronary arteries. Ejection fraction 45%. WADE to [...] the posterobasal segment. Coronary anatomy in the solomon system revealed severe disease with an 80% [...]
--- OUTSIDE RECORDS SUMMARY | 2017-02-17 13:34 | External Medical Summary ---
:1945 Author Organization eClinicalWorks Care Team Providers Name Role Phone Elsi Luna Provider Role Unavailable Allergies No Known Allergies Problems No Known Problems Medications Medication Code System Code Instructions Start Date End Date Status Dosage Cephalexin [facility] [address] 500 MG Orally TID June 13, June 27, 1 tablet -2014 Results No Known Results Summary Purpose [employer] Submission
--- OUTSIDE RECORDS SUMMARY | 2017-02-17 13:35 | External Medical Summary ---
[...] End Date Status [place] [address]-308 20-12.5 MG 1 tablet ochlorothiazide 6-01 Orally Once a day Atenolol NDC 92237-989 5 MG Orally Once 1 tablet 2-01 a day Crestor NDC 42769-577 5 MG Orally Once 1 tablet 5-90 a day Aspirin [facility] 69124-843 50 MG Orally 1 tablet 40 Once a day Amlodipine NDC 53071-237 10 MG Orally 1/2 tablet Besylate 2-20 Once a day Procedures Procedure Coding System Code Date OFFICE VISIT, ACCOUNTS RECEIVABLE SPECIALIST-LOW COMPLEXITY (20 MIN.) CPT-4 35585 May 27, 2014 [facility] visit New Patient CPT-4 G0466 May 27, 2014 Vital Signs Date/Time: May 27, 2014 Height 65 in Weight 220.8 lbs Temperature 97.9 F Blood Pressure Diastolic 60 mm Hg Blood Pressure Systolic 112 mm Hg Cardiac Monitoring Heart Rate 60 /min BMI 36.74 Index Respiratory Rate 16 /min Results No Known Results Summary Purpose eClinicalWorks Submission
--- OUTSIDE RECORDS SUMMARY | 2017-02-17 13:35 | External Medical Summary ---
:1947 Author Organization eClinicalWorks Care Team Providers Name Role Phone New De La Cruz Provider Role Unavailable Allergies No Known Allergies Problems No Known Problems Medications Medication Code Code Instructions Start End Date Status Dosage System Date Tamsulosin HCl [facility] 38025-36 0.4 MG Orally Jan 27April 26, capsule 38-01 Once a day 2014 2015 30 minutes after the same meal each day Results No Known Results Summary Purpose eClinicalWorks Submission
--- OUTSIDE RECORDS SUMMARY | 2017-02-17 13:35 | External Medical Summary ---
:1947 Author Organization eClinicalWorks Care Team Providers Name Role Phone New De La Cruz Provider Role Unavailable Allergies No Known Allergies Problems No Known Problems Medications Medication Code System Code Instructions Start End Date Status Dosage Date Trazodone HCl [facility] 02071-171 50 MG Orally 1 tablet at 7-01 Once a day bedtime Results No Known Results Summary Purpose eClinicalWorks Submission
--- OUTSIDE RECORDS SUMMARY | 2017-02-17 13:35 | External Medical Summary ---
:1945 Author Organization eClinicalWorks Care Team Providers Name Role Phone New De La Cruz Provider Role Unavailable Allergies No Known Allergies Problems No Known Problems Medications Medication Code System Code Instructions Start Date End Date Status Dosage [facility] [address] 10 MG Orally Once 10 mg -39 a day Results No Known Results Summary Purpose eClinicalWorks Submission
--- OUTSIDE RECORDS SUMMARY | 2017-02-17 13:35 | External Medical Summary ---
:1945 [facility] Team Providers Name Role Phone New [...] Status Dosage System Date Date Trazodone HCl [facility] [address]-17 50 MG Orally 1 tablet Once a day at at bedtime bedtime Lisinopril-Hydr [facility] [address]-72 20-12.5 MG 1 tablet ochlorothiazide Orally Once a day Escitalopram [facility] [address]-56 20 MG Orally 1 tablet Oxalate Once a day Crestor [facility] [address]-14 5 MG Orally Nov 04, 1 tablet Once a day HS 2016 Tamsulosin HCl [facility] 58336406357 0.4MG HS TAKE ONE CAPSULE BY MOUTH Aricept [facility] [address]-78 10 MG Orally Nov 04, 1 tablet Once a day 2016 at bedtime Risperidone [facility] [address]-41 0.5 MG Orally Nov 04, 1 tablet BID 2015 Aspirin [facility] 27[address]-93287 81 MG Orally 1 tablet Once a day Procedures Procedure Coding System Code Date OFFICE VISIT, EST-LOW COMPLEXITY (15 MIN.) CPT-4 25876 Nov 06, 2015 [facility] visit Established Patient CPT-4 G0467 Nov 06, [...]
--- OUTSIDE RECORDS SUMMARY | 2017-02-17 13:35 | External Medical Summary ---
[...] System Date Date Cod Liver Oil [facility] [address]-60 Orally not defined Escitalopram [facility] [address]-43 10 MG Orally 1 tablet Oxalate Once a day Amlodipine [facility] [address]-21 10 MG Orally 1 tablet Besylate Once a day Melatonin [facility] [address]-11 3 MG Orally 1 tablet Once a day at bedtime as needed with food Potassimin [facility] [address]-83 75 MG Orally 1 tablet Once a day Crestor [facility] 30918119452 10MG Orally 10 mg Once a day Trazodone HCl [facility] [address]-56 100 MG Orally 1.5 Once a day at tablets at bedtime bedtime Lisinopril-Hydr [facility] [address]-12 20-12.5 MG 1 tablet ochlorothiazide Orally Once a day Aspirin [facility] 66[address]-81021 81 MG Orally 1 tablet Once a day Tamsulosin HCl [facility] 22060886738 0.4MG TAKE ONE CAPSULE BY MOUTH ONCE DAILY 30 MINUTES AFTER THE SAME MEAL EACH DAY. Doxycycline [facility] [address]-58 100 MG Orally 1 tablet Hyclate Once a day Garlic [facility] [address]-13237 1000 MG Orally not defined Vitamin B 12 [facility] [address]0939-[address]28 250 MCG Orally not defined Procedures Procedure Coding System Code Date OFFICE VISIT, EST-LOW COMPLEXITY (15 MIN.) CPT-4 94605 Oct 10, 2015 [facility] visit Established Patient CPT-4 G0467 Oct 10, [...]
--- OUTSIDE RECORDS SUMMARY | 2017-02-17 13:35 | External Medical Summary ---
[...] Status Dosage System Date Vitamin B 12 [facility] 93350-36 250 MCG Orally not defined 581 Potassimin [facility] 18047-53 75 MG Orally 1 tablet 43-01 Once a day Crestor [facility] 95566-50 10 MG Orally 10 mg in 51-39 Once a day the morning and 5 mg at night Garlic [facility] 18460-53 1000 MG Orally not defined 533 Lisinopril-[place] [facility] 58911-51 20-12.5 MG 1 tablet chlorothiazide 36-01 Orally Once a day Tamsulosin HCl [facility] 43236-86 0.4 MG Orally Jan 14 1 capsule 38-01 Once a day 2014 30 minutes after the same meal each day Escitalopram [facility] 94871-80 10 MG Orally 1 tablet Oxalate 51-01 Once a day Amlodipine [facility] 80656-31 10 MG Orally 1 tablet Besylate 02-20 Once a day Melatonin [facility] 64673-35 3 MG Orally Once 1 tablet at 12-08 a day bedtime [place] [address]-40 Orally not defined 46-01 Trazodone HCl [facility] 69906-91 50 MG Orally 1 tablet at 37-01 Once a day bedtime Procedures Procedure Coding System Code Date OFFICE VISIT, EST-LOW COMPLEXITY (15 MIN.) CPT-4 16119 August 02, 2014 [facility] visit Established Patient CPT-4 G0467 [...]
--- OUTSIDE RECORDS SUMMARY | 2017-02-17 13:35 | External Medical Summary ---
:1945 Author Organization eClinicalWorks Care Team Providers Name Role Phone New De La Cruz Provider Role Unavailable Allergies No Known Allergies Problems No Known Problems Medications Medication Code System Code Instructions Start Date End Date Status Dosage [facility] 34579-802 10 MG Orally Once 10 mg in 1-39 a day the morning and 5 mg at night Results No Known Results Summary Purpose eClinicalWorks Submission
--- OUTSIDE RECORDS SUMMARY | 2017-02-17 13:35 | External Medical Summary ---
:1945 [facility] Care Team Providers Name Role Phone New [...] End Date Status Dosage System Date Melatonin [facility] 84528-18 3 MG Orally Once 1 tablet 12-08 a day at bedtime [place] [address]-94 Orally not 46-01 defined Amlodipine [facility] 83625-88 10 MG Orally 1 tablet Besylate 02-20 Once a day Crestor [facility] 28261-90 10 MG Orally 10 mg 51-39 Once a day Garlic [facility] 12460-93 1000 MG Orally not 533 defined Trazodone HCl [facility] 63002-21 50 MG Orally 1 tablet 37-01 Once a day at bedtime Potassimin [facility] 27514-74 75 MG Orally 1 tablet 43-01 Once a day Vitamin B 12 [facility] 99787-64 250 MCG Orally not 581 defined Lisinopril-[place] [facility] 32886-92 20-12.5 MG 1 tablet chlorothiazide 36-01 Orally Once a day Escitalopram [facility] 78941-88 10 MG Orally 1 tablet Oxalate 51-01 Once a day Aspirin [facility] 94600-69 81 MG Orally 1 tablet 805 Once a day Tamsulosin HCl [facility] 48344-35 0.4 MG Orally Jan 27, April 26, 1 capsule 38-01 Once a day 2014 2015 30 minutes after the same meal each day Procedures Procedure Coding System Code Date OFFICE VISIT, EST-LOW COMPLEXITY (15 MIN.) CPT-4 74780 Mar 21, 2015 [facility] visit Established Patient CPT-4 G0467 Mar 21, 2015 Vital Signs Date/Time: Mar 21, 2015 Height 65 in Weight 214.12 lbs Temperature 98.0 F Blood Pressure Diastolic 58 mm Hg Blood Pressure Systolic 122 mm Hg Cardiac Monitoring Heart Rate 60 /min BMI 35.63 Index Respiratory Rate 16 /min Results No Known Results Summary Purpose eClinicalWorks Submission
--- OUTSIDE RECORDS SUMMARY | 2017-02-17 13:35 | External Medical Summary ---
[...] Status Dosage System Date Date Tamsulosin HCl [facility] 34701709511 0.4MG TAKE ONE CAPSULE BY MOUTH ONCE DAILY 30 MINUTES AFTER THE SAME MEAL EACH DAY. Amlodipine [facility] [address]-11 10 MG Orally 1 tablet Besylate Once a day Trazodone HCl [facility] [address]-90 50 MG Orally 1 tablet Once a day at at bedtime bedtime Escitalopram [facility] [address]-70 10 MG Orally 1 tablet Oxalate Once a day Lisinopril-Hydr [facility] [address]-34 20-12.5 MG 1 tablet ochlorothiazide Orally Once a day Procedures Procedure Coding System Code Date OFFICE VISIT, EST-LOW COMPLEXITY (15 MIN.) CPT-4 12564 Oct 30, 2015 [facility] visit Established Patient CPT-4 G0467 Oct 30, [...]
--- OUTSIDE RECORDS SUMMARY | 2017-02-17 13:35 | External Medical Summary ---
[...] End Status Dosage System Date Date Escitalopram [facility] [address]-27 20 MG Orally 1 tablet Oxalate Once a day Crestor [facility] [address]-34 5 MG Orally Nov 04, 1 tablet Once a day HS 2015 Aricept [facility] [address]-03 10 MG Orally Nov 04, 1 tablet Once a day 2015 at bedtime Tamsulosin HCl [facility] 22227669789 0.4MG HS TAKE ONE CAPSULE BY MOUTH Aspirin [facility] 46419-00983 81 MG Orally 1 tablet Once a day Risperidone [facility] [address]-76 0.5 MG Orally Nov 04, 1 tablet BID 2015 Results No Known Results Summary Purpose eClinicalWorks Submission
--- OUTSIDE RECORDS SUMMARY | 2017-02-17 13:35 | External Medical Summary ---
:1945 Author Organization eClinicalWorks Care Team Providers Name Role Phone New De La Cruz Provider Role Unavailable Allergies No Known Allergies Problems Problem Type Condition Code Onset Dates Condition Status Problem Impotence of organic origin 607.84 Active Medications Medication Code Code Instructions Start End Status Dosage System Date Date Garlic [facility] 59548-46470 1000 MG Orally not defined Escitalopram [facility] [address]-86 10 MG Orally 1 tablet Oxalate Once a day Vitamin B 12 [facility] 18828-70666 250 MCG Orally not defined Viagra [facility] [address]-09 25 MG Orally May 1 tablet as Once a day 14, needed before 2016 sexual intercourse Cod Liver Oil [facility] [address]-32 Orally not defined Crestor [facility] 48857808750 10MG Orally 10 mg Once a day Tamsulosin HCl [facility] 90243857596 0.4MG TAKE ONE CAPSULE BY MOUTH ONCE DAILY 30 MINUTES AFTER THE SAME MEAL EACH DAY. Lisinopril-Hydr [facility] [address]-85 20-12.5 MG 1 tablet ochlorothiazide Orally Once a day Trazodone HCl [facility] [address]-26 50 MG Orally 1 tablet at Once a day bedtime Aspirin [facility] 73904-92113 81 MG Orally 1 tablet Once a day Amlodipine [facility] [address]-30 10 MG Orally 1 tablet Besylate Once a day Melatonin [facility] [address]-15 3 MG Orally 1 tablet at Once a day bedtime as needed with food Potassimin [facility] [address]-69 75 MG Orally 1 tablet Once a day Results No Known Results Summary Purpose eClinicalWorks Submission
--- OUTSIDE RECORDS SUMMARY | 2017-02-17 13:35 | External Medical Summary ---
[...] End Date [place] [address]-63 3 MG Orally Once 1 tablet at 12-08 a day bedtime [place] [address]-72 500 MG Orally June 13June 27, 1 tablet 47-01 TID 2014 2014 Crestor NDC 83216-91 5 MG Orally Once 1 tablet 55-90 a day Lisinopril-Hydr NDC 69484-59 20-12.5 MG 1 tablet ochlorothiazide 36-01 Orally Once a day Amlodipine NDC 52116-32 10 MG Orally 1 tablet Besylate 02-20 [place] [address]-06 7.5-325 MG June 12, July 12, 1 tablet as 51-30 Orally every 6 2014 2014 needed hrs Procedures Procedure Coding System Code Date OFFICE VISIT, EST-LOW COMPLEXITY (15 MIN.) CPT-4 12736 June 18, 2014 Vital Signs Date/Time: June 18, 2014 Height 65 in Weight 208.4 lbs Temperature 97.9 F Blood Pressure Diastolic 68 mm Hg Blood Pressure Systolic 130 mm Hg Cardiac Monitoring Heart Rate 70 /min BMI 34.68 Index Oximetry 97 % Respiratory Rate 18 /min Results No Known Results Summary Purpose eClinicalWorks Submission
--- OUTSIDE RECORDS SUMMARY | 2017-02-17 13:35 | External Medical Summary ---
[...] Start End Date Status Dosage Date Amlodipine [facility] 91463-389 10 MG Orally 1 tablet Besylate 2-20 Once a day Crestor [facility] 63418-510 5 MG Orally Once 1 tablet 5-90 a day Lisinopril-Hydr [facility] 90315-426 20-12.5 MG 1 tablet ochlorothiazide 6-01 Orally Once a day [place] [facility] 72359-781 7.5-325 MG June 12, July 12, 1 tablet 1-30 Orally every 6 2014 2014 as needed hrs Procedures Procedure Coding System Code Date OFFICE VISIT, EST-LOW COMPLEXITY (15 MIN.) CPT-4 56200 June 12, 2014 Vital Signs Date/Time: June 12, 2014 Height 65 in Weight 210 lbs Temperature 98.4 F Blood Pressure Diastolic 69 mm Hg Blood Pressure Systolic 135 mm Hg Cardiac Monitoring Heart Rate 70 /min BMI 34.94 Index Oximetry 94 % Respiratory Rate 70 /min Results No Known Results Summary Purpose eClinicalWorks Submission
--- OUTSIDE RECORDS SUMMARY | 2017-02-17 13:35 | External Medical Summary ---
[...] End Status Dosage System Date Date [place]y [facility] [address]8027-92447 1000 MG Orally not defined Tamsulosin HCl [facility] 46646328976 0.4MG TAKE ONE CAPSULE BY MOUTH ONCE DAILY 30 MINUTES AFTER THE SAME MEAL EACH DAY. Aspirin [facility] 45[address]-15104 81 MG Orally 1 tablet Once a day Crestor [facility] 31893907764 10MG Orally 10 mg Once a day Melatonin [facility] [address]-89 3 MG Orally 1 tablet Once a day at bedtime as needed with food Trazodone HCl [facility] [address]-79 100 MG Orally 1.5 Once a day at tablets at bedtime bedtime Escitalopram [facility] [address]-72 10 MG Orally 1 tablet Oxalate Once a day Vitamin B 12 [facility] 26779-42571 250 MCG Orally not defined Potassimin [facility] [address]-26 75 MG Orally 1 tablet Once a day Lisinopril-Hydr [facility] [address]-00 20-12.5 MG 1 tablet ochlorothiazide Orally Once a day Doxycycline [facility] [address]-08 100 MG Orally 1 tablet Hyclate Once a day Cod Liver Oil [facility] [address]-69 Orally not defined Amlodipine [facility] [address]-79 10 MG Orally 1 tablet Besylate Once a day Results No Known Results Summary Purpose eClinicalWorks Submission
--- OUTSIDE RECORDS SUMMARY | 2017-02-17 13:35 | External Medical Summary ---
[...] Status Dosage System Date Vitamin B 12 [facility] 68611-62 250 MCG Orally not defined [address] [facility] 79816-94 75 MG Orally 1 tablet 43-[address] [facility] 58526-90 10 MG Orally 10 mg in 51-39 Once a day the morning and 5 mg at night Garlic [facility] 09988-79 1000 MG Orally not defined 533 Lisinop[address]-Terrell [facility] 65146-88 20-12.5 MG 1 tablet chlorothiazide 36-01 Orally Once a day Tamsulosin HCl [facility] 59226-66 0.4 MG Orally Jan 14 1 capsule 38-01 Once a day 2014 30 minutes after the same meal each day Escitalopram [facility] 18794-54 10 MG Orally 1 tablet Oxalate 51-01 Once a day Amlod[address] [facility] 85712-72 10 MG Orally 1 tablet Besylate 02-20 Once a day Melatonin [facility] 38507-72 3 MG Orally Once 1 tablet at 12-08 a day bedtime [place] [address]-18 Orally not defined 46-[address] [facility] 30273-79 50 MG Orally 1 tablet at 37-01 Once a day bedtime Procedures Procedure Coding System Code Date OFFICE VISIT, EST-LOW COMPLEXITY (15 MIN.) CPT-4 71863 August 02, 2014 [facility] visit Established Patient CPT-4 G0467 August 02, 2014 Vital Signs Date/Time: August 02, 2014 Height 65 in Weight 205 lbs Temperature 98.1 F Blood Pressure Diastolic 58 mm Hg Blood Pressure Systolic 120 mm Hg Cardiac Monitoring Heart Rate 60 /min BMI 34.11 Index Respiratory Rate 12 /min Results No Known Results Summary Purpose eClinicalWorks Submission
--- OUTSIDE RECORDS SUMMARY | 2017-02-17 13:35 | External Medical Summary ---
[...] Start End Date Status Dosage System Date Lisinopril-[facility] 2001 51083-26 20-12.5 MG 1 tablet chlorothiazide 36-01 Orally Once a day [facility] 2001 12379-76 7.5-325 MG June 12, July 12, 1 tablet as 51-30 Orally every 6 2014 2014 needed hrs Vitamin B 12 [facility] 35141-90 250 MCG Orally not defined 581 Tamsulosin HCl [facility] 16410-12 0.4 MG Orally 1 capsule 38-01 Once a day 30 minutes after the same meal each day Potassimin [facility] 23678-70 75 MG Orally 1 tablet 43-01 Once a day Melatonin [facility] 23351-10 3 MG Orally Once 1 tablet at 12-08 a day bedtime as needed with food Garlic [facility] 58531-97 1000 MG Orally not defined 533 Trazodone HCl [facility] 55295-79 50 MG Orally 1 tablet at 37-01 Once a day bedtime Escitalopram [facility] 67961-51 10 MG Orally 1 tablet Oxalate 51-01 Once a day Cephalexin [facility] 69222-03 500 MG Orally 1 capsule 47-01 Three times a day Crestor [facility] 15258-46 5 MG Orally Once 1 tablet 55-90 a day Amlodipine [facility] 00347-65 10 MG Orally 1 tablet Besylate 02-20 [place] [address]-50 Orally not defined 46-01 Procedures Procedure Coding System Code Date OFFICE VISIT, EST-LOW COMPLEXITY (15 MIN.) CPT-4 08544 July 03, 2014 [facility] visit Established Patient CPT-4 G0467 July 03, [...]
--- OUTSIDE RECORDS SUMMARY | 2017-02-17 13:36 | External Medical Summary ---
:1945 Author Organization eClinicalWorks Care Team Providers Name Role Phone Elsi Luna Provider Role Unavailable Allergies No Known Allergies Problems No Known Problems Medications Medication Code Code Instructions Start End Date Status Dosage System Date Crestor NDC 25107-37 5 MG Orally Once 1 tablet 55-90 a day Trazodone HCl NDC 17440-10 50 MG Orally 1 tablet at 37-01 Once a day bedtime Lisinopril-[place] NDC 88136-50 20-12.5 MG 1 tablet chlorothiazide 36-01 Orally Once a day Escitalopram NDC 27330-07 10 MG Orally 1 tablet Oxalate 51-01 Once a day Tamsulosin HCl NDC 76392-80 0.4 MG Orally Jan 14, capsule 38-01 Once a day 2014 30 minutes after the [place] [address]-03 10 MG Orally 1 tablet Besylate 02-20 Once a day Results No Known Results Summary Purpose eClinicalWorks Submission
--- OUTSIDE RECORDS SUMMARY | 2017-02-17 13:36 | External Medical Summary ---
:1945 [facility] Team Providers Name Role Phone Simin [...] Status Dosage System Date Date Tamsulosin HCl [facility] 10648708900 0.4MG TAKE ONE CAPSULE BY MOUTH ONCE DAILY 30 MINUTES AFTER THE SAME MEAL EACH DAY. Aspirin [facility] 10544-76792 81 MG Orally 1 tablet Once a day Melatonin [facility] [address]-70 3 MG Orally 1 tablet at Once a day bedtime as needed with food Lisinopril-Hydr [facility] [address]-65 20-12.5 MG 1 tablet ochlorothiazide Orally Once a day Crestor [facility] 20636247935 10MG Orally 10 mg Once a day Vitamin B 12 [facility] 12979-60899 250 MCG Orally not defined Potassimin [facility] [address]-39 75 MG Orally 1 tablet Once a day Cod Liver Oil [facility] [address]-28 Orally not defined Viagra [facility] [address]-32 25 MG Orally Hamida 1 tablet as Once a day 14, needed before 2016 sexual intercourse Garlic [facility] 12[address]-25754 1000 MG Orally not defined Doxycycline [facility] [address]-26 100 MG Orally 1 tablet Hyclate Once a day Amlodipine [facility] [address]-34 10 MG Orally 1 tablet Besylate Once a day Escitalopram [facility] [address]-81 10 MG Orally 1 tablet Oxalate Once a day Trazodone HCl [facility] [address]-47 100 MG Orally 1.5 tablets Once a day at at bedtime bedtime Procedures Procedure Coding System Code Date OFFICE VISIT, EST-LOW COMPLEXITY (15 MIN.) CPT-4 21288 Sep 25, 2015 [facility] visit Established Patient CPT-4 G0467 Sep 25, 2015 Vital Signs Date/Time: Sep 25, 2015 Temperature 98.9 F Height 65 in Weight 224.4 lbs Blood Pressure Diastolic 68 mm Hg Blood Pressure Systolic 142 mm Hg Cardiac Monitoring Heart Rate 73 /min BMI 37.34 Index Oximetry 96 % Results No Known Results Summary Purpose eClinicalWorks Submission
--- OUTSIDE RECORDS SUMMARY | 2017-02-17 13:36 | External Medical Summary ---
[...] End Status Dosage System Date Date Melatonin [facility] [address]-38 3 MG Orally 1 tablet Once a day at bedtime as needed with food Doxycycline [facility] [address]-35 100 MG Orally 1 tablet Hyclate Once a day Lisinopril-Hydr [facility] [address]-79 20-12.5 MG 1 tablet ochlorothiazide Orally Once a day Crestor [facility] 03865999606 10MG Orally 10 mg Once a day Garlic [facility] 11977-15376 1000 MG Orally not defined Escitalopram [facility] [address]-16 10 MG Orally 1 tablet Oxalate Once a day Trazodone HCl [facility] [address]-27 100 MG Orally 1.5 Once a day at tablets at bedtime bedtime Vitamin B 12 [facility] 10419-81693 250 MCG Orally not defined Aspirin [facility] 19514-74137 81 MG Orally 1 tablet Once a day Potassimin [facility] [address]-09 75 MG Orally 1 tablet Once a day Tamsulosin HCl [facility] 35484964470 0.4MG TAKE ONE CAPSULE BY MOUTH ONCE DAILY 30 MINUTES AFTER THE SAME MEAL EACH DAY. Cod Liver Oil [facility] [address]-88 Orally not defined Amlodipine [facility] [address]-38 10 MG Orally 1 tablet Besylate Once a day Procedures Procedure Coding System Code Date [facility] MicroAlb/Creat Ratio, Urine CPT-4 81802 Oct 03, 2015 [facility] MicroAlb/Creat Ratio, Urine CPT-4 52772 Oct 03, 2015 COMPLETE CBC W/AUTO DIFF WBC CPT-4 32444 Oct 03, 2015 [facility] CMP CPT-4 11106 Oct 03, 2015 URINALYSIS WITH MICROSCOPIC CPT-4 32439 Oct 03, 2015 [facility] LIPID PANEL CPT-4 17394 Oct 03, 2015 LIPID PANEL CPT-4 35821 Oct 03, 2015 COMPREHENSIVE METABOLIC PANEL CPT-4 71402 Oct 03, 2015 TSH CPT-4 16456 Oct 03, 2015 MAGNESIUM CPT-4 12692 Oct 03, 2015 Results Name Result Date Reference Range Unit Abnormality Flag Urinalysis with Microscopic ----Urobilinogen 1.0 55829767 <1.0 mg/dL ----pH 7.0 43017201 5.0-8.0 ----Glucose, Urine Negative [id number] Negative ----Ketones Negative 15899902 Negative ----Blood Negative [id number] Negative ----Urine Mucus Present 20151003 ----Protein Negative [id number] Negative ----Epithelial Cells 0-2 45731803 /HPF ----Nitrites Negative 53284510 Negative ----WBC, Urine 0-2 67949467 0-4 /HPF ----Bilirubin Negative 45488657 Negative ----Appearance Clear 20151003 ----Specific [place] 1.018 07834537 1.003-1.030 ----RBC, Urine 0-4 [id number] 0-4 /HPF ----Color Yellow 20151003 ----Leukocyte Esterase Negative 20151003 Negative Magnesium ----Magnesium 2.7 07624324 1.6-2.6 mg/dL H CBC With Platelet and Differential ----Absolute Eosinophils 0.20 15445699 0.00-0.50 10*3 ----Absolute Monocytes 0.88 74478639 0.30-1.00 10*3 ----Neutrophils 59 44382832 51-75 % ----Absolute Basophils 0.02 55048072 0.00-0.20 10*3 ----MPV 9.8 84878000 8.8-14.8 fL ----Monocytes 12 20151003 4-11 % H ----RDW 14.6 82577923 11.5-14.5 % H ----Lymphocytes 26 20151003 20-46 % ----MCHC 33.1 20151003 32.0-36.0 g/dL ----MCH 29.6 20151003 27.0-32.0 pg ----MCV 89.4 20151003 82.0-99.0 fL ----Immature 0.3 91829798 0.0-1.0 % Granulocytes ----Platelet Count 281 20151003 150-400 K/uL ----Absolute Lymphocytes 2.00 81831826 0.80-3.30 10*3 ----Absolute Neutrophils 4.45 81230879 1.90-7.00 10*3 ----Eosinophils 3 20151003 0-4 % ----Basophils 0 55523492 0-2 % ----WBC 7.6 20151003 4.8-10.8 K/uL ----RBC 4.43 27724852 4.60-6.20 10*6/uL L ----HGB 13.1 20151003 14.0-18.0 [...] 20151003 18 - 33 mmol/L ----Potassium 4.0 46595661 3.6 - 5.1 mmol/L ----Sodium 138 20151003 [...] ----HDL 27 20151003 ----Chol/HDL Ratio 4.6 20151003 ----INDLc 98 20151003 ----VLDL 30 20151003 ----LDL 68 20151003 ----Cholesterol 125 20151003 Summary Purpose eClinicalWorks Submission
--- OUTSIDE RECORDS SUMMARY | 2017-02-17 13:36 | External Medical Summary ---
[...] Start End Date Status Dosage System Date [place] [facility] 04188-51 5-325 MG Orally Jan 20, Jan 25, 1 tablet as 13-01 every 4-6 hrs 2014 2014 needed prn Melatonin [facility] 02918-17 3 MG Orally Once 1 tablet at 12-08 a day bedtime as needed with food Garlic [facility] 21636-77 1000 MG Orally not defined 533 Potassimin [facility] 43135-37 75 MG Orally 1 tablet 43-01 Once a day Lisinopril-[place] [facility] 86908-57 20-12.5 MG 1 tablet chlorothiazide 36-01 Orally Once a day Aspirin [facility] 88361-13 81 MG Orally 1 tablet 805 Once a day Trazodone HCl [facility] 02881-89 50 MG Orally 1 tablet at 37-01 Once a day bedtime Vitamin B 12 [facility] 59638-69 250 MCG Orally not defined 581 Cod Liver Oil [facility] 33528-66 Orally not defined 46-01 Escitalopram [facility] 70434-35 10 MG Orally 1 tablet Oxalate 51-01 Once a day Amlodipine [facility] 79413-93 10 MG Orally 1 tablet Besylate 02-20 Once a day Crestor [facility] 11248-02 10 MG Orally 10 mg 51-39 Once [...]
--- NOTE | 2017-02-17 13:51 | XRay Report ---
Indication: Clearance PROCEDURE: XR chest 1V: Encounter: Initial Comparison: February 01, 2017 Findings: The lungs are stable in appearance without new focal airspace consolidation. There is no pleural effusion or pneumothorax. The heart size, pulmonary vascularity and mediastinal contours are unchanged. Prior CABG. IMPRESSION: Stable appearance of the chest without acute cardiopulmonary disease. .
--- NOTE | 2017-02-17 14:13 | Emergency Department Report ---
Altered Mental Status HPI - General Chief Complaint: Altered Mental Status Stated Complaint: confusion Time Seen by Provider: 02/17/17 12:47 Source: patient, family, RN notes reviewed, old records reviewed, other (PCM report) Mode of arrival: ambulatory Limitations: altered mental status (Dementia) - History of Present Illness HPI narrative: 72yo man sent from his PCM's office for increasing mood lability, increasing forgetfulness, and aggressive behavior. Pt has known dx of dementia; has been taken care of by his at home till now. PCM has significant concern that pt has not been taking all of his medications, may have been taking his crestor 2- 3x daily, or may be taking too much other meds. Pt was sent for [facility] screen vs inpt admission. MD complaint: altered mental status Onset (ago): week(s) Timing confirmed by: spouse, family member Severity: moderate Consistency of symptoms: waxing and waning, getting worse Context: change in medication - Related Data Home Medications Medication Instructions Recorded Confirmed Apixaban [Eliquis] 5 mg PO BID #60 12/09/15 02/17/17 Gabapentin 300 mg PO HS #0 cap 12/09/15 02/17/17 Chlorthalidone [Chlorthalidone] 25 mg PO DAILY 02/13/17 02/17/17 Folic Acid 0.4 mg PO DAILY 02/13/17 02/17/17 Garlic 1 tab PO DAILY 02/13/17 02/17/17 Lisinopril/Hctz 20/12.5 [Prinzide 1 tab PO DAILY 02/13/17 02/17/17 20/12.5] Om3/Dha/Epa/Cod Liver Oil/A/D3 1 cap PO DAILY 02/13/17 02/17/17 [Cod Liver Oil Softgel] Potassium Chloride [K-Dur] 20 meq PO WB 02/13/17 02/17/17 Rosuvastatin Calcium [Rosuvastatin 5 mg PO HS 02/13/17 02/17/17 Calcium] Tamsulosin [Flomax] 0.4 mg PO HS 02/13/17 02/17/17 Trazodone [Desyrel] 50 mg PO HS 02/13/17 02/17/17 Vitamin E 1,000 unit PO DAILY 02/13/17 02/17/17 Divalproex [Depakote] 250 mg PO QAM 02/17/17 02/17/17 Gentamicin Eye Drops [Garamycin 1 drop EACH EYE QID 02/17/17 02/17/17 O/S] Melatonin 10 mg PO HS 02/17/17 02/17/17 Previous Rx's Medication Instructions Recorded Divalproex [Depakote] 500 mg PO HS #30 07/22/16 Allergies Allergy/AdvReac Type Severity Reaction Status Date / Time No Known Drug Allergies Allergy Unknown Verified 02/17/17 12:54 Review of Systems All systems: reviewed and negative except as stated Neurological: Reports: as per HPI, weakness, confusion. Denies: headache, numbness, paresthesias, abnormal gait, vertigo Psychiatric: Reports: as per HPI, visual hallucinations. Denies: anxiety, depression, suicidal thoughts, homicidal thoughts, auditory hallucinations PFS Patient Stated Medical History Cerebrovascular Accident Yes Dementia Yes Coronary Artery Disease Yes Hypertension Yes Myocardial Infarction Yes Other GI Yes: hernia Surgical History: Left heart catheterization (12/2015) - grafts patent, EF 65% ( [facility]). CABG x4 (1992) and x3 (2008). Back surgery (1992 and 2010). Left rotator cuff repair 1999 - Social History Smoking status: Never smoker Physical Exam - Limitations Limitations: no limitations, altered mental status (Dementia) - General General appearance: alert, in no apparent distress, obese - Head Head exam: atraumatic, normocephalic, normal inspection - Eye Eye exam: Present: normal appearance, PERRL, EOMI. Absent: scleral icterus - ENT ENT exam: Present: normal exam, normal oropharynx, mucous membranes moist, TM's normal bilaterally, normal external ear exam - Neck Neck exam: Present: normal inspection, full ROM. Absent: trachea midline, tenderness, lymphadenopathy - Chest Chest inspection: Present: normal inspection, symmetric chest wall rise. Absent : tenderness, rash - Respiratory Respiratory exam: Present: normal lung sounds bilaterally. Absent: respiratory distress, wheezes, prolonged expiratory phase - Cardiovascular Cardiovascular exam: Present: regular rate, normal rhythm, normal heart sounds, +S1, +S2. Absent: systolic murmur, diastolic murmur, +S3, +S4 - Abdominal Exam Abdominal exam: Present: soft, normal bowel sounds. Absent: distention, tenderness, guarding, rebound, psoas sign, obturator sign, heel tap sign, Isabel 's sign, Rovsing's sign, tenderness at McBurney's Point, hernia - Extremities Exam Extremities exam: Present: normal inspection, full ROM, normal capillary refill. Absent: tenderness, pedal edema - Skin Skin exam: Present: warm, intact. Absent: rash - Neurological Exam Neurological exam: Present: alert, CN II-XII intact, other (Pt has 'mask' or ' lizard' facies; has cogwheel rigidity, hyperreflexia, and baseline tremor.). Absent: oriented X3, normal gait (Halting), motor sensory deficit, reflexes normal (Hyperreflexia (3-4/4)) - Psychiatric Psychiatric exam: Present: agitated, anxious Course - Consultations Consultation #1: [facility]: Will come to evaluate pt. Time: 14:58 Vital Signs Temperature 97.6 F 02/17/17 12:50 Pulse Rate 95 02/17/17 12:50 Respiratory Rate 20 02/17/17 12:50 Blood Pressure 154/95 H 02/17/17 12:50 Pulse Oximetry 94 02/17/17 12:50 Temperature 97.6 F 02/17/17 12:50 Pulse Rate 95 02/17/17 12:50 Respiratory Rate 20 02/17/17 12:50 Blood Pressure 166/76 H 02/17/17 13:20 Pulse Oximetry 94 02/17/17 12:50 Altered Mental Status - [facility] Narrative Medical decision making narrative: Pt with s/s c/w Parkinson's disease and dementia. [facility] contacted for screening evaluation. - Differential Diagnosis Likely: altered mental status, delirium, dementia, hypoglycemia, subarachnoid hemorrhage - Medical Records Attestation: I reviewed the patient's medical records. - Lab Data Attestation: I reviewed the patient's lab results. Result diagrams: 02/17/17 13:54 02/17/17 13:54 Lab Results 02/17/17 02/17/17 Range/Units 13:48 13:54 WBC 8.4 (4.5-11.0) T/MM3 RBC 4.63 (4.50-5.90) M/MM3 Hgb 13.5 (13.5-17.5) GM/DL Hct 43.0 (41-53) % MCV 92.9 (80-100) UM3 MCH 29.2 (26-34) UUG MCHC 31.4 (31-37) GM/DL RDW Std Deviation 48.2 (36.9-50.2) FL Plt Count 235 (130-400) T/MM3 MPV 9.8 (9.4-12.4) UM3 Immature Gran % (Auto) 0.1 (0.0-0.5) % Neut % (Auto) 58.2 (33-66) % Lymph % (Auto) 31.5 (23-45) % [place] % (Auto) 9.0 (0-9.0) % Eos % (Auto) 1.0 (0-4) % Baso % (Auto) 0.2 (0-2) % Neut # (Auto) 4.9 (1.8-7.7) T/MM3 Lymph # (Auto) 2.7 (1-4.8) T/MM3 [place] # (Auto) 0.8 (0-0.8) T/MM3 Eos # (Auto) 0.1 (0-0.5) T/MM3 Baso # (Auto) 0.0 (0-0.2) T/MM3 Abs Immat Gran (auto) 0.01 (0.00-0.03) T/MM3 Ur Collection Type Urine, clean catch Urine Color Yellow (YELLOW) Urine Clarity Clear Urine pH 8.0 (5.0-8.0) Ur Specific [place] 1.015 (1.015-1.025) Urine Protein Negative (NEGATIVE) Urine Glucose (UA) Negative (NEGATIVE) Urine Ketones Negative (NEGATIVE) Urine Occult Blood Negative (NEGATIVE) Urine Nitrate Negative (NEGATIVE) Urine Bilirubin Negative (NEGATIVE) Urine Urobilinogen 0.2 (NORMAL) EU/DL Ur Leukocyte Esterase Negative (NEGATIVE) Urinalysis Comment Microscopic not ind. - Radiology Data Attestation: I reviewed the patient's radiology results. CXR: IMPRESSION: Stable appearance of the chest without acute cardiopulmonary disease. - EKG Data EKG #1 EKG attestation: Yes: I reviewed and interpreted this EKG. 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 Qualifiers: Dementia behavioral disturbance: with behavioral disturbance Qualified Code(s) : G20 - Parkinson's disease; F02.81 - Dementia in other diseases classified elsewhere with behavioral disturbance [place] 67 [place] [facility] Print Language: Kinyar[place] Condition: Stable Prescriptions: No Action Gabapentin 300 mg PO HS #0 cap Apixaban [Eliquis] 5 mg PO BID #60 Om3/Dha/Epa/Cod Liver Oil/A/D3 [Cod Liver Oil Softgel] 1 cap PO DAILY Lisinopril/Hctz 20/12.5 [Prinzide 20/12.5] 1 tab PO DAILY Tamsulosin [Flomax] 0.4 mg PO HS Rosuvastatin Calcium [Rosuvastatin Calcium] 5 mg PO HS Trazodone [Desyrel] 50 mg PO HS Chlorthalidone [Chlorthalidone] 25 mg PO DAILY Potassium Chloride [K-Dur] 20 meq PO WB Folic Acid 0.4 mg PO DAILY Divalproex [Depakote] 250 mg PO QAM Divalproex [Depakote] 500 mg PO HS #30 Vitamin E 1,000 unit PO DAILY Garlic 1 tab PO DAILY Gentamicin Eye Drops [Garamycin O/S] 1 drop EACH EYE QID Melatonin 10 mg PO HS Referrals: New De La Cruz DO [Family Provider] - Time of Disposition: 15:46 - Seen By: physician
[2017-02-17] MEDS ORDERED: LORazepam 0.5 MG TABLET PO PRN (16:41)
[2017-02-17 17:19] VITALS: BMI 36.8
[2017-02-17] MEDS: TAMSULOSIN 0.4 MG CAPSULE PO SCH (20:10)
[2017-02-17] MEDS: GABAPENTIN 300 MG CAPSULE PO SCH (20:10)
[2017-02-17] MEDS: MELATONIN 5 MG TABLET PO SCH (20:10)
[2017-02-17] MEDS: APIXABAN 5 MG TABLET PO SCH (20:11)
[2017-02-17] MEDS: GENTAMICIN 0.3% EYE DROPS 15ml EACH EYE SCH ×2 (20:11→20:12)
[2017-02-17] MEDS: DIVALPROEX 500 MG TABLET PO SCH (20:11)
[2017-02-17] MEDS: ROSUVASTATIN 5 MG TABLET PO SCH (20:11)
--- NOTE | 2017-02-17 21:15 | Consult Note ---
Consult Information - Data of Consult Consult date: 02/17/17 Requesting Physician: Sera Shah MD Primary Care Provider: New De La Cruz DO Family Provider: New De La Cruz DO - Consult Narrative Reason for consult: altered mental status History of present illness: patient is a pleasant 72yo male known to our clinic. symptoms going on for several days. at that time started with some increased tremor and paranoia. uncertain altogether just what and how much of his scheduled meds he's been taking over that time. suffered a non-witnessed fall over the weekend. patient states he was just getting up out of the bath and his hands slipped and he fell back down on his bottom. he denies hitting his head or loss of consciousness but sister isn't sure. he denies syncope, dizziness, near- syncope as cause of this fall and he states it was very mild. he got right back up. denies concussion and post-concussion type symptoms. no other falls, trauma, injuries. no headaches, focal neurologic deficits, stroke symptoms. no neck or head pain. no residual issues or pain from this fall per patient. he was seen in the ER that day and vital signs, cbc, cmp, ua, ct head were unremarkable at that time. he was sent home but has only become more confused as the week has drawn on. he is arguing with the TV and having visual hallucinations per patient's sister although the patient denies this. he is more argumentative and combative although not violent. he has also been noted to have b/l upper extremity and head tremors over that time. he was seen in clinic today for follow up and was sent to the ER for further evaluation for medical cause and to be evaluated for a generations admission also. his vitals were stable. cbc, cmp, tsh, UA, CXR all look ok. EKG is unchanged from patient 's usual baseline. CK, tylenol level, salicylate level, alcohol level unremarkable today. valproic acid level in range today. he is currently stable upon this interview but obviously agitated. he is currently admitted to the generations unit. we are consulted for altered mental status and general medical management. over the past week he's developed gradual bilateral conjunctival injection. ROS negative for foreign body risk factors or foreign body sensation. no photophobia. no blurry vision, loss of vision, change in visual field or other visual changes. no recent travel, camping, sick exposures, may exposures. eyes not matted down in the AM. no mucoid discharge, green discharge or other discharge. no trouble accomodating or tracking/moving eyes. no periorbital swelling. no headaches, focal neurologic deficits, cranial nerve symptoms/ palsies, syncope, dizziness, near-syncope, nuchal rigidity, meningeal symptoms, fevers, chills, body aches, fatigue, weakness, unintentional weight loss, appetite changes, aspiration symptoms. can't remember anything he got in his eyes. no burning or itching of eyes bilaterally. no night sweats, ear pain, ear discharge, sinus pain, sore throat, runny nose, periorbital swelling, face swelling, chest pain, SOA, orthopnea, PND, new edema leg asymmetry, skin changes , new rashes. no other falls, trauma, injuries as noted above. no palpitations , cough, sputum production, hemoptysis, abdominal pain, GERD symptoms, hematemesis, coffee ground emesis. he had a couple of episodes of normal appearing vomitus a couple of days ago per patient but hasn't had any before or since. denies nausea or vomiting at this time. no diarrhea, constipation, bloody/black stools, melena, BRBPR, dysphagia, GI warning symptoms. no toxic ingestions or exposures. no manic symptoms or obvious depression symptoms. patient denies homicidal/suicidal ideations. sister present for most of encounter today and does contribute to history. patient doesn't wear contact lenses. no new or changing musculoskeletal, joint or back issues. no new or changing numbness/weakness/tingling anywhere. patient prescribed gentamicin eye drops from ER a few days ago but hard to tell if he's been using them or not and this is unclear. see above and below for further ROS. Past Medical History Patient Stated Medical History Cerebrovascular Accident Yes Dementia Yes Coronary Artery Disease Yes Hypertension Yes Myocardial Infarction Yes Other GI Yes: hernia bph atrial fibrillation Surgical History: Left heart catheterization (12/2015) - grafts patent, EF 65% ( [facility]). CABG x4 (1992) and x3 (2008). Back surgery (1992 and 2010). Left rotator cuff repair 1999 Family History Updates: -father at age 76 from heart and lung disease and cancer. -mother at age 69 with stroke, heaert disease and cancer. -maternal grandmother had stroke. -mother also did have COPD - Social History Smoking status: Never smoker Social history: -no significant alcohol use -no illicit substance use -lives at home with sister Chey who is his primary home companion -retired -no tobacco use Review of Systems - Constitutional Constitutional: Present: as per HPI. Absent: weakness, weight gain, weight loss - EENMT Eyes: Present: as per HPI. Absent: blurry vision, change in vision, diplopia, dry eye, loss of vision, pain, photophobia, requires corrective lenses Ears: Present: as per HPI Balance: Present: as per HPI Nose: Present: as per HPI Mouth/Throat: Present: as per HPI - Cardiovascular Cardiovascular: Present: as per HPI Vascular: Present: see HPI - Respiratory Respiratory: Present: as per HPI - Gastrointestinal Gastrointestinal: Present: as per HPI - Genitourinary Genitourinary: Present: as per HPI - Musculoskeletal Musculoskeletal: Present: as per HPI - Integumentary/Breasts Integumentary: Present: as per HPI - Neurological Neurological: Present: as per HPI - Psychiatric Psychiatric: Present: as per HPI - Endocrine Endocrine: Present: as per HPI - Hematologic/Lymphatic Hematologic/Lymphatic: Present: as per HPI - Allergic/Immunologic Allergic/Immunologic: Present: as per HPI (see above for allergies and ADR's. ) Medications Home Medications Medication Instructions Recorded Confirmed Type Apixaban [Eliquis] 5 mg PO BID #60 12/09/15 02/17/17 History Gabapentin 300 mg PO HS #0 cap 12/09/15 02/17/17 History Chlorthalidone [Chlorthalidone] 25 mg PO DAILY 02/13/17 02/17/17 History Folic Acid 0.4 mg PO DAILY 02/13/17 02/17/17 History Garlic 1 tab PO DAILY 02/13/17 02/17/17 History Lisinopril/Hctz 20/12.5 [Prinzide 1 tab PO DAILY 02/13/17 02/17/17 History 20/12.5] Om3/Dha/Epa/Cod Liver Oil/A/D3 1 cap PO DAILY 02/13/17 02/17/17 History [Cod Liver Oil Softgel] Potassium Chloride [K-Dur] 20 meq PO WB 02/13/17 02/17/17 History Rosuvastatin Calcium [Rosuvastatin 5 mg PO HS 02/13/17 02/17/17 History Calcium] Tamsulosin [Flomax] 0.4 mg PO HS 02/13/17 02/17/17 History Trazodone [Desyrel] 50 mg PO HS 02/13/17 02/17/17 History Vitamin E 1,000 unit PO DAILY 02/13/17 02/17/17 History Divalproex [Depakote] 250 mg PO QAM 02/17/17 02/17/17 History Gentamicin Eye Drops [Garamycin 1 drop EACH EYE QID 02/17/17 02/17/17 History O/S] Melatonin 10 mg PO HS 02/17/17 02/17/17 History Allergies Allergy/AdvReac Type Severity Reaction Status Date / Time No Known Drug Allergies Allergy Unknown Verified 02/17/17 12:54 Exam Vital Signs: Temperature 98.0 F 02/17/17 16:05 Pulse Rate 72 02/17/17 16:05 Respiratory Rate 16 02/17/17 16:05 Blood Pressure 149/71 H 02/17/17 16:05 Pulse Oximetry 98 02/17/17 16:05 Height/Weight/BMI: Height 1.68 m Weight 103.7 kg Body Mass Index 36.8 - Constitutional Present: no acute distress, obese, cooperative (but borders on uncooperative at times. ). Absent: thin, cachectic, diaphoretic, disheveled, combative, agitated, somnolent, obtunded - Routine HEENT Exam Head: Present: normocephalic, atraumatic Eye: Absent: periorbital ecchymosis, periorbital swelling, periorbital tenderness, exophthalmos, proptosis ENT: Present: mucous membranes moist Comments: b/l moderate conjunctival injection noted. it is symmetrical. no discharge. mild watering. no photophobia. PERRLA. EOMI. no nystagmus. consensual reflex normal. accomodation is normal. no punctate keratopathy obvious. eyelids retracted and no evidence of foreign body bilaterally and no evidence of abrasion either although fluorescine exam not available in clinic. no ulcers or hyphema b/l at this time. globe appears normal. optic fundi unremarkable to non-dilated exam at this time. no clinical evidence of involvement of deeper layer of the eye at this time. visual berman normal b/l at this time. patient furthermore denies and vision changes or issues from a subjective standpoint either. - Routine Neck Exam Present: supple, full ROM, trachea midline. Absent: JVD, lymphadenopathy, thyromegaly, tenderness, swelling, tracheal deviation, trauma, meningismus Comments: no photophobia b/l at this time. no clinical evidence of meningitis at this time. his mentation is altered as noted above. - Routine Chest/Breast/Axilla Exam Chest wall: Absent: tenderness - Routine Respiratory Exam Present: CTA bilaterally. Absent: accessory muscle use, patient mechanically ventilated, dyspnea, decreased breath sounds, prolonged expiratory phase, rales , respiratory distress, rhonchi, stridor, wheezes, crackles, distant breath sounds, diminished air movement Comments: lung sounds heard in all lung berman b/l at this time. all findings above bilateral unless otherwise noted. - Routine Cardiovascular Exam Present: RRR Comments: no new murmurs. cardiac exam unchanged from usual baseline. no new edema. legs symmetrical and compartments soft b/l in LE's at this time. pulses normal in all 4 extremities b/l at this time. clinically well perfused in all 4 extremities b/l at this time. - Routine Abdominal Exam Present: soft (X4.), normoactive bowel sounds (X4.), non distended (X4.), non tender (X4.). Absent: tenderness (X4.), distended (X4.), rebound, guarding, firm, rigid, organomegaly, mass Comments: no jaundice or ascites. - Routine Exam Comments: no tenderness over bladder areas. no flank pain b/l at this time. - Routine Extremities Exam Present: non tender, pulses intact. Absent: cyanosis, joint swelling, extremity cold to touch - Routine Back/Spine/Pelvis Exam Comments: see the above. - Routine Skin Exam Present: intact Comments: no skin changes from previous to uncovered areas. - Routine Neurological Exam Present: alert exam non-focal. CN2-12 in tact. sensation/motor/muscle strength/DTR's normal and symmetrical b/l in extremities X4 at this time. concentration poor and patient has to be redirected several times. alert but only oriented to person and place, not times. GCS is 15. not obviously obtunded. denies hallucinations, delusions, homicidal/suicidal ideations and no clinical evidence of these or stacie right now. mild to moderate non-intention tremor in upper extremities and head bilaterally. no cogwheel or other rigidity. gait unchanged from previous baseline. cognition certainly not as sharp as usual. poor eye contact and is visably anxious at times. - Routine Psychiatric Exam Comments: see the above also. Results - Labs CBC & Chem 7: 02/17/17 13:54 02/17/17 13:54 Assessment and Plan Assessment and Plan: altered mental status, delerium versus progressing dementia. new onset tremor, early parkinson's with dementia versus divalproex as cause acute bilateral conjunctivitis atrial fibrillation HTN hyperlipidemia CAD multifactorial neuropathy patient taking too much crestor at home yesterday only per sister. folic acid deficits chronic multifactorial anemia, resolved -admit to [facility] unit and vital signs, diet, activity level, therapies and other admission orders per psychiatry who is primary. sister worried that patient took 15mg total of crestor yesterday. she was reassured this is within the dosing limits by quite a bit and should be nothing to worry about and no clinical evidence of toxicity here. cool compresses prn for conjunctiva. patient states he doesn't wear contacts. -follow troponin, mg, phos, esr, crp, ammonia, non-contrast CT head. see above for other testing done and results from this stay. -vitamin B12 also pending. -consult Dr. Gant of neurology re: cause for tremor, ? MRI needed, further cerebrovascular workup needed? psychiatry is primary. opthamology is a consideration -continue current gentamicin eye drops for now. restart home folic acid. continue home divalproex, gabapentin, eliquis, chlorathaladone, KCK, lisinorpial/HCTZ, tylenol prn. continue current ativan, melatonin and other management of patient's home and current psychiatric meds per psychiatry at this time. -further management pending the above. bph -continue home flomax -check pvr all other chronic medical conditions stable and no changes to plan of care at this time. ppx -continue home Eliquis for DVT ppx. -continue current PO diet for GI ppx. no clinical evidence of aspiration based on history/physical exam. -FULL CODE -dispo as per primary team. DVT Prophylaxis: Eliquis (continue home eliquis.) GI Prophylaxis: other (PO diet.) Resuscitation Status: Full Code - Time spent with patient Time with patient PN: 50 minutes - Physician Narrative Narrative: Date: 02/17/17 Time: 2049 Sepsis Assessment - Evaluation Severe Sepsis: none seen
[2017-02-17] MEDS ORDERED: ACETAMINOPHEN 325 MG TABLET PO PRN (22:14)
--- NOTE | 2017-02-18 07:53 | CT Scan Report ---
Indication: mental status change PROCEDURE: CT head/brain wo con: Encounter: Initial Comparison: February 13, 2017 Technique: Axial CT images through the head were performed without contrast. Iterative Reconstruction dose reducing technique was utilized. FINDINGS: Mild atrophy. The ventricles are stable. There are scattered areas of low attenuation in the white matter which most likely represent changes from chronic microvascular ischemia. The brainstem, cerebellum, and cerebral hemispheres otherwise have a normal morphology and CT attenuation. There is no evidence of midline displacement. No hemorrhage, signs of acute territorial stroke, mass effect, mass lesions, or edema is evident. The visualized portions of the skull base, midface, and calvarium demonstrate no abnormality. The paranasal sinuses are well aerated and free of significant disease. The tympanic and mastoid cavities appear normal. IMPRESSION: No acute intracranial abnormality or hemorrhage. Stable head CT. There is a preliminary report by [facility]. .
[2017-02-18] MEDS: FOLIC ACID 1 MG TABLET PO SCH (08:54)
[2017-02-18] MEDS: GENTAMICIN 0.3% EYE DROPS 15ml EACH EYE SCH ×4 (08:55→20:29)
[2017-02-18] MEDS: DIVALPROEX 250 MG TABLET PO SCH (08:55)
[2017-02-18] MEDS: APIXABAN 5 MG TABLET PO SCH ×2 (08:55→20:30)
[2017-02-18] MEDS: LISINOPRIL/HCTZ 20/12.5 MG TABLET PO SCH (08:55)
[2017-02-18] MEDS ORDERED: CHLORTHALIDONE 25 MG TABLET PO SCH (09:00)
--- NOTE | 2017-02-18 13:37 | Consultation ---
DATE OF CONSULTATION 02/18/[address] New De La Cruz PATIENT'S CHIEF COMPLAINT Tremor and confusion. HISTORY OF PRESENT ILLNESS Patient is a 72-year-old male with history of cerebrovascular disease, coronary artery disease, hypertension, AK and dementia. He was recently admitted to the [facility] at [facility] for increasing mood lability, increasing forgetfulness and aggressive behavior. Those have been attributed to dementia. The patient has been noticed to have worse postural and action tremor affecting his hands. This has been more noticeable on the right compared to the left. This has been going on for at least a few months, if not longer. The patient has been taking Depakote for mood stabilization for several months and there is a chance that this can be associated with that. He has had no particular rigidity or bradykinesia on one side compared to the other. He has had no resting pill-rolling tremor. His gait has been stable overall. Patient's condition has improved during admission. He is more stable mentally and physically. His lab showed some elevated sodium level. He had a normal CT of the head. PHYSICAL EXAMINATION The patient was awake, alert, oriented x 2. He has had some mild confusion and difficulty answering questions. He has a tendency to change subjects when asked a question. This can be part of his behavioral problem and dementia. Extraocular muscles were intact. Visual field was full. Speech was fluent. Motor examination was 5-/5 in all extremities. Sensory examination was symmetrical to light touch and pinprick. Deep tendon reflexes were 2/4. Coordination for [id number]-no-eqkq was slightly dysmetric on the left compared to the right. Patient had postural and action tremor affecting both hands. This was more noticeable on the right due to right-sided dominance. Patient's gait was stable and steady. He had no shuffling and no problem with arm movement. ASSESSMENT 1. Postural and action tremor. This can be associated with the usage of Depakote. Other consideration includes slowly progressing essential tremor. 2. No significant parkinsonism symptoms. PLAN 1. Continue with Depakote at current dosage to help with mood and behavioral problem. His current level is therapeutic and should not be causing any toxic effect on the patient. 2. Consider the usage of primidone 25 mg p.o. b.i.d. for tremor if this problem progresses. Other consideration includes increasing gabapentin which may also suppress the tremor. 3. Provide good fluid intake. 4. Consider physical therapy if having worse problems with coordination and gait. MTDD
--- NOTE | 2017-02-18 15:13 | Progress Note ---
- Date 02/18/17 Subjective: no acute issues overnight. patient has done well since admission. no behavioral issues per nursing report. patient denies depression symptoms. no events to suggest stacie or altered mentation. conjunctival injection improving. no eye pain/itching, photophobia. no obtundation or depression mentation. he has not been combative at all and isn't right now either. patient alert and oriented X3. no headaches, stroke symptoms, syncope, dizziness, falls, trauma, injuries, URI symptoms, sinus issues, fatigue, weakness. appetite is ok. he had X1 small BM this morning he says. no chest pain, numbness/weakness/tingling anywhere, SOA, heart failure symptoms, syncope , dizziness, near-syncope. no skin changes or new rashes. he feels like he wakes up at times with a pain in lateral right when asked and this sounds crampy in nature. it goes away after a few minutes. no leg swelling or asymmetry. no pallor or cyanosis of extremities. no injuries, fall, trauma to explain this either. this has occured off and on for months to years and isn't new. located over right lateral lower leg and doesn't involve a joint. no redness/weeping/drainage/fluctuance/pustulance/pain to palpation in that area or otherwise. no palpitations, cough, sputum production, hemoptysis, coffee ground emesis, melena, BRBPR, hematemesis, bloody/black stools, dysphagia, aspiration symptoms. no fevers, chills, body aches, constitutional symptoms. no mood changes or psychiatric issues. conjunctival injection from yesterday markedly improved. no vision changes, vision loss, blurry vision or other ocular changes otherwise at this time. no photophobia or meningeal symptoms. no dysuria, hematuria, urinary frequency, flank pain, nocturia, urinary/bowel incontinance, other urinary symptoms/changes. slept well last night per report. no homicidal/suicidal ideations. no new or changing musculoskeletal issues or pain other than noted above. nursing notes no acute issues otherwise at this time. no new issues otherwise in general at this time. Objective Vital signs: Temperature 97.9 F 02/18/17 08:00 Pulse Rate 61 02/18/17 08:00 Respiratory Rate 16 02/18/17 08:00 Blood Pressure 135/65 02/18/17 08:00 Pulse Oximetry 94 02/18/17 08:00 Height/Weight/BMI: Height 1.68 m Weight 103.7 kg Body Mass Index 36.8 - Constitutional Present: no acute distress, obese, cooperative. Absent: thin, cachectic, diaphoretic, disheveled, combative, agitated, somnolent, obtunded - Routine HEENT Exam Head: Present: normocephalic, atraumatic Eye: Present: EOMI, PERRL ENT: Present: mucous membranes moist Comments: conjunctival injection from yesterday much improved. no photophobia. no clinical evidence of meningitis at this time. no face swelling/edema or periorbital swelling or edema bilaterally. otherwise no changes from previous exam. - Routine Respiratory Exam Present: CTA bilaterally. Absent: accessory muscle use, patient mechanically ventilated, dyspnea, decreased breath sounds, prolonged expiratory phase, rales , respiratory distress, rhonchi, stridor, wheezes, crackles, distant breath sounds, diminished air movement Comments: lung sounds heard in all lung berman b/l at this time. all findings above bilateral unless otherwise noted. - Routine Cardiovascular Exam Comments: cardiac exam unchanged from previous. RRR at this time. no new edema. no lower extremity edema b/l at this time. legs symmetrical and compartments soft b/l in LE's at this time. no redness/swelling/weeping/drainage/fluctuance/ pustulance/pain to palpation in right lower leg or other extremities b/l at this time. no new skin changes from previous. clinically well perfused in all 4 extremities b/l at this time. - Routine Abdominal Exam Present: soft (X4.), normoactive bowel sounds (X4.), non distended (X4.), non tender (X4.). Absent: tenderness (X4.), distended (X4.), rebound, guarding, firm, rigid, organomegaly, mass Comments: no ascites or jaundice. - Routine Exam Comments: no tenderness over bladder area. no clinical evidence of upper UTI at this time. - Routine Extremities Exam Present: non tender. Absent: cyanosis, joint swelling, pallor, extremity cold to touch - Routine Back/Spine/Pelvis Exam Comments: see above. - Routine Musculoskeletal Exam Musculoskeletal: Present: normal gait (gait unchanged for patient as compared to previous baseline. ), moving extremities well - Routine Skin Exam Present: intact Comments: se above. - Routine Neurological Exam Present: alert, oriented X3, moving all extremities. Absent: altered mental status, abnormal gait no changes otherwise neurologically from patient's usual baseline. affect and cognition at patient's usual baseline at this time. not combative at all. no clinical evidence of acute delerium, stacie, altered mentation/sensorum/alertness , changes in cognition, psychosis, depression, obtundation at this time. answers questions appropriate. patient at his usual baseline from pre- hospitalization for me right now. - Routine Lymphatic Exam Lymphatic: Absent: lymphedema - Routine Psychiatric Exam Absent: auditory hallucinations, visual hallucinations, tactile hallucinations, depressed, anxious, agitated, paranoid, manic Comments: see above. Results - Labs CBC & Chem 7: 02/17/17 13:54 02/17/17 13:54 Assessment and Plan Assessment and Plan: altered mental status, delerium versus progressing dementia. new onset tremor, likely secondary to essential tremor versus divalproex. no clinical evidence of parkinson's acute bilateral conjunctivitis, improving. atrial fibrillation HTN hyperlipidemia CAD multifactorial neuropathy folic acid deficiency chronic multifactorial anemia, resolved night-time leg cramps -continue [facility] unit and vital signs, diet, activity level, therapies and other admission orders per psychiatry who is primary. continue isolation for conjunctivitis per protocol. continue cool compresses prn. -troponin, mg, phos, crp, ammonia, head CT unremarkable. see previous notes for other testing and results from this stay. -vitamin B12, pvr and esr pending. -cbc, cmp in the AM. -consulted Dr. Gant of neurology and he doesn't feel this is parkinson's , agrees with above management and doesn't see need for further neuroimaging or other workup at this time. no need for opthamology consult given improvement of eyes as compared to yesterday. -continue current gentamicin eye drops, home folic acid. continue home divalproex, gabapentin, eliquis, chlorathaladone, KCl, lisinorpial/HCTZ, tylenol prn. continue current ativan, melatonin and other management of patient's home and current psychiatric meds per psychiatry at this time. -further management pending the above. bph -continue home flomax -follow on PVR as noted above. all other chronic medical conditions stable and no changes to plan of care at this time. ppx -continue home Eliquis for DVT ppx. no indication to go looking for DVT secondary to above leg cramps above as patient already anticoagulated. -continue current PO diet for GI ppx. -FULL CODE -dispo as per primary team. DVT Prophylaxis: Eliquis (continue home eliquis.) GI Prophylaxis: other (continue PO diet. ) Resuscitation Status: Full Code - Time spent with patient Time with patient PN: 25 minutes - Physician Narrative Narrative: Date: 02/18/17 Time: 1510 Sepsis Assessment - Evaluation Severe Sepsis: none seen
--- NOTE | 2017-02-18 20:06 | 24 Hour Neuropsychiatic Eval ---
Date of Admission: 02/17/17 15:55 Chief complaint: "I wasn't sleeping good at home" History of Present Illness: Patient is a 72-year-old retired, male well-known to this unit, admitted to [facility] on 02/17/17 after being brought by his sister/DPOA for abrupt personality change, irritability, and symptoms previous to similar manic episodes x several days. Multiple head CTs have been negative at this point. On interview, patient is pleasant with me and states his sister brought him home because he wasn't sleeping well. He did sleep overnight first night on unit last night. His sister had reported arguing with TV, hallucinations, etc. He has not exhibited this behavior after admission, which is similar to what happened on last admission. He doesn't volunteer a lot of information and initially reports his mood has been "pretty good," but then later admits he has been irritable. He admits wanting to hit his nephew's , though he can't say why. He relays arguments with his sister. He says he hasn't seen his o/p psychiatrist Dr. Victoria recently because he blames her for not being allowed to drive anymore. He complains of a spot on his right leg that "had a swelled spot " earlier today but it appears to be fine now and he denies any pain. Will continue to monitor this. Patient does have mild tremor in hands bilaterally and was seen by neurologist on this unit. Patient denies SI, HI, AVH. He states that his sister picks up pills from pharmacy but he is reposnible from taking them from production planner scheduler, which I do not believe is he capable of without supervision at this point. Kay: Irritability, Need less sleep Dementia: Memory Impairment, Poor Executive Functioning Reviewed: Home Medications, Allergies, Current Lab Data, Imaging Reports, Current EKG(s), Nursing Notes, Physician Consults [facility] Patient Stated Medical History Cerebrovascular Accident Yes Dementia Yes Coronary Artery Disease Yes Hypertension Yes Myocardial Infarction Yes Other GI Yes: hernia Surgical History: Left heart catheterization (12/2015) - grafts patent, EF 65% ( [place]). CABG x4 (1992) and x3 (2008). Back surgery (1992 and 2010). Left rotator cuff repair 1999 Family History: Patient denies any knowledge of family hx of psychiatric illness. - Social History Smoking status: Never smoker Substance use type: does not use Housing: house Household members: caregiver (sister) Current occupational status: retired (maintenance truck driver) Social history: Strengths: pleasant personality, supportive sister/family Review of Systems All systems: reviewed and no additional remarkable complaints except as stated - EENMT Ears: Present: as per HPI Balance: Present: as per HPI Nose: Present: as per HPI Mouth/Throat: Present: as per HPI - Cardiovascular Vascular: Present: see HPI - Genitourinary Genitourinary: Present: as per HPI - Musculoskeletal Musculoskeletal: Present: as per HPI - Neurological Neurological: Present: as per HPI, memory loss, tremor(s) - Psychiatric Psychiatric: Present: as per HPI, abnormal sleep pattern, behavioral changes. Absent: anhedonia, auditory hallucinations, homicidal ideation, paranoia, suicidal ideation, visual hallucinations Mental Status Exam Vitals: Last Vital Signs Temp 97.6 F 02/18/17 16:00 Pulse 50 L 02/18/17 16:00 Resp 16 02/18/17 16:00 BP 133/66 02/18/17 16:00 Pulse Ox 93 02/18/17 16:00 Height: 1.68 m Weight: 103.7 kg - Mental Status Exam Muscle Strength/Tone: Normal Dressing: Casual Grooming: Fair Attitude: Cooperative Motor Activity: Normal Eye Contact: Good Speech: Normal Volume: Normal Rhythm: Appropriate Rhythm Sensory: Alert Orientation: Oriented X4 Mood: Neutral Affect: Relaxed (reported labile at home) Rate of Thoughts: Delayed Thought Organization: Tangential Associations: Illogical (believed to be d/t MNCD) Abstract Reasoning: Poor abstract reasoning Thought Content: Other (No abnormal thought content though answeres out of context at times, believed to be d/t MNCD) Perception/Psychotic: Perception Normal Language: Naming Intact Fund of Knowledge: Poor fund of knowledge Memory: Poor-recent Suicidal Ideation: Denies Homicidal Ideation: Denies Insight: Limited Judgement: Limited Impulse Control: Fair - Laboratory Result Diagrams: 02/17/17 13:54 02/17/17 13:54 Laboratory Results - last 24 hr 02/18/17 07:15 Phosphorus 4.4 Magnesium 2.3 Ammonia 12 C-Reactive Protein < 5.0 Assessment and Plan (1) Major 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 Current visit: No Status: Chronic Likely due to vascular dementia as well as suspected bipolar disorder, with behavioral disturbance R/O Delirium (2) PAF (paroxysmal atrial fibrillation) Current visit: No Status: Chronic (3) CAD (coronary artery disease) Current visit: No Status: Chronic (4) HTN (hypertension) Current visit: No Status: Chronic (5) Hyperlipidemia Current visit: No Status: Chronic (6) Obesity (BMI 30-39.9) Current visit: No Status: Chronic (7) Chronic back pain Current visit: No Status: Chronic (8) Acute hypernatremia Problem details: Due to vascular changes and frontotemporal disease Current visit: No Status: Acute Agree with admission to [facility] for psychiatric evaluation and stabilization; maintain safety and elopement precautions. Have consulted hospitalist for medical management, who also requested Neurology consult - please see notes in chart. Continue current care with home medications as Depakote is within therapeutic limits. Will network with sister/DPOA and outpatient psychiatrist (possibly former) Dr. Victoria in regards to further information. Monitor mood, behavior and response to treatment.
[2017-02-18] MEDS: ROSUVASTATIN 5 MG TABLET PO SCH (20:28)
[2017-02-18] MEDS: TAMSULOSIN 0.4 MG CAPSULE PO SCH (20:28)
[2017-02-18] MEDS: GABAPENTIN 300 MG CAPSULE PO SCH (20:29)
[2017-02-18] MEDS: DIVALPROEX 500 MG TABLET PO SCH (20:29)
[2017-02-18] MEDS: MELATONIN 5 MG TABLET PO SCH (20:29)
[2017-02-19] MEDS: FOLIC ACID 1 MG TABLET PO SCH (09:14)
[2017-02-19] MEDS: CHLORTHALIDONE 25 MG TABLET PO SCH (09:14)
[2017-02-19] MEDS: LISINOPRIL/HCTZ 20/12.5 MG TABLET PO SCH (09:14)
[2017-02-19] MEDS: APIXABAN 5 MG TABLET PO SCH ×2 (09:14→20:16)
[2017-02-19] MEDS: DIVALPROEX 250 MG TABLET PO SCH (09:15)
[2017-02-19] MEDS: GENTAMICIN 0.3% EYE DROPS 15ml EACH EYE SCH ×4 (09:15→20:17)
--- NOTE | 2017-02-19 11:46 | Neuropsych Progress Note ---
[facility] Subjective Date: 02/19/17 - Sujective/Severity of Illness Medications: Acetaminophen (Tylenol) 650 mg PO Q6H PRN PRN Reason: Pain Apixaban (Eliquis) 5 mg PO BID [facility] Last Admin: 02/19/17 09:14 Dose: 5 mg Chlorthalidone (Hygroton) 25 mg PO [facility] Last Admin: 02/19/17 09:14 Dose: 25 mg Divalproex Sodium (Depakote) 250 mg PO [facility] Last Admin: 02/19/17 09:15 Dose: 250 mg Divalproex Sodium (Depakote) [address] [facility] Last Admin: 02/18/17 20:29 Dose: 500 mg Folic Acid (Folate) 1 mg PO DAILY [facility] Last Admin: 02/19/17 09:14 Dose: 1 mg Gabapentin (Neurontin) [address] [facility] Last Admin: 02/18/17 20:29 Dose: 300 mg Gentamicin Sulfate (Garamycin O/S) 1 drop EACH EYE QID [facility] Last Admin: 02/19/17 09:15 Dose: 1 drop Lisinopril/HCTZ (Prinzide 20/12.5) 1 tab PO DAILY [facility] Last Admin: 02/19/17 09:14 Dose: 1 tab Lorazepam (Ativan) 0.5 mg PO Q6H PRN PRN Reason: Extreme agitation Lorazepam (Ativan Inj) 0.5 mg IM Q6H PRN PRN Reason: Extreme agitation Melatonin (Melatonin) [address] [facility] Last Admin: 02/18/17 20:29 Dose: 10 mg Potassium Chloride (K-Dur) 20 meq PO [facility] Last Admin: 02/19/17 09:14 Dose: 20 meq Rosuvastatin Calcium (Crestor) [address] [facility] Last Admin: 02/18/17 20:28 Dose: 5 mg Tamsulosin HCl (Flomax) 0.[address] [facility] Last Admin: 02/18/17 20:28 Dose: 0.4 mg Subjective: Pt seen and chart examined. Nursing reports pt is doing fairly well. Sleeping well and has a good appetite. Pt can be irritable at times but no behaviors noted. On face to face the pt ruminates on not being able to drive. He reports this is depressing to him. He denies any S/I. He reports tolerating his medication well. Denies pain Start Time: 11:30 Stop Time: 11:45 Mental Status Exam Vitals: Last Vital Signs Temp 98 F 02/19/17 08:00 Pulse 84 02/19/17 08:00 Resp 18 02/19/17 08:00 BP 145/84 H 02/19/17 08:00 Pulse Ox 93 02/19/17 08:00 Height: 1.68 m Weight: 103.7 kg - Mental Status Exam Muscle Strength/Tone: Normal Dressing: Casual Grooming: Fair Attitude: Cooperative Motor Activity: Normal Eye Contact: Good Speech: Normal Volume: Normal Rhythm: Appropriate Rhythm Orientation: Oriented X4 Mood: Neutral Rate of Thoughts: Delayed Thought Organization: Tangential Associations: Illogical (believed to be d/t MNCD) Abstract Reasoning: Poor abstract reasoning Thought Content: Other (No abnormal thought content though answeres out of context at times, believed to be d/t MNCD) Perception/Psychotic: Perception Normal Language: Naming Intact Fund of Knowledge: Poor fund of knowledge Memory: Poor-recent Suicidal Ideation: Denies Homicidal Ideation: Denies Insight: Limited Judgement: Limited Impulse Control: Fair - Laboratory Result Diagrams: 02/19/17 07:10 02/19/17 07:10 Laboratory Results - last 24 hr 02/19/17 02/19/17 07:10 07:10 WBC 7.9 RBC 4.44 L Hgb 12.9 L Hct 40.7 L MCV 91.7 MCH 29.1 MCHC 31.7 RDW Std Deviation 47.5 Plt Count 210 MPV 9.9 Immature Gran % (Auto) 0.1 Neut % (Auto) 57.2 Lymph % (Auto) 29.7 [place] % (Auto) 10.5 H Eos % (Auto) 2.2 Baso % (Auto) 0.3 Neut # (Auto) 4.5 Lymph # (Auto) 2.3 [place] # (Auto) 0.8 Eos # (Auto) 0.2 Baso # (Auto) 0.0 Abs Immat Gran (auto) 0.01 Turbidity < 20 Sodium 141 D Potassium 3.6 Chloride 99 D Carbon Dioxide 33 H Anion Gap 9 BUN 30.0 H Creatinine 0.9 GFR Calculation 83 BUN/Creatinine Ratio 33 H Glucose 95 Calculated Osmolality 277 Calcium 9.0 Total Bilirubin 0.30 Conjugated Bilirubin 0.00 Unconjugated Bilirubin 0.10 Icterus Index < 2 AST 23 ALT 24 Alkaline Phosphatase 45 Total Protein 7.2 Albumin 3.9 Globulin 3.3 Albumin/Globulin Ratio 1.2 Specimen Hemolysis < 15 Assessment and Plan (1) PAF (paroxysmal atrial fibrillation) Current visit: No Status: Chronic (2) CAD (coronary artery disease) Current visit: No Status: Chronic (3) HTN (hypertension) Current visit: No Status: Chronic (4) Hyperlipidemia Current visit: No Status: Chronic (5) Obesity (BMI 30-39.9) Current visit: No Status: Chronic (6) Chronic back pain Current visit: No Status: Chronic (7) Acute hypernatremia Problem details: Due to vascular changes and frontotemporal disease Current visit: No Status: Acute (8) Major 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 Current visit: No Status: Chronic Hospital Course Summary Disclaimer: The visit summary below is not to be considered part of the above Progress Note. Hospital Course: 02/19/17 Ruminates and not being able to drive and some depression but no behaviors noted. Continue current care
[2017-02-19] MEDS: DIVALPROEX 500 MG TABLET PO SCH (20:16)
[2017-02-19] MEDS: MELATONIN 5 MG TABLET PO SCH (20:17)
[2017-02-19] MEDS: ROSUVASTATIN 5 MG TABLET PO SCH (20:17)
[2017-02-19] MEDS: GABAPENTIN 300 MG CAPSULE PO SCH (20:17)
[2017-02-19] MEDS: TAMSULOSIN 0.4 MG CAPSULE PO SCH (20:18)
--- NOTE | 2017-02-19 21:30 | Progress Note ---
- Date 02/19/17 Subjective: patient doing about the same as yesterday really. tremor from admission has resolved. conjunctivitis from admission has resolved. no behavior issues. no altered mentation/sensorum/alertness, obtundation. no delerium symptoms. no headaches, stroke symptoms, syncope, dizziness, near-syncope, numbness/weakness/ tingling anywhere, falls, trauma, injuries, fevers, chills, body aches, fatigue weakness, URI symptoms, chest pain, SOA, heart failure symptoms, skin changes, palpitations, cough, hemoptysis, abdominal pain, GERD symptoms, nausea, vomiting , diarrhea, constipation, bloody/black stools, hematemesis, coffee ground emesis , melena, BRBPR, muscle aches, joint aches, dysuria, hematuria, flank pain, other urinary symptoms/changes. no homicidal/suicidal ideations. no other psychiatric changes or issues. no events called overnight. no new issues otherwise at this time. Objective Vital signs: Temperature 98.4 F 02/19/17 20:43 Pulse Rate 61 02/19/17 20:43 Respiratory Rate 22 02/19/17 20:43 Blood Pressure 148/70 H 02/19/17 20:43 Pulse Oximetry 93 02/19/17 20:43 Height/Weight/BMI: Height 1.68 m Weight 103.7 kg Body Mass Index 36.8 - Constitutional Present: no acute distress, cooperative Comments: not obtunded, somnolent, combative or with altered mentation. - Routine HEENT Exam Head: Present: normocephalic, atraumatic ENT: Present: mucous membranes moist Comments: no conjunctival injection b/l at this time. eye exam unchanged from previous otherwise at this time. - Routine Respiratory Exam Comments: LCTAB. no crackles/wheezes/rales. no respiratory distress, retractions, accessory muscle use, stridor, airway compromise b/l at this time. moving air well. lung sounds heard in all lung berman b/l at this time. - Routine Cardiovascular Exam Comments: cardiac exam unchanged from previous. RRR. no LE edema b/l at this time. legs symmetrical and compartments soft b/l in LE's at this time. clinically well perfused in all 4 extremities b/l at this time. - Routine Abdominal Exam Present: soft (X4.), normoactive bowel sounds (X4.), non distended (X4.), non tender (X4.) Comments: no guarding, rebound, rigidity, organomegaly or mass. - Routine Exam Comments: no tenderness over bladder area. no clinical evidence of upper UTI at this time. - Routine Extremities Exam Comments: see above. no changes from previous. - Routine Back/Spine/Pelvis Exam Comments: see above. - Routine Musculoskeletal Exam Musculoskeletal: Present: no joint swelling, no tenderness, no erythema - Routine Skin Exam Present: intact Comments: no skin changes from previous to uncovered areas. - Routine Neurological Exam Present: alert, oriented X3 tremor from admission has completely resolved. no changes neurologically as compared to yesterday. affect and cognition unchanged from yesterday. no changes from previous otherwise at this time. - Routine Lymphatic Exam Comments: no lymphedema. - Routine Psychiatric Exam Comments: see above and also HPI. Results - Labs CBC & Chem 7: 02/19/17 07:10 02/19/17 07:10 Assessment and Plan Assessment and Plan: altered mental status, delerium versus progressing dementia. new onset tremor, likely secondary to essential tremor versus divalproex. no clinical evidence of parkinson's acute bilateral conjunctivitis, improving. atrial fibrillation HTN hyperlipidemia CAD multifactorial neuropathy folic acid deficiency chronic multifactorial anemia night-time leg cramps -continue [facility] unit and vital signs, diet, activity level, therapies and other admission orders per psychiatry who is primary. continue cool compresses prn. -cbc's with mild anemia which patient has had before and otherwise ok. cmp' s unremarkable from previous and generally normal. pvr reportedly unremarkable. esr and B12 unremarkable. -cbc in the AM. -consulted Dr. Gant of neurology and he doesn't feel this is parkinson's , agrees with above management and doesn't see need for further neuroimaging or other workup at this time. no need for opthamology consult. -continue current gentamicin eye drops, home folic acid. continue home divalproex, gabapentin, eliquis, chlorathaladone, KCl, lisinorpial/HCTZ, tylenol prn. continue current ativan, melatonin and other management of patient's home and current psychiatric meds per psychiatry at this time. -further management pending the above. bph -continue home flomax all other chronic medical conditions stable and no changes to plan of care at this time. ppx -continue home Eliquis for DVT ppx. -continue current PO diet for GI ppx. -FULL CODE -dispo as per primary team. - Physician Narrative Narrative: Date: 02/19/17 Time: 2122 Sepsis Assessment - Evaluation Severe Sepsis: none seen
[2017-02-20] MEDS: DIVALPROEX 250 MG TABLET PO SCH (08:42)
[2017-02-20] MEDS: APIXABAN 5 MG TABLET PO SCH ×2 (08:42→20:02)
[2017-02-20] MEDS: FOLIC ACID 1 MG TABLET PO SCH (08:42)
[2017-02-20] MEDS: LISINOPRIL/HCTZ 20/12.5 MG TABLET PO SCH (08:42)
[2017-02-20] MEDS: GENTAMICIN 0.3% EYE DROPS 15ml EACH EYE SCH ×4 (08:43→20:02)
[2017-02-20] MEDS: CHLORTHALIDONE 25 MG TABLET PO SCH (08:43)
--- NOTE | 2017-02-20 11:00 | Neuropsych Progress Note ---
Generations Subjective Date: 02/20/17 - Sujective/Severity of Illness Medications: Acetaminophen (Tylenol) 650 mg PO Q6H PRN PRN Reason: Pain Apixaban (Eliquis) 5 mg PO BID [facility] Last Admin: 02/20/17 08:42 Dose: 5 mg Chlorthalidone (Hygroton) 25 mg PO [facility] Last Admin: 02/20/17 08:43 Dose: 25 mg Divalproex Sodium (Depakote) 250 mg PO [facility] Last Admin: 02/20/17 08:42 Dose: 250 mg Divalproex Sodium (Depakote) 500 mg PO [facility] Last Admin: 02/19/17 20:16 Dose: 500 mg Folic Acid (Folate) 1 mg PO DAILY [facility] Last Admin: 02/20/17 08:42 Dose: 1 mg Gabapentin (Neurontin) 300 mg PO [facility] Last Admin: 02/19/17 20:17 Dose: 300 mg Gentamicin Sulfate (Garamycin O/S) 1 drop EACH EYE QID [facility] Last Admin: 02/20/17 08:43 Dose: 1 drop Lisinopril/HCTZ (Prinzide 20/12.5) 1 tab PO DAILY [facility] Last Admin: 02/20/17 08:42 Dose: 1 tab Lorazepam (Ativan) 0.5 mg PO Q6H PRN PRN Reason: Extreme agitation Lorazepam (Ativan Inj) 0.5 mg IM Q6H PRN PRN Reason: Extreme agitation Melatonin (Melatonin) 10 mg PO [facility] Last Admin: 02/19/17 20:17 Dose: 10 mg Potassium Chloride (K-Dur) 20 meq PO [facility] Last Admin: 02/20/17 08:42 Dose: 20 meq Rosuvastatin Calcium (Crestor) 5 mg PO [facility] Last Admin: 02/19/17 20:17 Dose: 5 mg Tamsulosin HCl (Flomax) 0.4 mg PO [facility] Last Admin: 02/19/17 20:18 Dose: 0.4 mg Subjective: Pt seen and chart examined. Nursing reports pt has been a little confused today. Slept well and has a good appetite. On face to face the pt is bright but is having some word finding problems and is slow to respond even though he is able to carry on a conversation. He reports his mood is stable. Denies any pain. Tolerating meds Start Time: 10:45 Stop Time: 11:00 Mental Status Exam Vitals: Last Vital Signs Temp 98.1 F 02/20/17 08:00 Pulse 69 02/20/17 08:00 Resp 16 02/20/17 08:00 BP 145/98 H 02/20/17 08:00 Pulse Ox 94 02/20/17 08:00 Height: 1.68 m Weight: 103.7 kg - Mental Status Exam Muscle Strength/Tone: Normal Dressing: Casual Grooming: Fair Attitude: Cooperative Motor Activity: Normal Eye Contact: Good Speech: Normal Volume: Normal Rhythm: Appropriate Rhythm Orientation: Oriented X4 Mood: Neutral Rate of Thoughts: Delayed Thought Organization: Tangential Associations: Illogical (believed to be d/t MNCD) Abstract Reasoning: Poor abstract reasoning Thought Content: Other (No abnormal thought content though answeres out of context at times, believed to be d/t MNCD) Perception/Psychotic: Perception Normal Language: Naming Intact Fund of Knowledge: Poor fund of knowledge Memory: Poor-recent Suicidal Ideation: Denies Homicidal Ideation: Denies Insight: Limited Judgement: Limited Impulse Control: Fair - Laboratory Result Diagrams: 02/20/17 06:52 02/19/17 07:10 Laboratory Results - last 24 hr 02/20/17 06:52 WBC 8.1 RBC 4.69 Hgb 13.7 Hct 42.9 MCV 91.5 MCH 29.2 MCHC 31.9 RDW Std Deviation 47.1 Plt Count 226 MPV 10.2 Immature Gran % (Auto) 0.2 Neut % (Auto) 59.1 Lymph % (Auto) 29.0 [place] % (Auto) 9.5 H Eos % (Auto) 2.0 Baso % (Auto) 0.2 Neut # (Auto) 4.8 Lymph # (Auto) 2.4 [place] # (Auto) 0.8 Eos # (Auto) 0.2 Baso # (Auto) 0.0 Abs Immat Gran (auto) 0.02 Assessment and Plan (1) PAF (paroxysmal atrial fibrillation) Current visit: No Status: Chronic (2) CAD (coronary artery disease) Current visit: No Status: Chronic (3) HTN (hypertension) Current visit: No Status: Chronic (4) Hyperlipidemia Current visit: No Status: Chronic (5) Obesity (BMI 30-39.9) Current visit: No Status: Chronic (6) Chronic back pain Current visit: No Status: Chronic (7) Acute hypernatremia Problem details: Due to vascular changes and frontotemporal disease Current visit: No Status: Acute (8) Major 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 Current visit: No Status: Chronic Hospital Course Summary Disclaimer: The visit summary below is not to be considered part of the above Progress Note. Hospital Course: 02/19/17 Ruminates and not being able to drive and some depression but no behaviors noted. Continue current care 02/20/17 Slightly more confused today. Will review meds and labs for possible causes.
[2017-02-20] MEDS: DIVALPROEX SPRINKLE 125 MG CAPSULE PO SCH (20:01)
[2017-02-20] MEDS: MELATONIN 5 MG TABLET PO SCH (20:02)
[2017-02-20] MEDS: GABAPENTIN 300 MG CAPSULE PO SCH (20:02)
[2017-02-20] MEDS: TAMSULOSIN 0.4 MG CAPSULE PO SCH (20:03)
[2017-02-20] MEDS: ROSUVASTATIN 5 MG TABLET PO SCH (20:03)
--- NOTE | 2017-02-20 21:48 | Progress Note ---
- Date 02/20/17 Subjective: no acute issues. patient lucid and at his usual baseline cognitively at this time. no behavioral issues or aggression since admission. no altered mentation /sensorum/alertness, obtundation. no hallucinations, delusions, psychosis. no wandering. no manic or depression symptoms. patient denies homicidal/suicidal ideations. previous conjunctivitis has completely resolve. previous tremor has completely resolved. patient denies any acute issues. no headaches, stroke symptoms, syncope, dizziness, falls, trauma, ear pain, sinus pain, sore throat, near-syncope, fatigue, weakness, runny nose, fevers, chills, body aches , focal neurologic deficits, cranial nerve symptoms, appetite changes, night sweats, constitutional symptoms, skin changes, new rashes. no photophobia, vision loss, blurry vision, acute or new vision issues. no cranial nerve symptoms. no chest pain, SOA, orthopnea, PND, new edema, leg asymmetry, changes in exertional tolerance, palpitations, cough, sputum production, hemoptysis. no abdominal pain, GERD symptoms, nausea, vomiting, diarrhea, constipation, hematemesis, coffee ground emesis, melena, BRBPR, injuries, dysuria, hematuria, urinary frequency, flank pain, nocturia, urinary/bowel incontinance, polyuria, oliguria, urinary retention, joint aches, muscle aches, back issues, numbness/weakness/tingling anywhere. no boggy or inflammed joints. no acute or new/concerning issues per nursing. no events called overnight. in reviewing psychiatry's note it appears patient had some issues with word finding and what sounds like concentration earlier today. no focal neurologic deficits at that time and this appears to wax and wane. patient does have clear and coherant conversations with other patient's here and this is witnessed by myself today as well. as I speak with patient he's having no word finding and his cognition and alertness is at it's usual baseline. he has no focal deficits grom standpoint of history or physical exam at this time. alert and oriented X3. not obtunded at all. see below. Objective Vital signs: Temperature 97.7 F 02/20/17 20:33 Pulse Rate 79 02/20/17 20:33 Respiratory Rate 20 02/20/17 20:33 Blood Pressure 112/59 02/20/17 20:33 Pulse Oximetry 93 02/20/17 20:33 Height/Weight/BMI: Height 1.68 m Weight 103 kg Body Mass Index 36.8 - Constitutional Present: no acute distress, obese, cooperative. Absent: thin, cachectic, diaphoretic, disheveled, combative, agitated, somnolent, obtunded - Routine HEENT Exam Head: Present: normocephalic, atraumatic Eye: Absent: periorbital ecchymosis, periorbital swelling, proptosis ENT: Present: mucous membranes moist - Routine Respiratory Exam Present: CTA bilaterally. Absent: accessory muscle use, patient mechanically ventilated, dyspnea, decreased breath sounds, prolonged expiratory phase, rales , respiratory distress, rhonchi, stridor, wheezes, crackles, distant breath sounds, diminished air movement Comments: lung sounds heard in all lung berman b/l at this time. all findings above bilateral unless otherwise noted. - Routine Cardiovascular Exam Present: RRR Comments: no new murmurs. cardiac exam unchanged from usual baseline. no LE edema b/l at this time. legs symmetrical and compartments soft b/l in LE's at his time. clinically well perfused in all 4 extremities b/l at this time. - Routine Abdominal Exam Present: soft (X4.), normoactive bowel sounds (X4.), non distended (X4.), non tender (X4.). Absent: tenderness (X4.), distended (X4.), rebound, guarding, firm, rigid, organomegaly, mass Comments: no ascites or jaundice. - Routine Exam Comments: no tenderness over bladder area. no clinical evidence of upper UTI at this time. - Routine Extremities Exam Absent: cyanosis, edema, joint swelling, extremity cold to touch - Routine Back/Spine/Pelvis Exam Comments: see above. - Routine Musculoskeletal Exam Musculoskeletal: Present: no joint swelling, moving extremities well - Routine Skin Exam Present: intact Comments: no skin changes from previous baseline to uncovered areas. - Routine Neurological Exam Present: alert, oriented X3, moving all extremities. Absent: altered mental status, abnormal gait no focal deficits to motor/sensation grossly b/l X4. responds to questions appropriately and answers not delayed at this time. no cranial nerve issues grossly. no photophobia. no conjunctival injection b/l at this time. no clinical evidence of meningitis at this time. affect and cognition at patient' s usual baseline. no clinical evidence of delerium, cerebrovascular accident, stacie, altered mentation/sensorum/alertness, depression, anxiety, confusion, psychosis at this time. patient denies homicidal/suicidal ideations. has noted to me over the last couple of days that he sees now why his family doesn' t let him drive and this shows more insight than he's had recently. patient's tremor from admission remains resolved. otherwise no changes from previous baseline neurologically as well. - Routine Psychiatric Exam Present: normal affect, cooperative. Absent: suicidal ideation, homicidal ideation, auditory hallucinations, visual hallucinations, tactile hallucinations , depressed, anxious, agitated, paranoid, manic Comments: see the above. Results - Labs CBC & Chem 7: 02/20/17 06:52 02/19/17 07:10 Assessment and Plan Assessment and Plan: altered mental status, delerium versus progressing dementia. new onset tremor, likely secondary to essential tremor versus divalproex. no clinical evidence of parkinson's. resolved. acute bilateral conjunctivitis, resolved. atrial fibrillation HTN hyperlipidemia CAD multifactorial neuropathy folic acid deficiency chronic multifactorial anemia night-time leg cramps -continue generations unit and vital signs, diet, activity level, therapies and other admission orders per psychiatry who is primary. continue cool compresses prn. I see improvement myself from yesterday overall. per psychiatry note he was a bit more confused but this isn't evident now. I see no focal deficits and his neurologic history/physical exam it at his usual baseline. this is likely related to his waxing/waning dementia and will likely continue to be a gradually progressive process. will discuss the use and utility of MRI/MRA head/ neck tomorrow with neurology/psychiatry but not indication to do any further workup or therapy immediately at this time other than what we're doing. patient already fully anticoagulated. -cbc's and cmp's from today normal. see previous notes for other testing and results from this stay. -consulted Dr. Gant of neurology and he doesn't feel this is parkinson's , agrees with above management. no need for opthamology consult. -continue current gentamicin eye drops, home folic acid. continue home divalproex, gabapentin, eliquis, chlorathaladone, KCl, lisinorpial/HCTZ, tylenol prn. continue current ativan, melatonin and other management of patient's home and current psychiatric meds per psychiatry at this time. -further management pending the above. bph -continue home flomax all other chronic medical conditions stable and no changes to plan of care at this time. ppx -continue home Eliquis for DVT ppx. -continue current PO diet for GI ppx. -FULL CODE -dispo as per primary team. I'm less and less convinced patient will be able to go back to his previous living situation under the care of his sister as patient's needs may have eclipsed the assistance she and those at home can provide safely. will discuss this with psychiatry tomorrow. DVT Prophylaxis: Eliquis (continue home PO eliquis.) GI Prophylaxis: other (continue current PO diet. ) Resuscitation Status: Full Code - Time spent with patient Time with patient PN: 25 minutes - Physician Narrative Narrative: Date: 02/20/17 Time: 2142 Sepsis Assessment - Evaluation Severe Sepsis: none seen
[2017-02-21] MEDS: CHLORTHALIDONE 25 MG TABLET PO SCH (08:19)
[2017-02-21] MEDS: DIVALPROEX SPRINKLE 125 MG CAPSULE PO SCH ×2 (08:19→20:16)
[2017-02-21] MEDS: FOLIC ACID 1 MG TABLET PO SCH (08:19)
[2017-02-21] MEDS: GENTAMICIN 0.3% EYE DROPS 15ml EACH EYE SCH ×4 (08:19→20:17)
[2017-02-21] MEDS: APIXABAN 5 MG TABLET PO SCH ×2 (08:19→20:16)
[2017-02-21] MEDS: LISINOPRIL/HCTZ 20/12.5 MG TABLET PO SCH (08:19)
--- NOTE | 2017-02-21 13:45 | Progress Note ---
- Date 02/21/17 Subjective: patient doing remarkable well today. nursing notes no confusion and cognition has been good all day. no trouble with word-finding or other cognition issues from his usual baseline. no behavioral disturbances. no confusions, wandering or psychotic symptoms. tremor from admission has remained resolved as has his conjunctivitis. no headaches, vision changes, stroke symptoms, focal neurologic deficits, falls, trauma, injuries, ear pain, sinus pain, sore throat , runny nose, fevers, chills, body aches, fatigue, weakness. no appetite changes, unintentional weight loss, night sweats, B-symptoms, constitutional symptoms, dizziness, syncope, near-syncope, chest pain, SOA, orthopnea, PND, new edema, leg asymmetry, changes in exertional tolerance, palpitations, cough, sputum production, hemoptysis, coffee ground emesis, abdominal pain, GERD symptoms, nausea, vomiting, diarrhea, constipation, bloody/black stools, melena , BRBPR, dysphagia, GI warning symptoms, appetite changes. he states he's had normal bowel movements and regular bowel movements while here. denies homicidal /suicidal ideations. no painful/boggy/red/inflamed joints b/l X4 at this time. no dysuria, hematuria, urinary frequency, flank pain, nocturia, urinary/bowel incontinance, polyuria, oliguria, urinary retention, other urinary symptoms/ changes, hallucinations, delusions, aggression. no events called overnight. no new issues otherwise at this time. Objective Vital signs: Temperature 97.6 F 02/21/17 07:58 Pulse Rate 67 02/21/17 07:58 Respiratory Rate 18 02/21/17 07:58 Blood Pressure 153/74 H 02/21/17 07:58 Pulse Oximetry 94 02/21/17 07:58 Height/Weight/BMI: Height 1.68 m Weight 103 kg Body Mass Index 36.8 - Constitutional Present: no acute distress, obese, cooperative. Absent: thin, cachectic, diaphoretic, disheveled, combative, agitated, somnolent, obtunded - Routine HEENT Exam Head: Present: normocephalic, atraumatic Eye: Absent: periorbital ecchymosis, periorbital swelling, periorbital tenderness, proptosis ENT: Present: mucous membranes moist Comments: conjunctival injection from admission continues to stay resolved. no changes in eye/ENT exam otherwise at this time. no photophobia. no clinical evidence of any meningitis or encephalopathy at this time. no nuchal rigidity. - Routine Respiratory Exam Present: CTA bilaterally. Absent: accessory muscle use, patient mechanically ventilated, dyspnea, decreased breath sounds, prolonged expiratory phase, rales , respiratory distress, rhonchi, stridor, wheezes, crackles, distant breath sounds, diminished air movement Comments: lung sounds heard in all lung berman b/l at this time. all findings above bilateral unless otherwise noted. - Routine Cardiovascular Exam Present: RRR Comments: no new murmurs. cardiac exam unchanged from previous baseline. no new edema. legs symmetrical and compartments soft b/l in LE's at this time. clinically well perfused in all 4 extremities b/l at this time. - Routine Abdominal Exam Present: soft (X4.), normoactive bowel sounds (X4.), non distended (X4.), non tender (X4.). Absent: tenderness (X4.), distended (X4.), rebound, guarding, firm, rigid, organomegaly, mass Comments: no ascites or jaundice at all. - Routine Exam Comments: no tenderness over bladder area. no clinical evidence of any upper UTI at this time. - Routine Extremities Exam Present: non tender. Absent: cyanosis, joint swelling, pallor, extremity cold to touch - Routine Back/Spine/Pelvis Exam Comments: see above. - Routine Musculoskeletal Exam Musculoskeletal: Present: no joint swelling, no tenderness, no erythema, moving extremities well. Absent: joint erythera, joint swelling - Routine Skin Exam Present: intact Comments: no skin changes from previous to uncovered areas. - Routine Neurological Exam Present: alert, oriented X3. Absent: altered mental status no changes neurologically from previous baseline and no focal cranial nerve, sensory, motor deficits grossly at this time X4 extremities which is unchanged from usual baseline. no clinical evidence of stacie, depression, anxiety, altered mentation/sensorum/alertness, concentration issues, hallucinations, delusions, psychosis, homicidal/suicidal ideations, delerium, confusion at this time. answers to questions are appropriate and brisk. - Routine Psychiatric Exam Present: normal affect, normal thought process (for patient's usual baseline. ) , cooperative. Absent: auditory hallucinations, visual hallucinations, tactile hallucinations, depressed, anxious, agitated, paranoid, manic Comments: see above. affect and cognition unchanged from usual baseline. Results - Labs CBC & Chem 7: 02/20/17 06:52 02/19/17 07:10 Assessment and Plan Assessment and Plan: altered mental status, delerium versus progressing dementia. new onset tremor, likely secondary to essential tremor versus divalproex. no clinical evidence of parkinson's. resolved. acute bilateral conjunctivitis, resolved. atrial fibrillation HTN hyperlipidemia CAD multifactorial neuropathy folic acid deficiency chronic multifactorial anemia night-time leg cramps, resolved. -continue generations unit and vital signs, diet, activity level, therapies and other admission orders per psychiatry who is primary. continue cool compresses prn. clinically patient at his usual baseline for me today. will discuss the use and utility of MRI/MRA head/neck shortly with psychiatry and/or neurology. -see previous notes for other testing an results from this stay. no new labs or testing results today. -cbc and cmp in the AM. -consulted Dr. Gant of neurology and he doesn't feel this is parkinson's , agrees with above management. psychiatry doesn't feel need to alter meds right now given improvement and this appears very reasonable right now. -continue current gentamicin eye drops, home folic acid. continue home divalproex, gabapentin, eliquis, chlorathaladone, KCl, lisinorpial/HCTZ, tylenol prn. continue current ativan, melatonin and other management of patient's home and current psychiatric meds per psychiatry at this time. -further management pending the above. bph -continue home flomax all other chronic medical conditions stable and no changes to plan of care at this time. ppx -continue home Eliquis for DVT ppx. -continue current PO diet for GI ppx. -FULL CODE -dispo as per primary team. DVT Prophylaxis: Eliquis (contiue home Eliquis.) GI Prophylaxis: other (continue PO diet. ) Resuscitation Status: Full Code - Time spent with patient Time with patient PN: 25 minutes - Physician Narrative Narrative: Date: 02/21/17 Time: 1336 Sepsis Assessment - Evaluation Severe Sepsis: none seen
--- NOTE | 2017-02-21 15:46 | Neuropsych Progress Note ---
Generations Subjective Date: 02/21/17 - Sujective/Severity of Illness Medications: Acetaminophen (Tylenol) 650 mg PO Q6H PRN PRN Reason: Pain Apixaban (Eliquis) 5 mg PO BID [facility] Last Admin: 02/21/17 08:19 Dose: 5 mg Chlorthalidone (Hygroton) 25 mg PO [facility] Last Admin: 02/21/17 08:19 Dose: 25 mg Divalproex Sodium (Depakote Sprinkle) 250 mg PO DAILY [facility] Last Admin: 02/21/17 08:19 Dose: 250 mg Divalproex Sodium (Depakote Sprinkle) 500 mg PO [facility] Last Admin: 02/20/17 20:01 Dose: 500 mg Folic Acid (Folate) 1 mg PO DAILY [facility] Last Admin: 02/21/17 08:19 Dose: 1 mg Gabapentin (Neurontin) 300 mg PO [facility] Last Admin: 02/20/17 20:02 Dose: 300 mg Gentamicin Sulfate (Garamycin O/S) 1 drop EACH EYE QID [facility] Last Admin: 02/21/17 12:57 Dose: 1 drop Lisinopril/HCTZ (Prinzide 20/12.5) 1 tab PO DAILY [facility] Last Admin: 02/21/17 08:19 Dose: 1 tab Lorazepam (Ativan) 0.5 mg PO Q6H PRN PRN Reason: Extreme agitation Lorazepam (Ativan Inj) 0.5 mg IM Q6H PRN PRN Reason: Extreme agitation Melatonin (Melatonin) 10 mg PO [facility] Last Admin: 02/20/17 20:02 Dose: 10 mg Potassium Chloride (K-Dur) 20 meq PO [facility] Last Admin: 02/21/17 08:19 Dose: 20 meq Rosuvastatin Calcium (Crestor) 5 mg PO [facility] Last Admin: 02/20/17 20:03 Dose: 5 mg Tamsulosin HCl (Flomax) 0.4 mg PO [facility] Last Admin: 02/20/17 20:03 Dose: 0.4 mg Subjective: Patient seen and chart reviewed. Case discussed with treatment team. On interview, patient is pleasant but confused. His sister/DPOA is visiting him and reports him being tearful about his son's safety (was in the service 30 years ago) and their grandmother (who many years ago). She reports irritability/agitation improved. He becomes tearful when discussing this. She now reports she doesn't believe patient was taking all meds as she thought and had Norovirus recently - which may have caused delirium leading to symptoms. Patient does also have some word-finding difficulties. Patient denies any SI, HI or AVH. Patient denies any adverse side effects related to psychotropic medications. Nursing staff report patient seems sad today and seemed confused most of yesterday, though this is better today. Patient has been adherent with medications. Patient slept 6.5 hours overnight. VSS. Patient is eating well. Psychotropic PRNs required in the past 24 hours: none. Start Time: 12:20 Stop Time: 12:40 Mental Status Exam Vitals: Last Vital Signs Temp 97.6 F 02/21/17 07:58 Pulse 67 02/21/17 07:58 Resp 18 02/21/17 07:58 BP 153/74 H 02/21/17 07:58 Pulse Ox 94 02/21/17 07:58 Height: 1.68 m Weight: 103 kg - Mental Status Exam Muscle Strength/Tone: Normal Dressing: Casual Grooming: Fair Attitude: Cooperative Motor Activity: Normal Eye Contact: Good Speech: Normal Volume: Normal Rhythm: Appropriate Rhythm (has some word-finding difficulties) Sensory: Alert Orientation: Oriented X4 Mood: Tearful Affect: Sad Rate of Thoughts: Delayed Thought Organization: Confused Associations: Illogical Abstract Reasoning: Poor abstract reasoning Thought Content: Ruminations (anxiety about family member's safety, mostly illogical) Perception/Psychotic: Perception Normal Language: Naming Intact Fund of Knowledge: Poor fund of knowledge Memory: Poor-recent Suicidal Ideation: Denies Homicidal Ideation: Denies Insight: Limited Judgement: Limited Impulse Control: Fair - Laboratory Result Diagrams: 02/20/17 06:52 02/19/17 07:10 Assessment and Plan (1) Major 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 Problem details: Due to vascular changes and frontotemporal disease R/O Medication-induced delirium Current visit: No Status: Chronic (2) PAF (paroxysmal atrial fibrillation) Current visit: No Status: Chronic (3) CAD (coronary artery disease) Current visit: No Status: Chronic (4) HTN (hypertension) Current visit: No Status: Chronic (5) Hyperlipidemia Current visit: No Status: Chronic (6) Obesity (BMI 30-39.9) Current visit: No Status: Chronic (7) Chronic back pain Current visit: No Status: Chronic (8) Acute hypernatremia Current visit: No Status: Acute Continue current care as patient is improving; consider whether addition of antidepressant may be beneficial in improving mood. Hospital Course Summary Disclaimer: The visit summary below is not to be considered part of the above Progress Note. Hospital Course: 02/21/17 Psych: Continue current care as patient is improving; consider whether addition of antidepressant may be beneficial in improving mood.
[2017-02-21] MEDS: ROSUVASTATIN 5 MG TABLET PO SCH (20:16)
[2017-02-21] MEDS: GABAPENTIN 300 MG CAPSULE PO SCH (20:16)
[2017-02-21] MEDS: TAMSULOSIN 0.4 MG CAPSULE PO SCH (20:16)
[2017-02-21] MEDS: MELATONIN 5 MG TABLET PO SCH (20:16)
[2017-02-22] MEDS: CHLORTHALIDONE 25 MG TABLET PO SCH (08:12)
[2017-02-22] MEDS: LISINOPRIL/HCTZ 20/12.5 MG TABLET PO SCH (08:12)
[2017-02-22] MEDS: DIVALPROEX SPRINKLE 125 MG CAPSULE PO SCH ×2 (08:12→20:48)
[2017-02-22] MEDS: FOLIC ACID 1 MG TABLET PO SCH (08:12)
[2017-02-22] MEDS: GENTAMICIN 0.3% EYE DROPS 15ml EACH EYE SCH ×4 (08:13→20:48)
[2017-02-22] MEDS: APIXABAN 5 MG TABLET PO SCH ×2 (08:13→20:47)
--- NOTE | 2017-02-22 09:45 | Progress Note ---
- Date 02/22/17 Subjective: no acute issues overnight. per nursing patient still has occasional episodes of slowness to respond and trouble wordfinding but this is quite a bit better than a few days ago and on admission. no new issues. no behavioral issues or impulsive behaviors. no mood changes. patient denies depression symptoms or anxiety and ROS negative for manic symptoms. started on lexapro today. no flight of ideas or pressured speech. no hallucinations, delusions or other psychotic symptoms. ROS negative for delerium, confusion, wandering. no memory changes. not obtunded and no altered mentation at any time. tremor from admission as remained resolved as has the conjunctival injection and conjunctivitis. no vision changes, blurry vision, photophobia, meningeal symptoms, loss of vision. no headaches, stroke symptoms, focal neurologic deficits, fevers, chills, body aches, fatigue, weakness, falls, trauma, injuries , ear pain, sinus pain, sore throat, runny nose, skin changes, new rashes, chest pain, SOA, orthopnea, PND, new edema, leg asymmetry, changes in exertional tolerance, appetite changes, night sweats, constitutional symptoms, palpitations, cough, sputum production, hemoptysis, abdominal pain, GERD symptoms, nausea, vomiting, diarrhea, constipation, hematemesis, coffee ground emesis, melena, BRBPR, bloody/black stools. no joint or muscle aches. no boggy or inflamed joints b/l at this time. no numbness/weakness/tingling anywhere. no cranial nerve symptoms or seizure symptoms. no dysuria, hematuria , urinary frequency, flank pain, nocturia, urinary/bowel incontinance, polyuria , oliguria, urinary retention. nursing with no other concerns at this time. no new issues otherwise at this time. Objective Vital signs: Temperature 98.2 F 02/22/17 08:00 Pulse Rate 83 02/22/17 08:00 Respiratory Rate 18 02/22/17 08:00 Blood Pressure 122/76 02/22/17 08:00 Pulse Oximetry 95 02/22/17 08:00 Height/Weight/BMI: Height 1.68 m Weight 103 kg Body Mass Index 36.8 - Constitutional Present: no acute distress, obese, cooperative. Absent: thin, cachectic, diaphoretic, disheveled, combative, agitated, somnolent, obtunded - Routine HEENT Exam Head: Present: normocephalic, atraumatic Eye: Absent: periorbital ecchymosis, periorbital swelling, proptosis ENT: Present: mucous membranes moist Comments: no conjunctival injection at all. no photophobia. otherwise eye exam unchanged from previous bilaterally. - Routine Respiratory Exam Present: CTA bilaterally. Absent: accessory muscle use, patient mechanically ventilated, dyspnea, decreased breath sounds, prolonged expiratory phase, rales , respiratory distress, rhonchi, stridor, wheezes, crackles, distant breath sounds, diminished air movement Comments: lung sounds heard in all lung berman b/l at this time. all findings above bilateral unless otherwise noted. - Routine Cardiovascular Exam Present: RRR Comments: no new murmurs. cardiac exam unchanged from previous. no new edema. legs symmetrical and compartments soft b/l in LE's at this time. clinically well perfused in all 4 extremities b/l at this time. - Routine Abdominal Exam Present: soft (X4.), normoactive bowel sounds (X4.), non distended (X4.), non tender (X4.). Absent: tenderness (X4.), distended (X4.), rebound, guarding, firm, rigid, organomegaly, mass Comments: no ascites or jaundice. - Routine Exam Comments: no tenderness over bladder area. no clinical evidence of upper UTI at this time. - Routine Extremities Exam Present: non tender. Absent: cyanosis, pallor, extremity cold to touch - Routine Back/Spine/Pelvis Exam Comments: see above. - Routine Musculoskeletal Exam Musculoskeletal: Present: no joint swelling, no tenderness, no erythema, moving extremities well. Absent: joint swelling - Routine Skin Exam Present: intact Comments: no skin changes from previous to uncovered areas. - Routine Neurological Exam Present: alert, oriented X3 no new neurologic changes from usual baseline. no clinical evidence of stacie, depression, psychosis, behavioral disturbances, confusion, altered mentation/ sensorum/alertness as compared to usual baseline. denies homicidal/suicidal ideations. tremor from previous continues to stay resolved. no changes form yesterday's exam otherwise at this time. - Routine Lymphatic Exam Lymphatic: Absent: lymphedema - Routine Psychiatric Exam Present: normal affect, normal thought process (for patient.), cooperative. Absent: suicidal ideation, homicidal ideation, auditory hallucinations, visual hallucinations, tactile hallucinations, depressed, anxious, agitated, paranoid, manic Comments: see the above. Results - Labs CBC & Chem 7: 02/22/17 06:52 02/22/17 06:52 Assessment and Plan Assessment and Plan: altered mental status, delerium versus progressing dementia. psychiatry notes frontotemporal dementia as leading candidate for cause. new onset tremor, likely secondary to essential tremor versus divalproex. no clinical evidence of parkinson's. resolved. acute bilateral conjunctivitis, resolved. atrial fibrillation HTN hyperlipidemia CAD multifactorial neuropathy folic acid deficiency chronic multifactorial anemia night-time leg cramps, resolved. -continue generations unit and vital signs, diet, activity level, therapies and other admission orders per psychiatry who is primary. continue cool compresses prn. clinically patient at his usual baseline for me today. will discuss the use and utility of MRI/MRA head/neck shortly with psychiatry and/or neurology. last MRI/MRA head/neck was about 15 months ago and was unremarkable. -cbc and cmp's today unremarkable as compared to previous baseline. see previous notes for other testing and results from this stay. -consulted Dr. Gant of neurology and he doesn't feel this is parkinson's , agrees with above management. psychiatry doesn't feel need to alter meds right now given improvement and this appears very reasonable right now. -continue current gentamicin eye drops, home folic acid, home divalproex, gabapentin, eliquis, chlorathaladone, KCl, lisinorpial/HCTZ, tylenol prn, current ativan, melatonin and other management of patient's home and current psychiatric meds per psychiatry at this time. lexapro at 10mg PO daily added by psychiatry. -further management pending the above. bph -continue home flomax all other chronic medical conditions stable and no changes to plan of care at this time. ppx -continue home Eliquis for DVT ppx. -continue current PO diet for GI ppx. -FULL CODE -dispo as per primary team. from their notes it appears they are partial to memory care type facility and I would agree with this. I would recommend memory care for this patient. DVT Prophylaxis: Eliquis (continue home eliquis) GI Prophylaxis: other (continue current PO diet.) Resuscitation Status: Full Code - Time spent with patient Time with patient PN: 25 minutes - Physician Narrative Narrative: Date: 02/22/17 Time: 941 Sepsis Assessment - Evaluation Severe Sepsis: none seen
[2017-02-22] MEDS ORDERED: ESCITALOPRAM 10 MG TABLET PO ONE (11:32)
--- NOTE | 2017-02-22 14:33 | Neuropsych Progress Note ---
Generations Subjective Date: 02/22/17 - Sujective/Severity of Illness Medications: Acetaminophen (Tylenol) 650 mg PO Q6H PRN PRN Reason: Pain Apixaban (Eliquis) 5 mg PO BID [facility] Last Admin: 02/22/17 08:13 Dose: 5 mg Chlorthalidone (Hygroton) 25 mg PO [facility] Last Admin: 02/22/17 08:12 Dose: 25 mg Divalproex Sodium (Depakote Sprinkle) 250 mg PO DAILY [facility] Last Admin: 02/22/17 08:12 Dose: 250 mg Divalproex Sodium (Depakote Sprinkle) 500 mg PO [facility] Last Admin: 02/21/17 20:16 Dose: 500 mg Escitalopram Oxalate (Lexapro) 10 mg PO DAILY [facility] Folic Acid (Folate) 1 mg PO DAILY [facility] Last Admin: 02/22/17 08:12 Dose: 1 mg Gabapentin (Neurontin) 300 mg PO [facility] Last Admin: 02/21/17 20:16 Dose: 300 mg Gentamicin Sulfate (Garamycin O/S) 1 drop EACH EYE QID [facility] Last Admin: 02/22/17 13:18 Dose: 1 drop Lisinopril/HCTZ (Prinzide 20/12.5) 1 tab PO DAILY [facility] Last Admin: 02/22/17 08:12 Dose: 1 tab Lorazepam (Ativan) 0.5 mg PO Q6H PRN PRN Reason: Extreme agitation Lorazepam (Ativan Inj) 0.5 mg IM Q6H PRN PRN Reason: Extreme agitation Melatonin (Melatonin) 10 mg PO [facility] Last Admin: 02/21/17 20:16 Dose: 10 mg Potassium Chloride (K-Dur) 20 meq PO [facility] Last Admin: 02/22/17 08:13 Dose: 20 meq Rosuvastatin Calcium (Crestor) 5 mg PO [facility] Last Admin: 02/21/17 20:16 Dose: 5 mg Tamsulosin HCl (Flomax) 0.4 mg PO [facility] Last Admin: 02/21/17 20:16 Dose: 0.4 mg Subjective: Patient seen and chart reviewed. Case discussed with treatment team. On interview, patient is pleasant but quite ruminative. 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 He remains calm but is difficult to reassure. Patient does also have some word-finding difficulties. Patient denies any SI, HI or AVH. Patient denies any adverse side effects related to psychotropic medications. Nursing staff report patient has been pleasant on the unit with no significant behavioral difficulties. Patient has been adherent with medications. Patient slept 7 hours overnight. VSS. Patient is eating well. Psychotropic PRNs required in the past 24 hours: none. Again discussed patient's care with his sister and discussed use of Lexapro with mood stabilizer on board (Depakote within therapeutic limits). At times, his sister will ask me repetitive questions or again bring up issues we have previously discussed. This happened during the last hospitalization as well. We have stated it may be beneficial for patient to be placed in care facility if behaviors recur or worsen, as he has always done quite well on our unit. Start Time: 11:00 Stop Time: 11:20 Mental Status Exam Vitals: Last Vital Signs Temp 98.2 F 02/22/17 08:00 Pulse 83 02/22/17 08:00 Resp 18 02/22/17 08:00 BP 122/76 02/22/17 08:00 Pulse Ox 95 02/22/17 08:00 Height: 1.68 m Weight: 103 kg - Mental Status Exam Muscle Strength/Tone: Normal Dressing: Casual Grooming: Fair Attitude: Cooperative Motor Activity: Normal Eye Contact: Good Speech: Normal Volume: Normal Rhythm: Appropriate Rhythm (has some word-finding difficulties) Orientation: Oriented X4 Mood: Depressed Affect: Sad Rate of Thoughts: Delayed Thought Organization: Organized Associations: Intact Abstract Reasoning: Poor abstract reasoning Thought Content: Ruminations (anxiety about family member's safety, mostly illogical) Perception/Psychotic: Perception Normal Language: Naming Intact Fund of Knowledge: Poor fund of knowledge Memory: Poor-recent Suicidal Ideation: Denies Homicidal Ideation: Denies Insight: Limited Judgement: Limited Impulse Control: Fair - Laboratory Result Diagrams: 02/22/17 06:52 02/22/17 06:52 Laboratory Results - last 24 hr 02/22/17 02/22/17 06:52 06:52 WBC 7.6 RBC 4.56 Hgb 13.4 L Hct 42.1 MCV 92.3 MCH 29.4 MCHC 31.8 RDW Std Deviation 48.0 Plt Count 218 MPV 10.2 Immature Gran % (Auto) 0.3 Neut % (Auto) 52.3 Lymph % (Auto) 33.6 [place] % (Auto) 11.0 H Eos % (Auto) 2.4 Baso % (Auto) 0.4 Neut # (Auto) 4.0 Lymph # (Auto) 2.6 [place] # (Auto) 0.8 Eos # (Auto) 0.2 Baso # (Auto) 0.0 Abs Immat Gran (auto) 0.02 Turbidity < 20 Sodium 141 Potassium 4.0 Chloride 99 Carbon Dioxide 33 H Anion Gap 9 BUN 39.0 H Creatinine 1.1 D GFR Calculation 66 BUN/Creatinine Ratio 36 H Glucose 92 Calculated Osmolality 280 Calcium 9.4 Total Bilirubin 0.20 Conjugated Bilirubin 0.00 Unconjugated Bilirubin 0.00 Icterus Index < 2 AST 24 ALT 29 Alkaline Phosphatase 43 Total Protein 7.5 Albumin 4.0 Globulin 3.5 Albumin/Globulin Ratio 1.1 Specimen Hemolysis < 15 Assessment and Plan (1) Major 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 Problem details: Due to vascular changes and frontotemporal disease R/O Medication-induced delirium Current visit: No Status: Chronic (2) PAF (paroxysmal atrial fibrillation) Current visit: No Status: Chronic (3) CAD (coronary artery disease) Current visit: No Status: Chronic (4) HTN (hypertension) Current visit: No Status: Chronic (5) Hyperlipidemia Current visit: No Status: Chronic (6) Obesity (BMI 30-39.9) Current visit: No Status: Chronic (7) Chronic back pain Current visit: No Status: Chronic (8) Acute hypernatremia Current visit: No Status: Acute Start Lexapro 10mg PO daily to target mood; informed consent given by sister/ DPOA and described symptoms of emerging stacie, which she will alert providers of if they occur. Hospital Course Summary Disclaimer: The visit summary below is not to be considered part of the above Progress Note. Hospital Course: 02/21/17 Psych: Continue current care as patient is improving; consider whether addition of antidepressant may be beneficial in improving mood. 02/22/17 Psych: Start Lexapro 10mg PO daily to target mood; informed consent given by sister/DPOA and described symptoms of emerging stacie, which she will alert providers of if they occur.
[2017-02-22] MEDS: GABAPENTIN 300 MG CAPSULE PO SCH (20:47)
[2017-02-22] MEDS: ROSUVASTATIN 5 MG TABLET PO SCH (20:47)
[2017-02-22] MEDS: TAMSULOSIN 0.4 MG CAPSULE PO SCH (20:47)
[2017-02-22] MEDS: MELATONIN 5 MG TABLET PO SCH (20:47)
[2017-02-23] MEDS: CHLORTHALIDONE 25 MG TABLET PO SCH (09:05)
[2017-02-23] MEDS: DIVALPROEX SPRINKLE 125 MG CAPSULE PO SCH ×2 (09:05→20:21)
[2017-02-23] MEDS: APIXABAN 5 MG TABLET PO SCH ×2 (09:05→20:19)
[2017-02-23] MEDS: LISINOPRIL/HCTZ 20/12.5 MG TABLET PO SCH (09:06)
[2017-02-23] MEDS: ESCITALOPRAM 10 MG TABLET PO SCH (09:06)
[2017-02-23] MEDS: FOLIC ACID 1 MG TABLET PO SCH (09:06)
[2017-02-23] MEDS: GENTAMICIN 0.3% EYE DROPS 15ml EACH EYE SCH ×4 (09:06→20:21)
--- NOTE | 2017-02-23 16:20 | Neuropsych Progress Note ---
Gener[facility] Subjective Date: 02/24/17 - Sujective/Severity of Illness Medications: Acetaminophen (Tylenol) 650 mg PO Q6H PRN PRN Reason: Pain Apixaban (Eliquis) 5 mg PO BID [facility] Last Admin: 02/23/17 09:05 Dose: 5 mg Chlorthalidone (Hygroton) 25 mg PO [facility] Last Admin: 02/23/17 09:05 Dose: 25 mg Divalproex Sodium (Depakote Sprinkle) 250 mg PO DAILY [facility] Last Admin: 02/23/17 09:05 Dose: 250 mg Divalproex Sodium (Depakote Sprinkle) 500 mg PO [facility] Last Admin: 02/22/17 20:48 Dose: 500 mg Escitalopram Oxalate (Lexapro) 10 mg PO DAILY [facility] Last Admin: 02/23/17 09:06 Dose: 10 mg Folic Acid (Folate) 1 mg PO DAILY [facility] Last Admin: 02/23/17 09:06 Dose: 1 mg Gabapentin (Neurontin) 300 mg PO [facility] Last Admin: 02/22/17 20:47 Dose: 300 mg Gentamicin Sulfate (Garamycin O/S) 1 drop EACH EYE QID [facility] Last Admin: 02/23/17 12:28 Dose: 1 drop Lisinopril/HCTZ (Prinzide 20/12.5) 1 tab PO DAILY [facility] Last Admin: 02/23/17 09:06 Dose: 1 tab Lorazepam (Ativan) 0.5 mg PO Q6H PRN PRN Reason: Extreme agitation Lorazepam (Ativan Inj) 0.5 mg IM Q6H PRN PRN Reason: Extreme agitation Melatonin (Melatonin) 10 mg PO [facility] Last Admin: 02/22/17 20:47 Dose: 10 mg Potassium Chloride (K-Dur) 20 meq PO [facility] Last Admin: 02/23/17 09:05 Dose: 20 meq Rosuvastatin Calcium (Crestor) 5 mg PO [facility] Last Admin: 02/22/17 20:47 Dose: 5 mg Tamsulosin HCl (Flomax) 0.4 mg PO [facility] Last Admin: 02/22/17 20:47 Dose: 0.4 mg Subjective: Patient seen and chart reviewed. Case discussed with treatment team. On interview, patient seems more confused than previous. He has significant speech latency and seems to have some difficulty swallowing - which seems worse during times of confusion like this. He is able to tell me month and year. He states he would like to go back to living with his sister after discharge. Patient denies any SI, HI or AVH to me. However, later on -- he reports having AH to SW and states these have been occurring sometime. Etiology unclear ( delirium vs. depression vs. progression of dementia). Patient denies any adverse side effects related to psychotropic medications. Nursing staff report patient has been pleasant on the unit with no significant behavioral difficulties. Patient has been adherent with medications. Patient slept 7.5 hours overnight. VSS. Patient is eating well. Psychotropic PRNs required in the past 24 hours: none. Again discussed patient's care with his sister and discussed whether symptoms could be due to psychosis, thought-blocking. Discussed trial of Risperdal if needed. At her request, discussed with her daughter (patient's niece) as well. They will decide tomorrow re: use of risperidone, which patient has been on in the past. Start Time: 13:00 Stop Time: 13:40 Care: >50% of this visit spent in counseling/coordination care. Mental Status Exam Vitals: Last Vital Signs Temp 98.2 F 02/23/17 08:00 Pulse 66 02/23/17 08:00 Resp 20 02/23/17 08:00 BP 140/67 H 02/23/17 08:00 Pulse Ox 91 02/23/17 08:00 Height: 1.68 m Weight: 103 kg - Mental Status Exam Muscle Strength/Tone: Normal Dressing: Casual Grooming: Fair Attitude: Cooperative Motor Activity: Retardation Eye Contact: Poor Speech: Slowed Volume: Soft Rhythm: Other (short responses) Orientation: Disoriented to time, Oriented to person, Oriented to place Mood: Depressed Affect: Sad (seems very confused) Rate of Thoughts: Delayed Thought Organization: Confused Abstract Reasoning: Poor abstract reasoning Thought Content: Ruminations (anxiety about family member's safety, mostly illogical) Perception/Psychotic: Other (Unclear - patient reported AH to SW, thought- blocking leading to delay in responses?) Language: Naming Intact Fund of Knowledge: Poor fund of knowledge Memory: Poor-recent Suicidal Ideation: Denies Homicidal Ideation: Denies Insight: Limited Judgement: Limited Impulse Control: Fair - Laboratory Result Diagrams: 02/24/17 07:45 02/24/17 07:45 Assessment and Plan (1) Major 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 Problem details: Due to vascular changes and frontotemporal disease R/O Medication-induced delirium Current visit: No Status: Chronic (2) PAF (paroxysmal atrial fibrillation) Current visit: No Status: Chronic (3) CAD (coronary artery disease) Current visit: No Status: Chronic (4) HTN (hypertension) Current visit: No Status: Chronic (5) Hyperlipidemia Current visit: No Status: Chronic (6) Obesity (BMI 30-39.9) Current visit: No Status: Chronic (7) Chronic back pain Current visit: No Status: Chronic (8) Acute hypernatremia Current visit: No Status: Acute Have discussed trial of Risperidone if needed with sister/TAN; she will give answer tomorrow. Hospital Course Summary Disclaimer: The visit summary below is not to be considered part of the above Progress Note. Hospital Course: 02/21/17 Psych: Continue current care as patient is improving; consider whether addition of antidepressant may be beneficial in improving mood. 02/22/17 Psych: Start Lexapro 10mg PO daily to target mood; informed consent given by sister/DPDARRYN and described symptoms of emerging stacie, which she will alert providers of if they occur. 02/23/17 Psych: Have discussed trial of Risperidone if needed with sister/TAN; she will give answer tomorrow.
--- NOTE | 2017-02-23 17:32 | Progress Note ---
- Date 02/23/17 Subjective: no acute issues called overnight. no major changes since yesterday. patient still needs to be led to do a lot of his ADL's but this isn't changed. no conjunctival injection and this remains resolved. no vision changes, blurry vision, photophobia, meningeal symptoms, headaches, skin changes, new rashes, fevers, chills, fatigue, weakness, falls, trauma, injuries, ear pain, sinus pain , sore throat, dizziness, syncope, near-syncope. no behavioral issues since admission. ROS negative for hallucinations, delusions, psychosis, stacie, depression, anxiety, altered mentation/sensorum, obtundation or other psychiatric changes. no runny nose. no chest pain, SOA, orthopnea, PND, new edema, leg asymmetry, changes in exertional tolerance, palpitations, cough, sputum production, hemoptysis, abdominal pain, GERD symptoms, nausea, vomiting, appetite changes, night sweats, constitutional symptoms, hematemesis, coffee ground emesis, melena, BRBPR, constipation, diarrhea, bloody/black stools. no boggy/painful/inflamed joints. no muscle or joint aches. no dysuria, hematuria , urinary frequency, flank pain, nocturia, urinary/bowel incontinance, urinary retention, other urinary symptoms/changes. no homicidal/suicidal ideations. nursing notes no issues of concern. tremor from admission has continued to stay resolved. no new issues otherwise at this time. Objective Vital signs: Temperature 98.9 F 02/23/17 16:00 Pulse Rate 65 02/23/17 16:00 Respiratory Rate 20 02/23/17 16:00 Blood Pressure 121/66 02/23/17 16:00 Pulse Oximetry 93 02/23/17 16:00 Height/Weight/BMI: Height 1.68 m Weight 103 kg Body Mass Index 36.8 - Constitutional Present: no acute distress, obese, cooperative. Absent: thin, cachectic, diaphoretic, disheveled, combative, agitated, somnolent, obtunded - Routine HEENT Exam Head: Present: normocephalic, atraumatic Eye: Absent: periorbital ecchymosis, periorbital swelling, proptosis ENT: Present: mucous membranes moist - Routine Respiratory Exam Present: CTA bilaterally. Absent: accessory muscle use, patient mechanically ventilated, dyspnea, decreased breath sounds, prolonged expiratory phase, rales , respiratory distress, rhonchi, stridor, wheezes, crackles, distant breath sounds, diminished air movement Comments: lung sounds heard in all lung berman b/l at this time. all findings above bilateral unless otherwise noted. - Routine Cardiovascular Exam Present: RRR Comments: no new murmurs. cardiac exam unchanged from previous baseline. legs symmetrical and compartments soft b/l in LE's at this time. clinically well perfused in all 4 extremities b/l at this time. - Routine Abdominal Exam Present: soft (x4.), normoactive bowel sounds (X4.), non distended (X4.), non tender (x4.). Absent: tenderness (X4.), distended (x4.), rebound, guarding, firm, rigid, organomegaly, mass Comments: no ascites or jaundice. - Routine Exam Comments: no tenderness over bladder area. no clinical evidence of upper UTI at this time. - Routine Extremities Exam Absent: cyanosis, joint swelling, pallor, extremity cold to touch - Routine Back/Spine/Pelvis Exam Comments: see above. - Routine Musculoskeletal Exam Musculoskeletal: Present: moving extremities well - Routine Skin Exam Present: intact Comments: no skin changes from previous baseline. - Routine Neurological Exam Present: alert, oriented X3 no changes from previous. no photophobia. no conjunctival injection b/l at this time. no changes in eye exam from yesterday's encounter otherwise at this time. no face swelling. no changes neurologically otherwise at this time. no clinical evidence of depression, anxiety, altered mentation/sensorum/alertness, obtundation, confusion, psychosis, delerium, encephalopathy. affect still a bit flat but affect and cognition unchanged from usual baseline. no tremors at this time. - Routine Lymphatic Exam Lymphatic: Absent: lymphedema - Routine Psychiatric Exam Present: normal affect (for patient.), normal thought process (for patient.), cooperative. Absent: auditory hallucinations, visual hallucinations, tactile hallucinations, depressed, anxious, agitated, paranoid, manic Comments: see the above. Results - Labs CBC & Chem 7: 02/22/17 06:52 02/22/17 06:52 Assessment and Plan Assessment and Plan: altered mental status, delerium versus progressing dementia. psychiatry notes frontotemporal dementia as leading candidate for cause. new onset tremor, likely secondary to essential tremor versus divalproex. no clinical evidence of parkinson's. resolved. acute bilateral conjunctivitis, resolved. atrial fibrillation HTN hyperlipidemia CAD multifactorial neuropathy folic acid deficiency chronic multifactorial anemia night-time leg cramps, resolved. -continue generations unit and vital signs, diet, activity level, therapies and other admission orders per psychiatry who is primary. continue cool compresses prn. clinically patient at his usual baseline for me today. considering utility of MRI/MRA head/neck currently. -see previous notes for other testing and results from this stay. -cbc and cmp in the AM. -consulted Dr. Gant of neurology and he doesn't feel this is parkinson's , agrees with above management. psychiatry has started lexapro which patient is tolerating well thus far. otherwise they're not changing much in the way of medications at this time. -continue current gentamicin eye drops, home folic acid, home divalproex, gabapentin, eliquis, chlorathaladone, KCl, lisinorpial/HCTZ, tylenol prn, current ativan, melatonin, lexapro and other management of patient's home and current psychiatric meds per psychiatry at this time. -further management pending the above. bph -continue home flomax all other chronic medical conditions stable and no changes to plan of care at this time. ppx -continue home Eliquis for DVT ppx. -continue current PO diet for GI ppx. -FULL CODE -dispo as per primary team. see previous notes for details. DVT Prophylaxis: Eliquis (continue home Eliquis) GI Prophylaxis: other (continue PO diet.) Resuscitation Status: Full Code - Time spent with patient Time with patient PN: 25 minutes - Physician Narrative Narrative: Date: 02/23/17 Time: 1729 Sepsis Assessment - Evaluation Severe Sepsis: none seen
[2017-02-23] MEDS: GABAPENTIN 300 MG CAPSULE PO SCH (20:18)
[2017-02-23] MEDS: MELATONIN 5 MG TABLET PO SCH (20:19)
[2017-02-23] MEDS: ROSUVASTATIN 5 MG TABLET PO SCH (20:19)
[2017-02-23] MEDS: RisperiDONE ODT 0.5 MG TABLET PO SCH (20:20)
[2017-02-23] MEDS: TAMSULOSIN 0.4 MG CAPSULE PO SCH (20:21)
[2017-02-24] MEDS: DIVALPROEX SPRINKLE 125 MG CAPSULE PO SCH ×2 (08:13→19:43)
[2017-02-24] MEDS: APIXABAN 5 MG TABLET PO SCH ×2 (08:13→19:44)
[2017-02-24] MEDS: FOLIC ACID 1 MG TABLET PO SCH (08:13)
[2017-02-24] MEDS: LISINOPRIL/HCTZ 20/12.5 MG TABLET PO SCH (08:13)
[2017-02-24] MEDS: ESCITALOPRAM 10 MG TABLET PO SCH (08:13)
[2017-02-24] MEDS: GENTAMICIN 0.3% EYE DROPS 15ml EACH EYE SCH ×4 (08:14→19:45)
[2017-02-24] MEDS: CHLORTHALIDONE 25 MG TABLET PO SCH (08:14)
--- NOTE | 2017-02-24 13:31 | Progress Note ---
Subjective: this note entered by mistake. is is not the correct medicine note from this day. please see other progress note from today for the actual note. Objective Vital signs: Temperature 98.4 F 02/24/17 08:00 Pulse Rate 86 02/24/17 08:00 Respiratory Rate 18 02/24/17 08:00 Blood Pressure 151/71 H 02/24/17 08:00 Pulse Oximetry 92 02/24/17 08:00 Height/Weight/BMI: Height 1.68 m Weight 103 kg Body Mass Index 36.8 Results - Labs CBC & Chem 7: 02/24/17 07:45 02/24/17 07:45
--- NOTE | 2017-02-24 14:22 | Neuropsych Progress Note ---
Generations Subjective Date: 02/24/17 - Sujective/Severity of Illness Medications: Acetaminophen (Tylenol) 650 mg PO Q6H PRN PRN Reason: Pain Apixaban (Eliquis) 5 mg PO BID [facility] Last Admin: 02/24/17 08:13 Dose: 5 mg Chlorthalidone (Hygroton) 25 mg PO [facility] Last Admin: 02/24/17 08:14 Dose: 25 mg Divalproex Sodium (Depakote Sprinkle) 250 mg PO DAILY [facility] Last Admin: 02/24/17 08:13 Dose: 250 mg Divalproex Sodium (Depakote Sprinkle) 500 mg PO [facility] Last Admin: 02/23/17 20:21 Dose: 500 mg Escitalopram Oxalate (Lexapro) 10 mg PO DAILY [facility] Last Admin: 02/24/17 08:13 Dose: 10 mg Folic Acid (Folate) 1 mg PO DAILY [facility] Last Admin: 02/24/17 08:13 Dose: 1 mg Gabapentin (Neurontin) 300 mg PO [facility] Last Admin: 02/23/17 20:18 Dose: 300 mg Gentamicin Sulfate (Garamycin O/S) 1 drop EACH EYE QID [facility] Last Admin: 02/24/17 13:49 Dose: 1 drop Lisinopril/HCTZ (Prinzide 20/12.5) 1 tab PO DAILY [facility] Last Admin: 02/24/17 08:13 Dose: 1 tab Lorazepam (Ativan) 0.5 mg PO Q6H PRN PRN Reason: Extreme agitation Lorazepam (Ativan Inj) 0.5 mg IM Q6H PRN PRN Reason: Extreme agitation Melatonin (Melatonin) 10 mg PO [facility] Last Admin: 02/23/17 20:19 Dose: 10 mg Potassium Chloride (K-Dur) 20 meq PO [facility] Last Admin: 02/24/17 08:13 Dose: 20 meq Risperidone (Risperdal M) 0.5 mg PO [facility] Last Admin: 02/23/17 20:20 Dose: 0.5 mg Rosuvastatin Calcium (Crestor) 5 mg PO [facility] Last Admin: 02/23/17 20:19 Dose: 5 mg Tamsulosin HCl (Flomax) 0.4 mg PO [facility] Last Admin: 02/23/17 20:21 Dose: 0.4 mg Subjective: Patient seen and chart reviewed. Case discussed with treatment team. On interview, patient is much less confused. Sister is visiting this morning and also feels he is doing well today. No sign of responding to internal stimuli , delay is now gone and patient doesn't appear to be having difficulty swallowing - symptoms likely due to delirium due to fluctuant nature. He now denies AH and says he doesn't know why he would have said that. He continues to be ruminative in regards to dementia diagnosis; attempted to provide reassurance. Patient denies any adverse side effects related to psychotropic medications. Nursing staff report patient has been pleasant on the unit with no significant behavioral difficulties. Patient has been adherent with medications. Patient slept 8 hours overnight. VSS. Patient is eating well. Psychotropic PRNs required in the past 24 hours: none. Sister gave consent to trial of Risperdal if needed but due to significant change from yesterday, will monitor symptoms through day as to whether an additional medication is necessary. Start Time: 13:20 Stop Time: 13:40 Mental Status Exam Vitals: Last Vital Signs Temp 98.4 F 02/24/17 08:00 Pulse 86 02/24/17 08:00 Resp 18 02/24/17 08:00 BP 151/71 H 02/24/17 08:00 Pulse Ox 92 02/24/17 08:00 Height: 1.68 m Weight: 103 kg - Mental Status Exam Muscle Strength/Tone: Normal Dressing: Casual Grooming: Fair Attitude: Cooperative Motor Activity: Retardation ( improved from yesterday) Eye Contact: Poor Speech: Slowed Volume: Soft Rhythm: Appropriate Rhythm Sensory: Alert Orientation: Oriented X4 Mood: Neutral Affect: Sad Rate of Thoughts: Delayed Thought Organization: Organized Associations: Intact Abstract Reasoning: Poor abstract reasoning Thought Content: Ruminations (anxiety about family member's safety, mostly illogical), Helplessness Perception/Psychotic: Other (Now denies AVH) Language: Naming Intact Fund of Knowledge: Poor fund of knowledge Memory: Poor-recent Suicidal Ideation: Denies Homicidal Ideation: Denies Insight: Limited Judgement: Limited Impulse Control: Fair - Laboratory Result Diagrams: 02/24/17 07:45 02/24/17 07:45 Laboratory Results - last 24 hr 02/24/17 02/24/17 07:45 07:45 WBC 8.7 RBC 4.87 Hgb 14.2 Hct 44.4 MCV 91.2 MCH 29.2 MCHC 32.0 RDW Std Deviation 47.6 Plt Count 240 MPV 10.1 Immature Gran % (Auto) 0.1 Neut % (Auto) 54.7 Lymph % (Auto) 33.8 [place] % (Auto) 9.4 H Eos % (Auto) 1.8 Baso % (Auto) 0.2 Neut # (Auto) 4.8 Lymph # (Auto) 2.9 [place] # (Auto) 0.8 Eos # (Auto) 0.2 Baso # (Auto) 0.0 Abs Immat Gran (auto) 0.01 Turbidity < 20 Sodium 141 Potassium 3.9 Chloride 98 Carbon Dioxide 29 Anion Gap 14 BUN 34.0 H Creatinine 1.0 GFR Calculation 74 BUN/Creatinine Ratio 34 H Glucose 99 Calculated Osmolality 279 Calcium 9.4 Total Bilirubin 0.40 Icterus Index < 2 AST 27 ALT 31 Alkaline Phosphatase 57 D Total Protein 8.6 H Albumin 4.7 Globulin 3.9 H Albumin/Globulin Ratio 1.2 Specimen Hemolysis < 15 Assessment and Plan (1) Major 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 Problem details: Due to vascular changes and frontotemporal disease R/O Medication-induced delirium Current visit: No Status: Chronic (2) PAF (paroxysmal atrial fibrillation) Current visit: No Status: Chronic (3) CAD (coronary artery disease) Current visit: No Status: Chronic (4) HTN (hypertension) Current visit: No Status: Chronic (5) Hyperlipidemia Current visit: No Status: Chronic (6) Obesity (BMI 30-39.9) Current visit: No Status: Chronic (7) Chronic back pain Current visit: No Status: Chronic (8) Acute hypernatremia Current visit: No Status: Acute Patient's clinical presentation has changed significantly from 02/22 to 02/23 to . Will monitor today though patient is now denying AH he previously reported and seems much less confused -- may still be part of delirium rather than mood disorder. Sister has consented to Risperdal trial if warranted but patient is doing well this morning. Hospital Course Summary Disclaimer: The visit summary below is not to be considered part of the above Progress Note. Hospital Course: 02/21/17 Psych: Continue current care as patient is improving; consider whether addition of antidepressant may be beneficial in improving mood. 02/22/17 Psych: Start Lexapro 10mg PO daily to target mood; informed consent given by sister/DPDARRYN and described symptoms of emerging stacie, which she will alert providers of if they occur. 02/23/17 Psych: Have discussed trial of Risperidone if needed with sister/TAN; she will give answer tomorrow. 02/24/17 Psych: Patient's clinical presentation has changed significantly from to 02/23 to 02/24. Will monitor today though patient is now denying AH he previously reported and seems much less confused -- may still be part of delirium rather than mood disorder. Sister has consented to Risperdal trial if warranted but patient is doing well this morning.
[2017-02-24] MEDS: ROSUVASTATIN 5 MG TABLET PO SCH (19:42)
[2017-02-24] MEDS: TAMSULOSIN 0.4 MG CAPSULE PO SCH (19:42)
[2017-02-24] MEDS: GABAPENTIN 300 MG CAPSULE PO SCH (19:44)
[2017-02-24] MEDS: MELATONIN 5 MG TABLET PO SCH (19:45)
[2017-02-24] MEDS: RisperiDONE ODT 0.5 MG TABLET PO SCH (19:46)
--- NOTE | 2017-02-24 22:26 | Progress Note ---
- Date 02/24/17 Subjective: no acute issues overnight. cognition appears to be at baseline but still has some fluctuating confusion at times. no behavioral issues. no hallucinations, delusions, altered mentation/sensorum/alertness. no headaches, stroke symptoms , syncope, dizziness, near-syncope, focal neurologic deficits, seizure symptoms , ear pain, sinus pain, sore throat, skin changes, new rashes, fevers, chills, body aches, fatigue, weakness, falls, trauma, injuries, runny nose, chest pain, SOA, orthopnea, PND, new edema. no palpitations, cough, sputum production, hemoptysis, wandering, manic symptoms, depression symptoms. conjunctival injection from admission continues to stay resolved. tremor from admission continues to stay resolved. no appetite changes and patient states he's been eating/drinking well. had X1 normal BM since last time we met per patient. no homicidal/suicidal ideations. no abdominal pain, GERD symptoms, nausea, vomiting, diarrhea, constipation, bloody/black stools, hematemesis, coffee ground emesis, melena, BRBPR, swollen/boggy/painful joints or muscles, dysuria, hematuria, urinary frequency, flank pain, nocturia, urinary/bowel incontinance, urinary retention, other urinary changes/symptoms, photophobia, meningeal symptoms, eye irritation/pain, vision changes/blurry vision/loss of vision. still needs to be cued frequently from ADL's but this isn't changed any. no new issues otherwise at this time. Objective Vital signs: Temperature 99.0 F 02/24/17 21:37 Pulse Rate 74 02/24/17 21:37 Respiratory Rate 16 02/24/17 21:37 Blood Pressure 124/65 02/24/17 21:37 Pulse Oximetry 94 02/24/17 21:37 Height/Weight/BMI: Height 1.68 m Weight 103 kg Body Mass Index 36.8 - Constitutional Present: no acute distress, obese, cooperative. Absent: thin, cachectic, diaphoretic, disheveled, combative, agitated, somnolent, obtunded - Routine HEENT Exam Head: Present: normocephalic, atraumatic Eye: Absent: periorbital ecchymosis, periorbital swelling, exophthalmos, proptosis ENT: Present: mucous membranes moist - Routine Respiratory Exam Present: CTA bilaterally. Absent: accessory muscle use, patient mechanically ventilated, dyspnea, decreased breath sounds, prolonged expiratory phase, rales , respiratory distress, rhonchi, stridor, wheezes, crackles, distant breath sounds, diminished air movement Comments: no conjunctival injection b/l at this time. no photophobia. no changes in eye exam otherwise from previous at this time. no clinical evidence of meningitis at this time. - Routine Cardiovascular Exam Present: RRR Comments: no new murmurs as compared to previous. no new edema. legs symmetrical and compartments soft b/l in LE's at this time. clinically well perfused in all 4 extremities b/l at this time. - Routine Abdominal Exam Present: soft (X4.), normoactive bowel sounds (X4.), non distended (X4.), non tender (x4.). Absent: tenderness (X4.), distended (X4.), rebound, guarding, firm, rigid, organomegaly, mass Comments: no distension or ascites. - Routine Rectal Exam Comments: see the above. no changes in eye exam from yesterday's encounter. - Routine Exam Comments: no tenderness over bladder area. no clinical evidence of upper UTI at this time. - Routine Extremities Exam Present: non tender, extremity cold to touch. Absent: cyanosis, joint swelling , pallor - Routine Back/Spine/Pelvis Exam Comments: see above. - Routine Musculoskeletal Exam Musculoskeletal: Present: no joint swelling, no erythema, moving extremities well. Absent: joint erythera, joint swelling - Routine Skin Exam Present: intact Comments: no skin changes from previous to uncovered areas. - Routine Neurological Exam Present: alert, oriented X3 no changes from previous. no photophobia as noted above. no conjunctival injection b/l at this time as noted above. no changes in eye exam from yesterday's encounter otherwise at this time as noted above. no face swelling. no changes neurologically otherwise at this time. no clinical evidence of depression, anxiety, altered mentation/sensorum/alertness, obtundation, confusion, psychosis, delerium, encephalopathy above patient's usual baseline as I speak with patient right now. affect and cognition at patient's usual baseline. no tremors at this time. - Routine Lymphatic Exam Lymphatic: Absent: lymphedema - Routine Psychiatric Exam Present: normal affect (for patient.), normal thought process (for patient. ), cooperative. Absent: suicidal ideation, homicidal ideation, auditory hallucinations, visual hallucinations, tactile hallucinations, depressed, anxious, agitated, paranoid, manic Comments: see the above. Results - Labs CBC & Chem 7: 02/24/17 07:45 02/24/17 07:45 Assessment and Plan Assessment and Plan: altered mental status, delerium versus progressing dementia. psychiatry notes frontotemporal dementia as leading candidate for cause. new onset tremor, likely secondary to essential tremor versus divalproex. no clinical evidence of parkinson's. resolved. acute bilateral conjunctivitis, resolved. atrial fibrillation HTN hyperlipidemia CAD multifactorial neuropathy folic acid deficiency chronic multifactorial anemia night-time leg cramps, resolved. -continue generations unit and vital signs, diet, activity level, therapies and other admission orders per psychiatry who is primary. continue cool compresses prn. clinically patient at his usual baseline for me today. considering utility of MRI/MRA head/neck currently but it looks like this wouldn't contribute much to the workup right now. -cbc and cmp today normal. see previous notes for other testing and results from this stay. -consulted Dr. Gant of neurology and he doesn't feel this is parkinson's , agrees with current management. psychiatry has started lexapro which patient is tolerating well thus far and opening up the option for risperdal prn. otherwise they're not changing much in the way of medications at this time. -continue current folic acid, divalproex, gabapentin, eliquis, chlorathaladone, KCl, lisinorpial/HCTZ, tylenol prn, ativan prn, melatonin, lexapro and other management of patient's home and current psychiatric meds per psychiatry at this time. -d/c gentamycin eye drops as patient has completed the course. -further management pending the above. bph -continue home flomax all other chronic medical conditions stable and no changes to plan of care at this time. ppx -continue home Eliquis for DVT ppx. -continue current PO diet for GI ppx. -FULL CODE -dispo as per primary team. see previous notes for details. DVT Prophylaxis: Eliquis (continue patient's home PO eliquis.) GI Prophylaxis: other (continue PO diet.) Resuscitation Status: Full Code - Time spent with patient Time with patient PN: 25 minutes - Physician Narrative Narrative: Date: 02/24/17 Time: 2217 Sepsis Assessment - Evaluation Severe Sepsis: none seen
[2017-02-25] MEDS: APIXABAN 5 MG TABLET PO SCH ×3 (03:52→20:17)
[2017-02-25] MEDS: DIVALPROEX SPRINKLE 125 MG CAPSULE PO SCH ×3 (03:52→20:19)
[2017-02-25] MEDS: RisperiDONE ODT 0.5 MG TABLET PO SCH ×2 (03:52→20:17)
[2017-02-25] MEDS: MELATONIN 5 MG TABLET PO SCH ×2 (03:52→20:17)
[2017-02-25] MEDS: TAMSULOSIN 0.4 MG CAPSULE PO SCH ×2 (03:52→20:17)
[2017-02-25] MEDS: GABAPENTIN 300 MG CAPSULE PO SCH ×2 (03:52→20:17)
[2017-02-25] MEDS: ROSUVASTATIN 5 MG TABLET PO SCH ×2 (03:52→20:17)
[2017-02-25] MEDS: GENTAMICIN 0.3% EYE DROPS 15ml EACH EYE SCH ×3 (03:54→20:21)
[2017-02-25] MEDS: CHLORTHALIDONE 25 MG TABLET PO SCH (08:40)
[2017-02-25] MEDS: FOLIC ACID 1 MG TABLET PO SCH (08:41)
[2017-02-25] MEDS: LISINOPRIL/HCTZ 20/12.5 MG TABLET PO SCH (08:41)
[2017-02-25] MEDS: ESCITALOPRAM 10 MG TABLET PO SCH (08:41)
--- NOTE | 2017-02-25 08:50 | Progress Note ---
- Date 02/25/17 Subjective: this progress note entered in error. please disregard this note. Objective Vital signs: Temperature 99.0 F 02/24/17 21:37 Pulse Rate 74 02/24/17 21:37 Respiratory Rate 16 02/24/17 21:37 Blood Pressure 124/65 02/24/17 21:37 Pulse Oximetry 94 02/24/17 21:37 Height/Weight/BMI: Height 1.68 m Weight 103 kg Body Mass Index 36.8 Results - Labs CBC & Chem 7: 02/24/17 07:45 02/24/17 07:45 Hospital Course Summary Disclaimer: The visit summary below is not to be considered part of the above Progress Note. Hospital Course: 02/21/17 Psych: Continue current care as patient is improving; consider whether addition of antidepressant may be beneficial in improving mood. 02/22/17 Psych: Start Lexapro 10mg PO daily to target mood; informed consent given by sister/TAN and described symptoms of emerging stacie, which she will alert providers of if they occur. 02/23/17 Psych: Have discussed trial of Risperidone if needed with sister/TAN; she will give answer tomorrow. 02/24/17 Psych: Patient's clinical presentation has changed significantly from to 02/23 to 02/24. Will monitor today though patient is now denying AH he previously reported and seems much less confused -- may still be part of delirium rather than mood disorder. Sister has consented to Risperdal trial if warranted but patient is doing well this morning.
--- NOTE | 2017-02-25 14:24 | Neuropsych Progress Note ---
[facility] Subjective Date: 02/25/17 - Sujective/Severity of Illness Medications: Acetaminophen (Tylenol) 650 mg PO Q6H PRN PRN Reason: Pain Apixaban (Eliquis) 5 mg PO BID [facility] Last Admin: 02/25/17 08:41 Dose: 5 mg Chlorthalidone (Hygroton) 25 mg PO [facility] Last Admin: 02/25/17 08:40 Dose: 25 mg Divalproex Sodium (Depakote Sprinkle) 250 mg PO DAILY [facility] Last Admin: 02/25/17 08:41 Dose: 250 mg Divalproex Sodium (Depakote Sprinkle) 500 mg PO [facility] Last Admin: 02/25/17 03:52 Dose: Not Given Escitalopram Oxalate (Lexapro) 10 mg PO DAILY [facility] Last Admin: 02/25/17 08:41 Dose: 10 mg Folic Acid (Folate) 1 mg PO DAILY [facility] Last Admin: 02/25/17 08:41 Dose: 1 mg Gabapentin (Neurontin) 300 mg PO [facility] Last Admin: 02/25/17 03:52 Dose: Not Given Lisinopril/HCTZ (Prinzide 20/12.5) 1 tab PO DAILY [facility] Last Admin: 02/25/17 08:41 Dose: 1 tab Lorazepam (Ativan) 0.5 mg PO Q6H PRN PRN Reason: Extreme agitation Last Admin: 02/25/17 03:53 Dose: 0.5 mg Lorazepam (Ativan Inj) 0.5 mg IM Q6H PRN PRN Reason: Extreme agitation Melatonin (Melatonin) 10 mg PO [facility] Last Admin: 02/25/17 03:52 Dose: Not Given Potassium Chloride (K-Dur) 20 meq PO [facility] Last Admin: 02/25/17 08:40 Dose: 20 meq Risperidone (Risperdal M) 0.5 mg PO [facility] Last Admin: 02/25/17 03:52 Dose: Not Given Rosuvastatin Calcium (Crestor) 5 mg PO [facility] Last Admin: 02/25/17 03:52 Dose: Not Given Tamsulosin HCl (Flomax) 0.4 mg PO [facility] Last Admin: 02/25/17 03:52 Dose: Not Given Subjective: Patient seen and chart reviewed. Case discussed with treatment team. On interview, patient is again somewhat confused (but not as bad as he was 2 days ago). For example, he was fully oriented yesterday and today can only tell me the year, with increased delay in thoughts. His mood seems to have improved from previous though he is still sad about having dementia, ruminative about losing license, etc. Patient denies any adverse side effects related to psychotropic medications. Nursing staff report patient has been pleasant on the unit with no significant behavioral difficulties. Patient has been adherent with medications. Patient slept only 1.5 hours overnight -- the reason for this is unclear though I question delirium further due to waxing/waning nature of confusion and sleep disturbance without presence of other manic symptoms. VSS. Patient is eating well. Psychotropic PRNs required in the past 24 hours: none. Start Time: 10:40 Stop Time: 11:00 Mental Status Exam Vitals: Last Vital Signs Temp 98.1 F 02/25/17 08:00 Pulse 92 02/25/17 08:00 Resp 16 02/25/17 08:00 BP 145/69 H 02/25/17 08:00 Pulse Ox 91 02/25/17 08:00 Height: 1.68 m Weight: 103 kg - Mental Status Exam Muscle Strength/Tone: Normal Dressing: Casual Grooming: Fair Attitude: Cooperative Motor Activity: Retardation ( improved from yesterday) Eye Contact: Fair Speech: Slowed Volume: Soft Rhythm: Appropriate Rhythm Orientation: Disoriented to time, Oriented to person, Oriented to place Mood: Neutral Affect: Blunted Rate of Thoughts: Delayed Thought Organization: Organized Associations: Intact Abstract Reasoning: Poor abstract reasoning Thought Content: Ruminations (about dementia diagnosis), Helplessness Perception/Psychotic: Other (Now denies AVH) Language: Naming Intact Fund of Knowledge: Poor fund of knowledge Memory: Poor-recent Suicidal Ideation: Denies Homicidal Ideation: Denies Insight: Limited Judgement: Limited Impulse Control: Fair - Laboratory Result Diagrams: 02/24/17 07:45 02/24/17 07:45 Assessment and Plan (1) Major 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 Problem details: Due to vascular changes and frontotemporal disease R/O Medication-induced delirium or delirium due to another unknown etiology Sister has previously reported a past history of manic symptoms as well though her report of his symptoms varies at times. Current visit: No Status: Chronic (2) PAF (paroxysmal atrial fibrillation) Current visit: No Status: Chronic (3) CAD (coronary artery disease) Current visit: No Status: Chronic (4) HTN (hypertension) Current visit: No Status: Chronic (5) Hyperlipidemia Current visit: No Status: Chronic (6) Obesity (BMI 30-39.9) Current visit: No Status: Chronic (7) Chronic back pain Current visit: No Status: Chronic (8) Acute hypernatremia Current visit: No Status: Acute Discussed care with patient's outpatient psychiatrist Dr. Kari Victoria. We agreed to continue current medications and both agreed that placement would be ideal to minimize agitation/confusion at home. Will discuss as much with sister. Discharge to home with plan to f/u with Dr. Victoria as an outpatient. Hospital Course Summary Disclaimer: The visit summary below is not to be considered part of the above Progress Note. Hospital Course: 02/21/17 Psych: Continue current care as patient is improving; consider whether addition of antidepressant may be beneficial in improving mood. 02/22/17 Psych: Start Lexapro 10mg PO daily to target mood; informed consent given by sister/TAN and described symptoms of emerging stacie, which she will alert providers of if they occur. 02/23/17 Psych: Have discussed trial of Risperidone if needed with sister/TAN; she will give answer tomorrow. 02/24/17 Psych: Patient's clinical presentation has changed significantly from to 02/23 to 02/24. Will monitor today though patient is now denying AH he previously reported and seems much less confused -- may still be part of delirium rather than mood disorder. Sister has consented to Risperdal trial if warranted but patient is doing well this morning. 02/25/17 Psych: Discussed care with patient's outpatient psychiatrist Dr. Kari Victoria. We agreed to continue current medications and both agreed that placement would be ideal to minimize agitation/confusion at home. Will discuss as much with sister. Discharge to home with plan to f/u with Dr. Victoria as an outpatient.
--- NOTE | 2017-02-25 15:40 | Progress Note ---
- Date 02/25/17 Subjective: no acute issues overnight. did wake up with anxiety and required an ativan prn but no other psychiatric or cognitive changes associated with this. nursing notes no acute issues. in speaking with patient he denies any conjunctival injection, eye irritation, photophobia, double vision, blurry vision but some conjuncitval injection is noted on exam below. ROS negative for delusions, hallucinations, stacie symptoms, depression symptoms, confusion, psychotic symptoms, wandering. no behavior issues. no altered mentation/sensorum/ alertness from usual baseline. no tremors. no headaches, stroke symptoms, syncope, dizziness, near-syncope. still alert and oriented to his previous baseline. no ear pain, sinus pain, sore throat, runny nose, falls, trauma, injuries, skin changes, new rashes, face/periorbital swelling. still stares blankly at time when being asked questions but this isn't changed significantly from previous. no focal neurologic deficits, cranial nerve symptoms, seizure symptoms. he didn't sleep well secondary to anxiety last night but it sounds like this improved after the ativan. no ativan required during the day. no numbness/weakness/tingling/pain in any extremities. denies vision changes of any kind. no eye itching or pain. denies eye matting or discharge. denies homicidal/suicidal ideations. no chest pain, SOA, orthopnea, PND, new edema, leg asymmetry, changes in exertional tolerance, cough, sputum production, hemoptysis, palpitations, abdominal pain, GERD symptoms, nausea, vomiting, diarrhea, constipation, bloody/black stools. patient states he has had a normal BM since our last visit. no dysphagia or aspiration symptoms. no boggy/ inflammed/painful/swollen joints or muscle compartments. no back pain. no dysuria, hematuria, urinary frequency, flank pain, nocturia, urinary/bowel incontinance, urinary retention, polyuria, oliguria, other urinary symptoms/ changes. tremor has continued to stay resolved. Objective Vital signs: Temperature 98.1 F 02/25/17 08:00 Pulse Rate 92 02/25/17 08:00 Respiratory Rate 16 02/25/17 08:00 Blood Pressure 145/69 H 02/25/17 08:00 Pulse Oximetry 91 02/25/17 08:00 Height/Weight/BMI: Height 1.68 m Weight 103 kg Body Mass Index 36.8 - Constitutional Present: no acute distress, obese, cooperative. Absent: thin, cachectic, diaphoretic, disheveled, combative, agitated, somnolent, obtunded - Routine HEENT Exam Head: Present: normocephalic, atraumatic Eye: Absent: periorbital ecchymosis, periorbital swelling, proptosis ENT: Present: mucous membranes moist Comments: there appears to be mild conjuncitval injection returning b/l at this time. no matting down or discharge right now. EOMI. no nystagmus. PERRLA. no face or periorbital swelling. no photophobia. no visual changes or issues at all otherwise and otherwise eye exam unchanged from previous. no clinical evidence of meningitis at this time. no clinical evidence of involvement of uvea, sclera or other deeper layers of eyes. all findings in this section bilateral unless otherwise noted. - Routine Respiratory Exam Present: CTA bilaterally. Absent: accessory muscle use, patient mechanically ventilated, dyspnea, decreased breath sounds, prolonged expiratory phase, rales , respiratory distress, rhonchi, stridor, wheezes, crackles, distant breath sounds, diminished air movement Comments: lung sounds heard in all lung berman b/l at this time. all findings above symmetrical unless otherwise noted. - Routine Cardiovascular Exam Present: RRR Comments: no new murmurs. cardiac exam unchanged from previous. no LE edema b/l at this time. legs symmetrical and compartments soft b/l in LE's at this time. clinically well perfused in all 4 extremities b/l at this time. - Routine Abdominal Exam Present: soft (X4.), normoactive bowel sounds (X4.), non distended (X4.), non tender (X4.). Absent: tenderness (X4.), distended (X4.), rebound, guarding, firm, rigid, organomegaly, mass Comments: no ascites or jaundice. - Routine Exam Comments: no tenderness over bladder area. no clinical evidence of upper UTI at this time. - Routine Extremities Exam Absent: cyanosis, edema, joint swelling, pallor, extremity cold to touch - Routine Back/Spine/Pelvis Exam Comments: see above. - Routine Musculoskeletal Exam Musculoskeletal: Present: no joint swelling, no tenderness, no erythema, moving extremities well. Absent: joint erythera, joint swelling - Routine Skin Exam Present: intact Comments: no skin changes from previous to uncovered areas. - Routine Neurological Exam Present: alert, oriented X3 no changes from previous. no changes neurologically otherwise at this time. no clinical evidence of depression, anxiety, altered mentation/sensorum/ alertness, obtundation, confusion, psychosis, delerium, encephalopathy above patient's usual baseline as I speak with patient today. affect and cognition at patient's usual baseline. no tremors at this time. - Routine Lymphatic Exam Lymphatic: Absent: lymphedema - Routine Psychiatric Exam Present: normal affect (as compared to patient's usual baseline. ), normal thought process (as compared to patient's usual baseline. ), cooperative. Absent: auditory hallucinations, visual hallucinations, tactile hallucinations, depressed, anxious, agitated, paranoid, manic Comments: some what flat affect which is unchanged from previous. see above. Results - Labs CBC & Chem 7: 02/24/17 07:45 02/24/17 07:45 Assessment and Plan Assessment and Plan: altered mental status, delerium versus progressing dementia. psychiatry notes frontotemporal dementia as leading candidate for cause. new onset tremor, likely secondary to essential tremor versus divalproex. no clinical evidence of parkinson's. resolved. acute bilateral conjunctivitis atrial fibrillation HTN hyperlipidemia CAD multifactorial neuropathy folic acid deficiency chronic multifactorial anemia night-time leg cramps, resolved. -continue generations unit and vital signs, diet, activity level, therapies and other admission orders per psychiatry who is primary. continue cool compresses prn. clinically patient at his usual baseline for me today. Dr. Blackman notes in our talk today that MRI/MRA head neck is reasonable. PET scan can be used to differentiate between types of dementia but hard to see how this would change management facilitator. these can be done as outpatient and don't need to be done immediately unless clinical status changes. will talk with psychiatry about it. put patient back on conjunctivitis precautions. -cbc, cmp in the AM. -see previous notes for other testing and results from this stay. -consulted Dr. Gant of neurology and he doesn't feel this is parkinson' s. psychiatry has started lexapro which patient is tolerating well thus far risperdal ordered prn. -continue current folic acid, divalproex, gabapentin, eliquis, chlorathaladone, KCl, lisinorpial/HCTZ, tylenol prn, ativan prn, melatonin, lexapro, crestor and other management of patient's home and current psychiatric meds per psychiatry at this time. -restart gentamicin eye drops. -further management pending the above. bph -continue home flomax all other chronic medical conditions stable and no changes to plan of care at this time. ppx -continue home Eliquis for DVT ppx. -continue current PO diet for GI ppx. -FULL CODE -dispo as per primary team. DVT Prophylaxis: Eliquis (continue home Eliquis.) GI Prophylaxis: other (continue PO diet.) Resuscitation Status: Full Code - Time spent with patient Time with patient PN: 25 minutes - Physician Narrative Narrative: Date: 02/25/17 Time: 9206 Sepsis Assessment - Evaluation Severe Sepsis: none seen
[2017-02-26] MEDS: GENTAMICIN 0.3% EYE DROPS 15ml EACH EYE SCH ×6 (02:57→21:03)
[2017-02-26] MEDS: CHLORTHALIDONE 25 MG TABLET PO SCH (09:13)
[2017-02-26] MEDS: LISINOPRIL/HCTZ 20/12.5 MG TABLET PO SCH (09:14)
[2017-02-26] MEDS: APIXABAN 5 MG TABLET PO SCH ×2 (09:14→21:03)
[2017-02-26] MEDS: DIVALPROEX SPRINKLE 125 MG CAPSULE PO SCH ×2 (09:14→21:04)
[2017-02-26] MEDS: FOLIC ACID 1 MG TABLET PO SCH (09:15)
[2017-02-26] MEDS: ESCITALOPRAM 10 MG TABLET PO SCH (09:16)
--- NOTE | 2017-02-26 12:10 | Neuropsych Progress Note ---
[facility] Subjective Date: 02/26/17 - Sujective/Severity of Illness Medications: Acetaminophen (Tylenol) 650 mg PO Q6H PRN PRN Reason: Pain Last Admin: 02/25/17 20:20 Dose: 650 mg Apixaban (Eliquis) 5 mg PO BID [facility] Last Admin: 02/26/17 09:14 Dose: 5 mg Chlorthalidone (Hygroton) 25 mg PO [facility] Last Admin: 02/26/17 09:13 Dose: 25 mg Divalproex Sodium (Depakote Sprinkle) 250 mg PO DAILY [facility] Last Admin: 02/26/17 09:14 Dose: 250 mg Divalproex Sodium (Depakote Sprinkle) 500 mg PO [facility] Last Admin: 02/25/17 20:19 Dose: 500 mg Escitalopram Oxalate (Lexapro) 10 mg PO DAILY [facility] Last Admin: 02/26/17 09:16 Dose: 10 mg Folic Acid (Folate) 1 mg PO DAILY [facility] Last Admin: 02/26/17 09:15 Dose: 1 mg Gabapentin (Neurontin) 300 mg PO [facility] Last Admin: 02/25/17 20:17 Dose: 300 mg Gentamicin Sulfate (Garamycin O/S) 1 drop EACH EYE Q4HR [facility] Last Admin: 02/26/17 11:26 Dose: 1 drop Lisinopril/HCTZ (Prinzide 20/12.5) 1 tab PO DAILY [facility] Last Admin: 02/26/17 09:14 Dose: 1 tab Lorazepam (Ativan) 0.5 mg PO Q6H PRN PRN Reason: Extreme agitation Last Admin: 02/25/17 03:53 Dose: 0.5 mg Lorazepam (Ativan Inj) 0.5 mg IM Q6H PRN PRN Reason: Extreme agitation Melatonin (Melatonin) 10 mg PO [facility] Last Admin: 02/25/17 20:17 Dose: 10 mg Potassium Chloride (K-Dur) 20 meq PO [facility] Last Admin: 02/26/17 09:13 Dose: 20 meq Rosuvastatin Calcium (Crestor) 5 mg PO [facility] Last Admin: 02/25/17 20:17 Dose: 5 mg Tamsulosin HCl (Flomax) 0.4 mg PO [facility] Last Admin: 02/25/17 20:17 Dose: 0.4 mg Subjective: Patient seen and chart reviewed. Nursing reports pt is doing well. Sleeping well and has a good appetite. No behaviors noted. On face to face the pt is pleasant. he does have some word finding difficulties and is slowed at times. Denies any pain and voices no concerns at this time. Tolerating meds Start Time: 11:00 Stop Time: 11:15 Mental Status Exam Vitals: Last Vital Signs Temp 97.4 F 02/25/17 19:51 Pulse 86 02/25/17 19:51 Resp 20 02/25/17 19:51 BP 135/71 02/25/17 19:51 Pulse Ox 93 02/25/17 19:51 Height: 1.68 m Weight: 103 kg - Mental Status Exam Muscle Strength/Tone: Normal Dressing: Casual Grooming: Fair Attitude: Cooperative Motor Activity: Retardation ( improved from yesterday) Eye Contact: Fair Speech: Slowed Volume: Soft Rhythm: Appropriate Rhythm Orientation: Disoriented to time, Oriented to person, Oriented to place Mood: Neutral Rate of Thoughts: Delayed Thought Organization: Organized Associations: Intact Abstract Reasoning: Poor abstract reasoning Thought Content: Ruminations (about dementia diagnosis), Helplessness Perception/Psychotic: Other (Now denies AVH) Language: Naming Intact Fund of Knowledge: Poor fund of knowledge Memory: Poor-recent Suicidal Ideation: Denies Homicidal Ideation: Denies Insight: Limited Judgement: Limited Impulse Control: Fair - Laboratory Result Diagrams: 02/26/17 06:45 02/26/17 06:45 Laboratory Results - last 24 hr 02/26/17 02/26/17 06:45 06:45 WBC 8.2 RBC 4.67 Hgb 13.5 Hct 42.8 MCV 91.6 MCH 28.9 MCHC 31.5 RDW Std Deviation 48.2 Plt Count 217 MPV 10.2 Immature Gran % (Auto) 0.4 Neut % (Auto) 48.2 Lymph % (Auto) 38.9 Gentry % (Auto) 10.8 H Eos % (Auto) 1.5 Baso % (Auto) 0.2 Neut # (Auto) 4.0 Lymph # (Auto) 3.2 Gentry # (Auto) 0.9 H Eos # (Auto) 0.1 Baso # (Auto) 0.0 Abs Immat Gran (auto) 0.03 Turbidity < 20 Sodium 142 Potassium 4.2 Chloride 98 Carbon Dioxide 31 H Anion Gap 13 BUN 36.0 H Creatinine 1.1 GFR Calculation 66 BUN/Creatinine Ratio 33 H Glucose 95 Calculated Osmolality 281 H Calcium 9.4 Total Bilirubin 0.30 Icterus Index < 2 AST 30 ALT 42 Alkaline Phosphatase 46 Total Protein 7.6 Albumin 4.2 Globulin 3.4 Albumin/Globulin Ratio 1.2 Specimen Hemolysis < 15 Assessment and Plan (1) PAF (paroxysmal atrial fibrillation) Current visit: No Status: Chronic (2) CAD (coronary artery disease) Current visit: No Status: Chronic (3) HTN (hypertension) Current visit: No Status: Chronic (4) Hyperlipidemia Current visit: No Status: Chronic (5) Obesity (BMI 30-39.9) Current visit: No Status: Chronic (6) Chronic back pain Current visit: No Status: Chronic (7) Acute hypernatremia Current visit: No Status: Acute (8) Major 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 Problem details: Due to vascular changes and frontotemporal disease R/O Medication-induced delirium or delirium due to another unknown etiology Sister has previously reported a past history of manic symptoms as well though her report of his symptoms varies at times. Current visit: No Status: Chronic Hospital Course Summary Disclaimer: The visit summary below is not to be considered part of the above Progress Note. Hospital Course: 02/21/17 Psych: Continue current care as patient is improving; consider whether addition of antidepressant may be beneficial in improving mood. 02/22/17 Psych: Start Lexapro 10mg PO daily to target mood; informed consent given by sister/DPDARRYN and described symptoms of emerging stacie, which she will alert providers of if they occur. 02/23/17 Psych: Have discussed trial of Risperidone if needed with sister/DPDARRYN; she will give answer tomorrow. 02/24/17 Psych: Patient's clinical presentation has changed significantly from to 02/23 to 02/24. Will monitor today though patient is now denying AH he previously reported and seems much less confused -- may still be part of delirium rather than mood disorder. Sister has consented to Risperdal trial if warranted but patient is doing well this morning. 02/25/17 Psych: Discussed care with patient's outpatient psychiatrist Dr. Kari Victoria. We agreed to continue current medications and both agreed that placement would be ideal to minimize agitation/confusion at home. Will discuss as much with sister. Discharge to home with plan to f/u with Dr. Victoria as an outpatient. Pt fairly stable. Continue current care
[2017-02-26] MEDS: ROSUVASTATIN 5 MG TABLET PO SCH (21:05)
[2017-02-26] MEDS: TAMSULOSIN 0.4 MG CAPSULE PO SCH (21:05)
[2017-02-26] MEDS: GABAPENTIN 300 MG CAPSULE PO SCH (21:05)
[2017-02-26] MEDS: MELATONIN 5 MG TABLET PO SCH (21:05)
[2017-02-27] MEDS: GENTAMICIN 0.3% EYE DROPS 15ml EACH EYE SCH ×4 (01:05→13:42)
[2017-02-27] MEDS: LISINOPRIL/HCTZ 20/12.5 MG TABLET PO SCH (10:59)
[2017-02-27] MEDS: APIXABAN 5 MG TABLET PO SCH (10:59)
[2017-02-27] MEDS: CHLORTHALIDONE 25 MG TABLET PO SCH (10:59)
[2017-02-27] MEDS: ESCITALOPRAM 10 MG TABLET PO SCH (10:59)
[2017-02-27] MEDS: FOLIC ACID 1 MG TABLET PO SCH (10:59)
[2017-02-27] MEDS: DIVALPROEX SPRINKLE 125 MG CAPSULE PO SCH (10:59)
--- NOTE | 2017-02-27 10:59 | Neuropsych Progress Note ---
[facility] Subjective Date: 02/27/17 - Sujective/Severity of Illness Medications: Acetaminophen (Tylenol) 650 mg PO Q6H PRN PRN Reason: Pain Last Admin: 02/25/17 20:20 Dose: 650 mg Apixaban (Eliquis) 5 mg PO BID [facility] Last Admin: 02/26/17 21:03 Dose: 5 mg Chlorthalidone (Hygroton) 25 mg PO [facility] Last Admin: 02/26/17 09:13 Dose: 25 mg Divalproex Sodium (Depakote Sprinkle) 250 mg PO DAILY [facility] Last Admin: 02/26/17 09:14 Dose: 250 mg Divalproex Sodium (Depakote Sprinkle) 500 mg PO [facility] Last Admin: 02/26/17 21:04 Dose: 500 mg Escitalopram Oxalate (Lexapro) 10 mg PO DAILY [facility] Last Admin: 02/26/17 09:16 Dose: 10 mg Folic Acid (Folate) 1 mg PO DAILY [facility] Last Admin: 02/26/17 09:15 Dose: 1 mg Gabapentin (Neurontin) 300 mg PO [facility] Last Admin: 02/26/17 21:05 Dose: 300 mg Gentamicin Sulfate (Garamycin O/S) 1 drop EACH EYE Q4HR [facility] Last Admin: 02/27/17 04:39 Dose: Not Given Lisinopril/HCTZ (Prinzide 20/12.5) 1 tab PO DAILY [facility] Last Admin: 02/26/17 09:14 Dose: 1 tab Lorazepam (Ativan) 0.5 mg PO Q6H PRN PRN Reason: Extreme agitation Last Admin: 02/25/17 03:53 Dose: 0.5 mg Lorazepam (Ativan Inj) 0.5 mg IM Q6H PRN PRN Reason: Extreme agitation Melatonin (Melatonin) 10 mg PO [facility] Last Admin: 02/26/17 21:05 Dose: 10 mg Potassium Chloride (K-Dur) 20 meq PO [facility] Last Admin: 02/26/17 09:13 Dose: 20 meq Rosuvastatin Calcium (Crestor) 5 mg PO [facility] Last Admin: 02/26/17 21:05 Dose: 5 mg Tamsulosin HCl (Flomax) 0.4 mg PO [facility] Last Admin: 02/26/17 21:05 Dose: 0.4 mg Subjective: Patient seen and chart reviewed. Nursing reports pt is doing well. Sleeping well and has a good appetite. No behaviors noted. On face to face the pt states he is doing well. he is pleasant and reports his mood is stable. Denies any S/I or psychosis. Tolerating meds. Voices no concerns at this time Start Time: 09:30 Stop Time: 09:45 Mental Status Exam Vitals: Last Vital Signs Temp 98.1 F 02/26/17 16:00 Pulse 79 02/26/17 16:00 Resp 22 02/26/17 16:00 BP 126/77 02/26/17 16:00 Pulse Ox 93 02/26/17 16:00 Height: 1.68 m Weight: 103 kg - Mental Status Exam Muscle Strength/Tone: Normal Dressing: Casual Grooming: Fair Attitude: Cooperative Motor Activity: Retardation ( improved from yesterday) Eye Contact: Fair Speech: Slowed Volume: Soft Rhythm: Appropriate Rhythm Orientation: Disoriented to time, Oriented to person, Oriented to place Mood: Neutral Rate of Thoughts: Delayed Thought Organization: Organized Associations: Intact Abstract Reasoning: Poor abstract reasoning Thought Content: Ruminations (about dementia diagnosis), Helplessness Perception/Psychotic: Other (Now denies AVH) Language: Naming Intact Fund of Knowledge: Poor fund of knowledge Memory: Poor-recent Suicidal Ideation: Denies Homicidal Ideation: Denies Insight: Limited Judgement: Limited Impulse Control: Fair - Laboratory Result Diagrams: 02/26/17 06:45 02/26/17 06:45 Assessment and Plan (1) PAF (paroxysmal atrial fibrillation) Current visit: No Status: Chronic (2) CAD (coronary artery disease) Current visit: No Status: Chronic (3) HTN (hypertension) Current visit: No Status: Chronic (4) Hyperlipidemia Current visit: No Status: Chronic (5) Obesity (BMI 30-39.9) Current visit: No Status: Chronic (6) Chronic back pain Current visit: No Status: Chronic (7) Acute hypernatremia Current visit: No Status: Acute (8) Major 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 Problem details: Due to vascular changes and frontotemporal disease R/O Medication-induced delirium or delirium due to another unknown etiology Sister has previously reported a past history of manic symptoms as well though her report of his symptoms varies at times. Current visit: No Status: Chronic Hospital Course Summary Disclaimer: The visit summary below is not to be considered part of the above Progress Note. Hospital Course: 02/21/17 Psych: Continue current care as patient is improving; consider whether addition of antidepressant may be beneficial in improving mood. 02/22/17 Psych: Start Lexapro 10mg PO daily to target mood; informed consent given by sister/TAN and described symptoms of emerging stacie, which she will alert providers of if they occur. 02/23/17 Psych: Have discussed trial of Risperidone if needed with sister/DPDARRYN; she will give answer tomorrow. 02/24/17 Psych: Patient's clinical presentation has changed significantly from to 02/23 to 02/24. Will monitor today though patient is now denying AH he previously reported and seems much less confused -- may still be part of delirium rather than mood disorder. Sister has consented to Risperdal trial if warranted but patient is doing well this morning. 02/25/17 Psych: Discussed care with patient's outpatient psychiatrist Dr. Kari Victoria. We agreed to continue current medications and both agreed that placement would be ideal to minimize agitation/confusion at home. Will discuss as much with sister. Discharge to home with plan to f/u with Dr. Victoria as an outpatient. Pt fairly stable. Continue current care 02/27/2017 Doing well. Continue current care
[2017-02-27 15:02] VITALS: BP 124/60; PULSE 59; RESP 20; TEMP 97.5; O2SAT 91
== END 2017-02-27 15:35 | disposition home or self-care (01) | DRG 884 ==
LOC: ED 12:45 → GEN 15:55
PROVIDERS: ADMIT Psychiatry & Neurology Psychiatry; ATTEND Psychiatry & Neurology Psychiatry